=== PATIENT | female | born 1965 | race Caucasian/White ===

== ENCOUNTER 2019-03-17 12:10 | Emergency (ER) | payer SELFPAY ==
--- NOTE | 2019-03-17 13:20 | ER ---
Nurse's Notes [facility] Name: Demetria Salazar Age: 53 yrs Sex: Female : 1965 Arrival Date: 03/17/2019 Time: 12:14 Bed 18 Private MD: Diagnosis: Acute pharyngitis;Acute sinusitis Presentation: 03/17 12:24 Presenting complaint: Nonproductive cough, sinus congestion, sore throat, and left hb periorbital swelling x 3 days. Transition of care: patient was not received from another setting of care. Onset of symptoms was March 14, 2019. Risk Assessment: Do you want to hurt yourself or someone else? Patient reports no desire to harm self or others. Initial Sepsis Screen: Does the patient meet any 2 criteria? No. Patient's initial sepsis screen is negative. Does the patient have a suspected source of infection? No. Patient's initial sepsis screen is negative. Care prior to arrival: None. 12:24 Method Of Arrival: Ambulatory 12:24 Acuity: EBONY 4 hb Triage Assessment: 13:02 Headache History: Denies prior headaches. General: Appears in no apparent distress. Pain: Also complains of. Pain: Denies pain. 13:02 General: Behavior is calm, cooperative. Pain: Denies pain. 13:03 Pain: Denies pain. 19:05 Pain: Denies pain. 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 - Coronavirus screen:: The patient has NOT traveled to [place], [place], or [place] in the past 14 days. The patient has NOT had contact with known/suspected case of Coronavirus? Proceed with normal triage procedures. - Social history:: Smoking status: Patient denies any tobacco usage or history of. - Ebola Screening: : No symptoms or risks identified at this time. Screenin:01 Abuse screen: Denies threats or abuse. Nutritional screening: No deficits noted. Tuberculosis screening: No symptoms or risk factors identified. Fall Risk None identified. Assessment: 12:54 General: Appears in no apparent distress. Behavior is calm, cooperative. Neuro: Level ah of Consciousness is awake, alert, obeys commands, Oriented to person, place, time, situation, Slab Grinder are equal bilaterally Moves all extremities. Cardiovascular: Heart tones S1 S2 present Capillary refill < 3 seconds Pulses are palpable in right radial artery, right dorsalis pedis artery, left radial artery and left dorsalis pedis artery. Respiratory: Airway is patent Breath sounds are clear bilaterally. Respiratory: Reports cough that is productive, Denies fever Parent/caregiver reports the patient having ears are itching. GI: No signs and/or symptoms were reported involving the gastrointestinal system. : No signs and/or symptoms were reported regarding the genitourinary system. EENT: Throat is reddened Reports nasal congestion since one week. EENT: Parent/caregiver reports the patient having swelling under left eye x 3 days. Vital Signs: 12:27 BP 140 / 85; Pulse 80; Resp 16; Temp 97.4; Pulse Ox 100% on R/A; Weight 85.73 kg; hb Height 5 ft. 2 in. (157.48 cm); Pain 3/10; 12:27 Body Mass Index 34.57 (85.73 kg, 157.48 cm) hb ED Course: 12:14 Patient arrived in ED. fj1 12:25 Triage completed. 12:27 Arm band placed on. 12:29 Juan Perez PA is PHCP. [facility] 12:29 Dwain Bird MD is Attending Physician. [facility] 12:39 Dulce Maria Boucher, RN is Primary Nurse. 12:54 Strep Sent. 13:03 Patient has correct armband on for positive identification. Bed in low position. Call light in reach. Adult w/ patient. 13:45 Throat Culture Sent. 13:56 No provider procedures requiring assistance completed. Patient did not have IV access during this emergency room visit. Administered Medications: No medications were administered Outcome: 13:19 Discharge ordered by . [facility] 13:55 Discharged to home ambulatory. 13:55 Condition: good 13:55 Discharge instructions given to patient, Instructed on discharge instructions, follow up and referral plans. medication usage, Demonstrated understanding of instructions, follow-up care, medications, Prescriptions given X 1. 13:57 Patient left the ED. Signatures: Juan Perez PA PA jmm Baxter, Heather, RN RN Nik Mayer fj1 Dulce Maria Boucher, RN RN
--- NOTE | 2019-03-17 13:20 | EDPHYS ---
Physician Documentation [facility] Name: Demetria Salazar Age: 53 yrs Sex: Female : 1965 Arrival Date: 03/17/2019 Time: 12:14 Bed 18 Private MD: ED Physician Dwain Bird HPI: 03/17 12:48 This 53 yrs old Female presents to ER via Ambulatory with complaints of Eye Swelling, jmm Sinus Pain. 12:48 Onset: The symptoms/episode began/occurred gradually, 3 day(s) ago. This is a 53 year jmm old female with a history of hypothyroidism that presents to the ED with complaints of left sided sinus pressure, sore throat, and ear ache. Patient states family has had similar symptoms. Denies fever. . 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 - Coronavirus screen:: The patient has NOT traveled to [place], [place], or [place] in the past 14 days. The patient has NOT had contact with known/suspected case of Coronavirus? Proceed with normal triage procedures. - Social history:: Smoking status: Patient denies any tobacco usage or history of. - Ebola Screening: : No symptoms or risks identified at this time. ROS: 12:48 Constitutional: Negative for fever, chills, and weight loss. jmm 12:48 Cardiovascular: Negative for chest pain, palpitations, and edema, Respiratory: Negative for shortness of breath, cough, wheezing, and pleuritic chest pain. 12:48 Eyes: Positive for discharge, itching. 12:48 ENT: Positive for sore throat. 12:48 ENT: Positive for ear pain. 12:48 All other systems are negative. Exam: 12:48 Constitutional: This is a well developed, well nourished patient who is awake, alert, jmm and in no acute distress. 12:48 Neck: Trachea midline, Supple Chest/axilla: Normal chest wall appearance and motion. Cardiovascular: Regular rate and rhythm. No edema appreciated Respiratory: Normal respirations, no respiratory distress appreciated Abdomen/GI: Non distended, soft Back: Normal ROM Skin: General appearance color normal MS/ Extremity: Moves all extremities, no obvious deformities appreciated, no edema noted to the lower extremities Neuro: Awake and alert, normal gait Psych: Behavior is normal, Mood is normal, Patient is cooperative and pleasant 12:48 Head/face: Sinus tenderness, that is moderate, is located over the left frontal sinus, left ethmoid sinus and left maxillary sinus. 12:48 ENT: Posterior pharynx: Tonsils: enlarged on the right, enlarged on the left, with erythema, erythema, that is moderate. Vital Signs: 12:27 BP 140 / 85; Pulse 80; Resp 16; Temp 97.4; Pulse Ox 100% on R/A; Weight 85.73 kg; hb Height 5 ft. 2 in. (157.48 cm); Pain 3/10; 12:27 Body Mass Index 34.57 (85.73 kg, 157.48 cm) hb MDM: 12:35 Patient medically screened. [facility] 13:18 Data reviewed: vital signs, nurses notes. Counseling: I had a detailed discussion with linnea the patient and/or guardian regarding: the historical points, exam findings, and any diagnostic results supporting the discharge/admit diagnosis, lab results, the need for outpatient follow up, to return to the emergency department if symptoms worsen or persist or if there are any questions or concerns that arise at home. ED course: Patient is alert and non toxic in appearance in the ED. Patient is advised to follow up with her pcp and otherwise given strict return precautions. Patient understood and agrees with the plan of care. . 03/17 12:47 Order name: Strep; Complete Time: 13:18 [facility] 03/17 13:19 Order name: Throat Culture EDMS Administered Medications: No medications were administered Disposition: 03/17/19 13:19 Discharged to Home. Impression: Acute pharyngitis, Acute sinusitis. - Condition is Stable. - Discharge Instructions: Pharyngitis, Sinusitis, Adult. - Prescriptions for Amoxicillin 875 mg Oral Tablet - take 1 tablet by ORAL route every 12 hours for 10 days; 20 tablet. - Medication Reconciliation Form, Thank You Letter, Antibiotic Education, Prescription Opioid Use form. - Follow up: Private Physician; When: 2 - 3 days; Reason: Recheck today's complaints, Continuance of care, Re-evaluation by your physician. Addendum: 03/19/2019 07:07 Co-signature as Attending Physician, Dwain Bird MD I agree with the assessment and c moody plan of care. Signatures: Dispatcher [employer] EDDwain Soto MD MD cha Mickail, Joel, PA PA jmm Baxter, Heather, GOMEZ DYER Dulce Maria Boucher RN RN Corrections: (The following items were deleted from the chart) 03/17 13:57 13:19 03/17/2019 13:19 Discharged to Home. Impression: Acute pharyngitis; Acute ah sinusitis. Condition is Stable. Forms are Medication Reconciliation Form, Thank You Letter, Antibiotic Education, Prescription Opioid Use. Follow up: Private Physician; When: 2 - 3 days; Reason: Recheck today's complaints, Continuance of care, Re-evaluation by your physician. linnea
[2019-03-17 14:02] VITALS: BP 140/85; TEMP 97.4; O2SAT 100
== END 2019-03-17 13:57 | disposition home or self-care (01) ==
LOC: ER 12:10
DX: J01.90 Acute sinusitis, unspecified (principal)
CPT/HCPCS: 87070; 87081; 99283

== ENCOUNTER 2020-08-04 14:28 | Emergency (ER) | payer OTHER ==
--- NOTE | 2020-08-04 17:11 | ER ---
Nurse's Notes [facility] Name: Demetria Salazar Age: 54 yrs Sex: Female : 1965 Arrival Date: 08/04/2020 Time: 14:28 Bed Waiting Private MD: Diagnosis: Presentation: 08/04 14:48 Chief complaint: Patient states: L elbow pain for 5 days. No trauma or falls. PMS ll1 intact. Coronavirus screen: Client denies travel out of the [place] in the last 14 days. At this time, the client does not indicate any symptoms associated with coronavirus-19. Ebola Screen: Patient denies travel to an Ebola-affected area in the 21 days before illness onset. Initial Sepsis Screen: Does the patient meet any 2 criteria? No. Patient's initial sepsis screen is negative. Does the patient have a suspected source of infection? Yes: Bone or joint infection. Risk Assessment: Do you want to hurt yourself or someone else? Patient reports no desire to harm self or others. Onset of symptoms was July 31, 2020. 14:48 Method Of Arrival: Ambulatory ll1 14:48 Acuity: EBONY 4 ll1 Historical: - Allergies: 14:50 Aspirin; ll1 14:50 Codeine; ll1 - PMHx: 14:50 Hypothyroidism; ll1 - PSHx: 14:50 Plastic - newberry; ; ll1 - Immunization history:: Client reports having NOT received the Covid vaccine. Flu vaccine is not up to date. - Social history:: Smoking status: Patient reports the use of cigarette tobacco products, smokes one-half pack cigarettes per day. Vital Signs: 14:48 BP 105 / 70; Pulse 90; Resp 17; Temp 97.2; Pulse Ox 96% ; Weight 71.21 kg; Height 5 ft. ll1 2 in. (157.48 cm); Pain 9/10; 14:48 Body Mass Index 28.72 (71.21 kg, 157.48 cm) ll1 ED Course: 14:28 Patient arrived in ED. as 14:49 Triage completed. ll1 14:50 Arm band placed on. ll1 Administered Medications: No medications were administered Outcome: 17:11 Patient left the ED. iw Signatures: Josiane Alarcon Irene, RN RN iw Hank, Lynsay, RN RN ll1
[2020-08-04 17:51] VITALS: BP 105/70; TEMP 97.2; O2SAT 96
== END 2020-08-04 17:11 | disposition left against medical advice (07) ==
LOC: ER 14:28
DX: M25.522 Pain in left elbow (principal); F17.210 Nicotine dependence, cigarettes, uncomplicated; E03.9 Hypothyroidism, unspecified; Z53.21 Procedure and treatment not carried out due to patient leaving prior to being seen by health care provider
CPT/HCPCS: 99281

== ENCOUNTER 2021-01-14 15:20 | Emergency (ER) | payer OTHER ==
[2021-01-14 17:14] LABS: Urine Blood Negative (Negative); Urine Glucose Negative (Negative); Urine Protein Negative (Negative); Urine Specific Gravity 1.025 (1.005-1.030)
[2021-01-14 17:22] LABS: Absolute Lymphocytes (CBC) 2.4 K/uL (0.7-4.9); Basophils % 0.7 % (0-1.3); Hematocrit 39.7 % (36.0-45.0); Lymphocytes % 39.3 % (15.3-44.8); MPV 7.6 fL (7.6-11.3)
[2021-01-14 17:41] LABS: BUN Blood Urea Nitrogen 21 mg/dL (7-18); Bicarbonate 30 mmol/L (21-32); Glucose Level 120 mg/dL (74-106); Potassium 3.9 mmol/L (3.5-5.1); Sodium Level 143 mmol/L (136-145)
[2021-01-14 17:42] LABS: ALT/SGPT 22 U/L (12-78); AST/SGOT 20 U/L (15-37); Albumin 3.4 g/dL (3.4-5.0); Alkaline Phosphatase 76 U/L (45-117); Bilirubin Direct < 0.1 mg/dL (0-0.2); Bilirubin Total 0.2 mg/dL (0.2-1.0); Lipase 271 U/L (73-393); Protein, Total 7.1 g/dL (6.4-8.2)
[2021-01-14] MEDS ORDERED: ONDANSETRON 4 MG/2 ML VIAL ONE (17:58)
[2021-01-14] MEDS ORDERED: FAMOTIDINE 20 MG/2 ML VIAL IV ONE (18:00)
[2021-01-14 18:40] LABS: Urine Bacteria LOADED /HPF (<20); Urine RBC <5 /HPF (NONE SEEN)
--- NOTE | 2021-01-14 18:47 | RAD REPORT ---
EXAM DESCRIPTION: US - Abdomen Exam Limited - 01/14/2021 6:31 pm CLINICAL HISTORY: Abdominal pain. COMPARISON: None. FINDINGS: The patient had eaten 2 hours prior to the examination. This results in the gallbladder be ing contracted limiting evaluation. There are several small echogenic structures within the gallbladder. Clear posterior shadowing is not seen. The biliary tree is normal caliber. IMPRESSION: Several small echogenic structures within the gallbladder may represent stones or polyps . Examination is limited as the patient was not NPO resulting in the gallbladder being contracted. It is recommended that the patient have a gallbladder ultrasound on another day after fasting
[2021-01-14] MEDS ORDERED: CEFTRIAXONE 1000 MG/VIAL ONE (19:04)
--- NOTE | 2021-01-14 19:28 | ER ---
Nurse's Notes [facility] Name: Demetria Salazar Age: 55 yrs Sex: Female : 1965 Arrival Date: 01/14/2021 Time: 15:22 Bed 15 Private MD: Diagnosis: Diarrhea, unspecified;Other cholelithiasis without obstruction;UTI/ Urinary tract infection, site not specified Presentation: 01/14 16:08 Chief complaint: Patient states: Nausea and Diarrhea x2 days. States pressure in vg1 Epigastric area. Also states left lower back pain. Coronavirus screen: Vaccine status: Patient reports receiving the 2nd dose of the covid vaccine. Client denies travel out of the [place] in the last 14 days. Ebola Screen: Patient negative for fever greater than or equal to 101.5 degrees Fahrenheit, and additional compatible Ebola Virus Disease symptoms. Initial Sepsis Screen: Does the patient meet any 2 criteria? No. Patient's initial sepsis screen is negative. Does the patient have a suspected source of infection? No. Patient's initial sepsis screen is negative. Risk Assessment: Do you want to hurt yourself or someone else? Patient reports no desire to harm self or others. Onset of symptoms was January 12, 2021. 16:08 Method Of Arrival: Ambulatory vg1 16:08 Acuity: EBONY 3 vg1 Triage Assessment: 16:11 General: Appears in no apparent distress. uncomfortable, Behavior is calm, cooperative. vg1 Pain: Complains of pain in epigastric area. GI: Reports diarrhea, nausea. 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 - Social history:: Smoking status: Patient reports the use of cigarette tobacco products, smokes one-half pack cigarettes per day. Screenin:55 Abuse screen: Denies threats or abuse. Denies injuries from another. Nutritional jh5 screening: No deficits noted. Tuberculosis screening: No symptoms or risk factors identified. Fall Risk None identified. Assessment: 19:28 General: Appears in no apparent distress. Behavior is calm, cooperative. Neuro: Level jh5 of Consciousness is awake, alert, Oriented to person, place, time, situation. Cardiovascular: Reports None. Respiratory: No deficits noted. Airway is patent Trachea midline Respiratory effort is even, unlabored. GI: Abdomen is flat, non-distended, Reports diarrhea, nausea. Vital Signs: 16:08 BP 116 / 72; Pulse 76; Resp 16; Temp 98.4; Pulse Ox 98% ; Weight 72.57 kg; Height 5 ft. vg1 2 in. (157.48 cm); Pain 7/10; 19:28 BP 119 / 71; Pulse 72; Resp 19; Pulse Ox 99% on R/A; jh5 16:08 Body Mass Index 29.26 (72.57 kg, 157.48 cm) vg1 ED Course: 15:22 Patient arrived in ED. as 16:11 Triage completed. vg1 16:11 Arm band placed on. vg1 16:41 Frank Rangel PA is PHCP. jr8 16:41 Dwain Bird MD is Attending Physician. jr8 16:45 Marisa Ventura, GOMEZ is Primary Nurse. jh5 18:31 Abdomen Limited In Process Unspecified. EDMS 19:27 Sunny Yu MD is Referral Physician. jr8 19:55 Patient has correct armband on for positive identification. Bed in low position. Call 5 light in reach. Side rails up X2. 19:55 No provider procedures requiring assistance completed. Inserted saline lock: 20 gauge jh5 in right antecubital area, using aseptic technique. 19:56 IV discontinued, intact, bleeding controlled, No redness/swelling at site. Pressure jh5 dressing applied. Administered Medications: 18:07 Drug: Zofran (Ondansetron) 4 mg Route: IVP; Site: right antecubital; jh5 18:07 Drug: Pepcid (famotidine) 20 mg Route: IVP; Site: right antecubital; jh5 19:06 Drug: Rocephin (cefTRIAXone) 1 grams Route: IV; Rate: calculated rate; Site: right jh5 antecubital; 19:17 Follow up: IV Status: Completed infusion; IV Intake: 10ml jh5 Intake: 19:17 IV: 10ml; Total: 10ml. 5 Outcome: 19:28 Discharge ordered by . jr8 19:55 Discharged to home with friend. jh5 19:55 Condition: good 19:55 Discharge instructions given to patient, friend, Instructed on discharge instructions, follow up and referral plans. no drinking with medication, Demonstrated understanding of instructions, follow-up care, medications, Prescriptions given X 4. 19:56 Patient left the ED. jh5 Signatures: Dispatcher [employer] EDJosiane Leger Josh, PA PA jr8 Garcia, Victoria, RN RN 1 Marisa Ventura RN RN jh5 Corrections: (The following items were deleted from the chart) 16:13 16:11 PMHx: Hypothyroidism; vg1 vg1 16:13 16:11 PMHx: None; vg1 vg1
--- NOTE | 2021-01-14 19:28 | EDPHYS ---
Physician Documentation [facility] Name: Demetria Salazar Age: 55 yrs Sex: Female : 1965 Arrival Date: 01/14/2021 Time: 15:22 Bed 15 Private MD: ED Physician Dwain Bird HPI: 01/14 18:19 This 55 yrs old Female presents to ER via Ambulatory with complaints of Nausea, jr8 Diarrhea. 18:19 This is a 55-year-old female that has had several days of nausea and diarrhea. Patient jr8 denies any fevers has mild epigastric discomfort.. 19:26 Severity of symptoms: At their worst the symptoms were mild in the emergency department jr8 the symptoms are unchanged. The patient has not experienced similar symptoms in the past. The patient has not recently seen a physician. 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 - Social history:: Smoking status: Patient reports the use of cigarette tobacco products, smokes one-half pack cigarettes per day. ROS: 19:26 Eyes: Negative for injury, pain, redness, and discharge, ENT: Negative for injury, jr8 pain, and discharge, Neck: Negative for injury, pain, and swelling, Cardiovascular: Negative for chest pain, palpitations, and edema, Respiratory: Negative for shortness of breath, cough, wheezing, and pleuritic chest pain, Back: Negative for injury and pain, MS/Extremity: Negative for injury and deformity, Skin: Negative for injury, rash, and discoloration, Neuro: Negative for headache, weakness, numbness, tingling, and seizure. 19:26 Abdomen/GI: Positive for abdominal pain, nausea, diarrhea. Exam: 19:26 Constitutional: This is a well developed, well nourished patient who is awake, alert, jr8 and in no acute distress. Cardiovascular: Regular rate and rhythm with a normal S1 and S2. No gallops, murmurs, or rubs. Normal PMI, no JVD. No pulse deficits. Respiratory: Lungs have equal breath sounds bilaterally, clear to auscultation and percussion. No rales, rhonchi or wheezes noted. No increased work of breathing, no retractions or nasal flaring. Back: No spinal tenderness. No costovertebral tenderness. Full range of motion. Skin: Warm, dry with normal turgor. Normal color with no rashes, no lesions, and no evidence of cellulitis. MS/ Extremity: Pulses equal, no cyanosis. Neurovascular intact. Full, normal range of motion. Neuro: Awake and alert, GCS 15, oriented to person, place, time, and situation. Cranial nerves II-XII grossly intact. Motor strength 5/5 in all extremities. Sensory grossly intact. 19:26 Abdomen/GI: Inspection: abdomen appears normal, Bowel sounds: active, all quadrants, Palpation: soft, in all quadrants, mild abdominal tenderness, in the epigastric area, mass, is not appreciated, rebound tenderness, is not appreciated, voluntary guarding, is not appreciated, involuntary guarding, is not appreciated, no appreciated organomegaly, Indicators: McBurney's point is not tender, Rogers's sign is negative, Rovsing's sign is negative, Liver: no appreciated palpable abnormalities. Vital Signs: 16:08 BP 116 / 72; Pulse 76; Resp 16; Temp 98.4; Pulse Ox 98% ; Weight 72.57 kg; Height 5 ft. vg1 2 in. (157.48 cm); Pain 7/10; 19:28 BP 119 / 71; Pulse 72; Resp 19; Pulse Ox 99% on R/A; jh5 16:08 Body Mass Index 29.26 (72.57 kg, 157.48 cm) vg1 MDM: 16:41 Patient medically screened. [facility] 19:27 Data reviewed: vital signs, nurses notes, lab test result(s), radiologic studies, jr8 ultrasound, and as a result, I will discharge patient. Data interpreted: Pulse oximetry: on room air is 98 %. Interpretation: normal. 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 01/14 16:41 Order name: Basic Metabolic Panel; Complete Time: 17:50 [facility] 01/14 16:41 Order name: CBC with Diff; Complete Time: 17:37 [facility] 01/14 16:41 Order name: Hepatic Function; Complete Time: 17:50 [facility] 01/14 16:41 Order name: Lipase; Complete Time: 17:50 [facility] 01/14 16:41 Order name: Urine Microscopic Only; Complete Time: 18:41 [facility] 01/14 17:14 Order name: Urine Dipstick-Ancillary; Complete Time: 17:37 [facility] 01/14 16:41 Order name: IV Saline Lock; Complete Time: 17:14 [facility] 01/14 16:41 Order name: Labs collected and sent; Complete Time: 17:14 [facility] 01/14 17:51 Order name: US Abdomen Limited; Complete Time: 18:49 [facility] 01/14 18:41 Order name: Urine Culture [facility] 01/14 16:41 Order name: Urine Dipstick-Ancillary (obtain specimen); Complete Time: 17:14 [facility] 01/14 17:13 Order name: Labs - recollect needed: recollect more urine in a yellow top tube please.; bd Complete Time: 17:15 Administered Medications: 18:07 Drug: Zofran (Ondansetron) 4 mg Route: IVP; Site: right antecubital; [facility] 18:07 Drug: Pepcid (famotidine) 20 mg Route: IVP; Site: right antecubital; [facility] 19:06 Drug: Rocephin (cefTRIAXone) 1 grams Route: IV; Rate: calculated rate; Site: right [facility] antecubital; 19:17 Follow up: IV Status: Completed infusion; IV Intake: 10ml [facility] Disposition: 01/15 09:12 Co-signature as Attending Physician, Dwain Bird MD I agree with the assessment and henri plan of care. Disposition Summary: 01/14/21 19:28 Discharge Ordered Location: Home jr Problem: new jr8 Symptoms: have improved jr8 Condition: Stable jr8 Diagnosis - Diarrhea, unspecified jr8 - Other cholelithiasis without obstruction jr8 - UTI/ Urinary tract infection, site not specified jr8 Followup: jr8 - With: Sunny Yu MD - When: 2 - 3 days - Reason: Recheck today's complaints, Continuance of care, Re-evaluation by your physician Discharge Instructions: - Discharge Summary Sheet jr8 - Diarrhea, Adult jr8 - Urinary Tract Infection, Adult jr8 - Cholelithiasis jr8 Forms: - Medication Reconciliation Form jr8 - Thank You Letter jr8 - Antibiotic Education jr8 - Prescription Opioid Use jr8 - Work release form as6 Prescriptions: - Cipro 500 mg Oral Tablet - take 1 tablet by ORAL route every 12 hours for 10 days; 20 tablet; Refills: 0, jr8 Product Selection Permitted - Flagyl 500 mg Oral Tablet - take 1 tablet by ORAL route every 6 hours for 10 days; 40 tablet; Refills: 0, jr8 Product Selection Permitted - Zofran 4 mg Oral Tablet - take 1 tablet by ORAL route every 12 hours As needed; 20 tablet; Refills: 0, jr8 Product Selection Permitted - dicyclomine 20 mg Oral Tablet - take 1 tablet by ORAL route 3 times per day As needed; 20 tablet; Refills: 0, jr8 Product Selection Permitted Signatures: Dispatcher [employer] Leyda Lepe Corey, MD MD cha Roszak, Josh, PA PA jr8 Olamide Ren, RN RN vg1 Marisa Ventura RN RN jh5 Corrections: (The following items were deleted from the chart) 01/14 16:13 16:11 PMHx: Hypothyroidism; vg1 vg1 16:13 16:11 PMHx: None; vg1 vg1
[2021-01-14 20:10] VITALS: TEMP 98.4
[2021-01-14 20:13] VITALS: BP 119/71; O2SAT 99
== END 2021-01-14 19:56 | disposition home or self-care (01) ==
LOC: ER 15:20
DX: K80.80 Other cholelithiasis without obstruction (principal); N39.0 Urinary tract infection, site not specified; F17.210 Nicotine dependence, cigarettes, uncomplicated; Z88.5 Allergy status to narcotic agent; Z88.6 Allergy status to analgesic agent
CPT/HCPCS: 87088; 85025; 87086; 80048; 36415; 80076; 83690; 76705; 96375; 96374; 99284; J2405; 81003; 81015

== ENCOUNTER 2021-01-28 10:15 | Emergency (ER) | payer OTHER ==
[2021-01-28 11:35] LABS: SARS-COV-2 RT PCR NEGATIVE (NEGATIVE)
--- NOTE | 2021-01-28 11:59 | RAD REPORT ---
EXAM DESCRIPTION: RAD - Chest Single View - 01/28/2021 11:32 am CLINICAL HISTORY: COUGH COMPARISON: No comparisons FINDINGS: Lines: None. Lungs: No evidence of edema or pneumonia. Pleural: No significant pleural effusions or pneumothorax. Cardiac: The heart size is within normal limits. Bones: No acute fractures. Other: IMPRESSION: No acute cardiopulmonary disease.
--- NOTE | 2021-01-28 12:04 | ER ---
Nurse's Notes [facility] Name: Demetria Salazar Age: 55 yrs Sex: Female : 1965 Arrival Date: 01/28/2021 Time: 10:16 Bed 11 Private MD: Diagnosis: Cough Presentation: 01/28 10:27 Chief complaint: Patient states: Cough, sore throat, CP with cough for 3 days. ll1 Coronavirus screen: Vaccine status: Patient reports being unvaccinated. Client denies travel out of the [place] in the last 14 days. congestion, cough unrelated to allergies, difficulty breathing, shortness of breath, sore throat, Client presents with at least one sign or symptom that may indicate coronavirus-19. Standard/surgical mask placed on the client. Ebola Screen: Patient denies travel to an Ebola-affected area in the 21 days before illness onset. Initial Sepsis Screen: Does the patient meet any 2 criteria? No. Patient's initial sepsis screen is negative. Does the patient have a suspected source of infection? Yes: Productive cough/pneumonia. Risk Assessment: Do you want to hurt yourself or someone else? Patient reports no desire to harm self or others. Onset of symptoms was January 26, 2021. 10:27 Method Of Arrival: Ambulatory ll1 10:27 Acuity: EBONY 3 ll1 Historical: - Allergies: 10:26 Aspirin; ll1 10:26 Codeine; ll1 - PMHx: 10:26 Hypothyroidism; ll1 - PSHx: 10:26 section; ll1 - Immunization history:: Client reports having NOT received the Covid vaccine. - Social history:: Smoking status: Patient reports the use of cigarette tobacco products, smokes one-half pack cigarettes per day. - Family history:: not pertinent. - Hospitalizations: : No recent hospitalization is reported. Screenin:34 Abuse screen: Denies threats or abuse. Denies injuries from another. Nutritional jh5 screening: No deficits noted. Tuberculosis screening: No symptoms or risk factors identified. Fall Risk None identified. Assessment: 10:30 General: Appears in no apparent distress. comfortable, well groomed, well developed, jh5 well nourished, Behavior is calm, cooperative, appropriate for age. Pain: Denies pain. Pain does not radiate. Pain began when she coughs. Cardiovascular: Capillary refill < 3 seconds Patient's skin is warm and dry. Respiratory: Airway is patent Trachea midline Respiratory effort is even, unlabored, Respiratory pattern is regular, symmetrical. Vital Signs: 10:27 BP 119 / 86; Pulse 86; Resp 16; Temp 97.8; Pulse Ox 98% ; ll1 ED Course: 10:16 Patient arrived in ED. am2 10:19 Dk Silver MD is Attending Physician. rn 10:26 Arm band placed on Patient placed in an exam room, on a stretcher. ll1 10:28 Triage completed. ll1 10:34 Patient has correct armband on for positive identification. Bed in low position. Call [facility] light in reach. Side rails up X 1. 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 Pulse ox on. NIBP on. 10:43 Strep Sent. 5 10:44 No provider procedures requiring assistance completed. Patient maintains SpO2 [facility] saturation greater than 95% on room air. 11:00 Marisa Ventura, RN is Primary Nurse. [facility] 11:32 XRAY Chest (1 view) In Process Unspecified. EDMS Administered Medications: No medications were administered Outcome: 12:03 Discharge ordered by . rn 12:31 Patient left the ED. 5 Signatures: Dispatcher [employer] EDMS Dk Silver MD MD rn Moreno, Amanda am2 Tano Mckinney, GOMEZ RN [facility] Marisa Ventura, RN RN 5 Corrections: (The following items were deleted from the chart) 10:53 10:43 Influenza Screen (A \T\ B)+BA.LAB.BRZ drawn and sent. [facility] EDKY
--- NOTE | 2021-01-28 12:04 | EDPHYS ---
Physician Documentation [facility] Name: Demetria Salazar Age: 55 yrs Sex: Female : 1965 Arrival Date: 01/28/2021 Time: 10:16 Bed 11 Private MD: ED Physician Dk Silver HPI: 01/28 10:33 This 55 yrs old Female presents to ER via Ambulatory with complaints of Chest rn Tightness, Cough. 10:33 The patient or guardian reports cough. rn 10:33 Onset: The symptoms/episode began/occurred 3 day(s) ago. Severity of symptoms: At their rn worst the symptoms were mild, in the emergency department the symptoms are unchanged. Modifying factors: The symptoms are alleviated by nothing, the symptoms are aggravated by nothing. Associated signs and symptoms: Pertinent positives: sore throat, Pertinent negatives: fever. The patient has experienced similar episodes in the past. The patient has not recently seen a physician. Patient reports cough and chest tightness for 3 days. Reports chest hurts and feels tight when coughing. Denies fever denies runny nose. Positive for sore throat. No trauma. Denies any chest pain at rest or with exertion. No diaphoresis. No abdominal pain. No vomiting. Did have small amount of diarrhea. Positive active smoker. Historical: - Allergies: 10:26 Aspirin; ll1 10:26 Codeine; ll1 - PMHx: 10:26 Hypothyroidism; ll1 - PSHx: 10:26 section; ll1 - Immunization history:: Client reports having NOT received the Covid vaccine. - Social history:: Smoking status: Patient reports the use of cigarette tobacco products, smokes one-half pack cigarettes per day. - Family history:: not pertinent. - Hospitalizations: : No recent hospitalization is reported. ROS: 10:33 Constitutional: Negative for fever, chills, and weight loss, Eyes: Negative for injury, rn pain, redness, and discharge, Neck: Negative for injury, pain, and swelling, Cardiovascular: Negative for palpitations, and edema, Respiratory: Positive for cough Abdomen/GI: Negative for abdominal pain, nausea, vomiting, and constipation, Back: Negative for injury and pain, : Negative for injury, bleeding, discharge, and swelling, MS/Extremity: Negative for injury and deformity, Skin: Negative for injury, rash, and discoloration, Neuro: Negative for headache, weakness, numbness, tingling, and seizure. Exam: 10:33 Constitutional: Ambulatory to room without difficulty or requiring assistance rn Head/Face: Normocephalic, atraumatic. Eyes: Periorbital areas with no swelling, redness, or edema. Cardiovascular: Regular rate and rhythm. No pulse deficits. Respiratory: Speaking full sentences, unlabored. No increased work of breathing, no retractions or nasal flaring. Abdomen/GI: Soft, non-tender Skin: Warm, dry MS/ Extremity: Pulses equal, no cyanosis. Neurovascular intact. Full, normal range of motion. Equal circumference. Neuro: Awake and alert, GCS 15, oriented to person, place, time, and situation. Motor strength 5/5 in all extremities. Sensory grossly intact. Cerebellar exam normal. Normal gait. 10:54 ECG was reviewed by the Attending Physician. rn Vital Signs: 10:27 BP 119 / 86; Pulse 86; Resp 16; Temp 97.8; Pulse Ox 98% ; ll1 MDM: 10:19 Patient medically screened. rn 12:02 Differential Diagnosis: Bronchitis Influenza Upper Respiratory Infection Sinusitis rn Pharyngitis Viral Syndrome Pneumonia. Data reviewed: vital signs, nurses notes, lab test result(s), EKG, radiologic studies, and as a result, I will discharge patient. Counseling: I had a detailed discussion with the patient and/or guardian regarding: the historical points, exam findings, and any diagnostic results supporting the discharge/admit diagnosis, lab results, radiology results, the need for outpatient follow up, to return to the emergency department if symptoms worsen or persist or if there are any questions or concerns that arise at home. Special discussion: I discussed with the patient/guardian in detail that at this point there is no indication for admission to the hospital. It is understood, however, that if the symptoms persist or worsen the patient needs to return immediately for re-evaluation. 01/28 10:31 Order name: SARS-COV-2 RT PCR (Document "Date of Onset" if Symptomatic) rn 01/28 10:31 Order name: Strep; Complete Time: 12:02 rn 01/28 10:52 Order name: COVID-19/FLU A+B; Complete Time: 12:02 EDCO 01/28 11:02 Order name: Throat Culture EDCO 01/28 10:31 Order name: XRAY Chest (1 view); Complete Time: 12:02 rn 01/28 10:31 Order name: EKG; Complete Time: 10: rn 01/28 10:31 Order name: EKG - Nurse/Tech; Complete Time: 10:52 rn EC:54 Rate is 69 beats/min. Rhythm is regular. QRS [place] is Normal. MO interval is normal. QRS rn interval is normal. QT interval is normal. No Q waves. T waves are Normal. No ST changes noted. Clinical impression: Normal ECG. Interpreted by me. Reviewed by me. 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 [facility]CO EDMS 10:53 10:31 Influenza Screen (A \\T\\ B)+BA.LAB.BRZ ordered. [facility]CO EDMS
[2021-01-28 12:37] VITALS: BP 119/86; TEMP 97.8; O2SAT 98
== END 2021-01-28 12:31 | disposition home or self-care (01) ==
LOC: ER 10:15
DX: R05.9 Cough, unspecified (principal); E03.9 Hypothyroidism, unspecified; F17.210 Nicotine dependence, cigarettes, uncomplicated; Z20.822 Contact with and (suspected) exposure to COVID-19
CPT/HCPCS: 93005; 87070; 87081; 0240U; 71045; 99284

== ENCOUNTER 2021-06-21 13:36 | Emergency (ER) | payer OTHER ==
[2021-06-21] MEDS ORDERED: HYDROCODONE/APAP 10/325 TAB ONE (14:32)
[2021-06-21] MEDS ORDERED: dexAMETHasone 10 MG/ML VIAL ONE (14:32)
[2021-06-21] MEDS ORDERED: KETOROLAC 30 MG/ML INJ ONE (14:32)
[2021-06-21] MEDS ORDERED: ONDANSETRON 4 MG (ODT) TAB ONE ×2 (14:33→14:36)
[2021-06-21] MEDS ORDERED: LIDOCAINE 4% PATCH ONE (14:33)
--- NOTE | 2021-06-21 15:33 | EDPHYS ---
Physician Documentation [facility] Name: Demetria Salazar Age: 55 yrs Sex: Female : 1965 Arrival Date: 06/21/2021 Time: 13:38 Bed 10 Private MD: ED Physician Dwain Bird HPI: 06/21 14:15 This 55 yrs old Female presents to ER via Ambulatory with complaints of Low Back Pain. pm1 14:15 The patient presents with pain that is acute. The symptoms are located in the left low pm1 back. The pain radiates to the left leg. The problem was sustained from unknown cause. Onset: The symptoms/episode began/occurred 2 day(s) ago. Modifying factors: The patient symptoms are alleviated by nothing, the patient symptoms are aggravated by movement. Associated signs and symptoms: Pertinent negatives: dysuria, fever, incontinence, numbness, tingling. Severity of symptoms: in the emergency department the symptoms are unchanged, a " 10" out of "10". The patient has not experienced similar symptoms in the past. The patient has been recently seen by a physician: Patient was seen at [place] [facility] with same complaint and a CT to rule out kidney stone, blood work, and urine sample were performed. Patient reports negative exam and was diagnosed with sciatica. Patient was given Toradol and discharged home. Patient reports no improvement in pain and is here for evaluation and treatment of sciatic pain. 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 - Social history:: Smoking status: Patient reports the use of cigarette tobacco products, smokes one-half pack cigarettes per day. ROS: 14:15 Constitutional: Negative for fever, chills, and weight loss, Cardiovascular: Negative pm1 for chest pain, palpitations, and edema, Respiratory: Negative for shortness of breath, cough, wheezing, and pleuritic chest pain, Abdomen/GI: Negative for abdominal pain, nausea, vomiting, diarrhea, and constipation. 14:15 : Negative for injury, bleeding, discharge, and swelling, MS/Extremity: Negative for injury and deformity, Skin: Negative for injury, rash, and discoloration, Neuro: Negative for headache, weakness, numbness, tingling, and seizure. 14:15 Back: Positive for of the left low back. 14:15 All other systems are negative. Exam: 14:15 Constitutional: This is a well developed, well nourished patient who is awake, alert, pm1 and in no acute distress. Head/Face: Normocephalic, atraumatic. 14:15 Skin: Warm, dry with normal turgor. Normal color with no rashes, no lesions, and no evidence of cellulitis. MS/ Extremity: Pulses equal, no cyanosis. Neurovascular intact. Full, normal range of motion. 14:15 Cardiovascular: Exam negative for acute changes, Rate: normal, Rhythm: regular, Pulses: no pulse deficits are appreciated. 14:15 Respiratory: Exam negative for acute changes, respiratory distress, shortness of breath. 14:15 Abdomen/GI: Exam negative for acute changes, Inspection: abdomen appears normal, Palpation: abdomen is soft and non-tender, in all quadrants. 14:15 Back: vertebral tenderness, is not appreciated, muscle spasm, is appreciated in the left low back. 14:15 Neuro: Exam negative for acute changes, Orientation: is normal, Motor: is normal, moves all fours. Vital Signs: 13:59 BP 120 / 69; Pulse 67; Resp 18; Temp 97.0; Pulse Ox 100% on R/A; Weight 72.57 kg; ph Height 5 ft. 2 in. (157.48 cm); 13:59 Body Mass Index 29.26 (72.57 kg, 157.48 cm) ph MDM: 14:01 Patient medically screened. [facility] 15:30 Data reviewed: vital signs. Data interpreted: Pulse oximetry: on room air is 100 %. pm1 Interpretation: normal. Counseling: I had a detailed discussion with the patient and/or guardian regarding: the historical points, exam findings, and any diagnostic results supporting the discharge/admit diagnosis, the need for outpatient follow up, to return to the emergency department if symptoms worsen or persist or if there are any questions or concerns that arise at home. 15:37 ED course: PMPAware reviewed. pm1 Administered Medications: 14:31 Drug: Ondansetron 4 mg Route: PO; ss 15:41 Follow up: Response: No adverse reaction ph 14:32 Drug: Decadron (dexamethasone) 10 mg Route: IM; Site: right deltoid; ss 15:41 Follow up: Response: No adverse reaction ph 14:39 Drug: TORadol (ketorolac) 60 mg Route: IM; Site: right gluteus; ss 15:41 Follow up: Response: No adverse reaction ph 14:39 Drug: Lidoderm Patch 5 % (700 mg/patch) 1 patches {Note: 4% applied as available from pharmacy..} Route: Topical; Site: affected area; 15:41 Follow up: Response: No adverse reaction; Pain is decreased ph 14:40 Drug: [place] (HYDROcodone-acetaminophen) 10 mg-325 mg 1 tabs Route: PO; ss 15:41 Follow up: Response: No adverse reaction; Pain is decreased; RASS: Alert and Calm (0) ph Disposition Summary: 06/21/21 15:32 Discharge Ordered Location: Home pm1 Problem: new pm1 Symptoms: have improved pm1 Condition: Stable pm1 Diagnosis - Lumbago with sciatica, left side pm1 Followup: pm1 - With: Emergency Department - When: As needed - Reason: Worsening of condition Followup: pm1 - With: Private Physician - When: 2 - 3 days - Reason: Recheck today's complaints, Continuance of care, Re-evaluation by your physician Discharge Instructions: - Discharge Summary Sheet pm1 - Sciatica pm1 Forms: - Medication Reconciliation Form pm1 - Thank You Letter pm1 - Antibiotic Education pm1 - Prescription Opioid Use pm1 - Work release form ph Prescriptions: - Medrol (Darin) 4 mg Oral Tablets, Dose Pack - take 1 tablet by ORAL route as directed - follow package instructions; 1 pm1 packet; Refills: 0, Product Selection Permitted - Tylenol-Codeine #3 300 mg-30 mg Oral - take 2 tablet by ORAL route every 6 hours As needed; 20 tablet; Refills: 0, pm1 Product Selection Permitted - Lidoderm 5 % Topical adhesive patch,medicated - apply 1 patch by TRANSDERMAL route once daily As needed 12 hours on and 12 pm1 hours of in a 24 hour period; 10 patch; Refills: 0, Product Selection Permitted - Cyclobenzaprine 10 mg Oral Tablet - take 1 tablet by ORAL route every 8 hours As needed; 30 tablet; Refills: 0, pm1 Product Selection Permitted Signatures: Dwain Bird MD MD cha Smirch, Shelby, RN RN ss Francie Cooper, RN RN ph Philippe Herrera, GLASS ROBOT OPERATOR GLASS ROBOT OPERATOR pm1
--- NOTE | 2021-06-21 15:33 | ER ---
Nurse's Notes [facility] Name: Demetria Salazar Age: 55 yrs Sex: Female : 1965 Arrival Date: 06/21/2021 Time: 13:38 Bed 10 Private MD: Diagnosis: Lumbago with sciatica, left side Presentation: 06/21 13:59 Chief complaint: Patient states: Pain that radiates form L inguinal area to L buttocks, ph also radiates down leg. Was seen yesterday at [place] ED and evaluated for kidney stone, negative CT and labs normal at that time. Coronavirus screen: Vaccine status: Patient reports being unvaccinated. Ebola Screen: No symptoms or risks identified at this time. Initial Sepsis Screen: Does the patient meet any 2 criteria? No. Patient's initial sepsis screen is negative. Does the patient have a suspected source of infection? No. Patient's initial sepsis screen is negative. Risk Assessment: Do you want to hurt yourself or someone else? Patient reports no desire to harm self or others. Onset of symptoms was June 21, 2021. 13:59 Method Of Arrival: Ambulatory ph 13:59 Acuity: EBONY 4 ph Triage Assessment: 14:02 General: Appears in no apparent distress. uncomfortable, Behavior is calm, cooperative, ph appropriate for age. Pain: Complains of pain in left femoral area Pain radiates to left gluteus oxana. Pain: Pain radiates to left leg. Neuro: Level of Consciousness is awake, alert, obeys commands, Oriented to person, place, time, situation. Cardiovascular: Capillary refill < 3 seconds in bilateral fingers Patient's skin is warm and dry. Respiratory: Airway is patent Respiratory effort is even, unlabored, Respiratory pattern is regular, symmetrical. Derm: Skin is intact, is healthy with good turgor, Skin is pink, warm \T\ dry. Musculoskeletal: Circulation, motion, and sensation intact. Range of motion: intact in all extremities. 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 - Social history:: Smoking status: Patient reports the use of cigarette tobacco products, smokes one-half pack cigarettes per day. Screenin:03 Abuse screen: Denies threats or abuse. Denies injuries from another. Nutritional ph screening: No deficits noted. Tuberculosis screening: No symptoms or risk factors identified. Fall Risk None identified. Assessment: 14:41 General: Appears in no apparent distress. comfortable, Pt is laughing with ED staff and ss family member at bedside. . Pain: Complains of pain in left leg and buttocks and left gluteus oxana. Neuro: Level of Consciousness is awake, alert, obeys commands, Oriented to person, place, time, situation. Cardiovascular: Capillary refill < 3 seconds is brisk in bilateral fingers. Respiratory: Airway is patent Respiratory effort is even, unlabored, Respiratory pattern is regular, symmetrical. GI: No signs and/or symptoms were reported involving the gastrointestinal system. EENT: Oral mucosa is moist. Derm: Skin is intact, is healthy with good turgor, Skin is dry, Skin is pink, warm \T\ dry. normal. Musculoskeletal: Circulation, motion, and sensation intact. Range of motion: intact in all extremities, Swelling absent. 15:43 Reassessment: Patient appears in no apparent distress at this time. Patient and/or ss family updated on plan of care and expected duration. Pain level reassessed. Patient is alert, oriented x 3, equal unlabored respirations, skin warm/dry/pink. Patient states feeling better. Patient states symptoms have improved. Vital Signs: 13:59 BP 120 / 69; Pulse 67; Resp 18; Temp 97.0; Pulse Ox 100% on R/A; Weight 72.57 kg; ph Height 5 ft. 2 in. (157.48 cm); 13:59 Body Mass Index 29.26 (72.57 kg, 157.48 cm) ph ED Course: 13:38 Patient arrived in ED. rg4 13:59 Philippe Herrera NP is PHCP. pm1 13:59 Dwain Bird MD is Attending Physician. pm1 14:01 Triage completed. ph 14:02 Arm band placed on Patient placed in an exam room. ph 14:03 Patient has correct armband on for positive identification. Call light in reach. Door ph closed. Noise minimized. 14:24 Pamela Hyman RN is Primary Nurse. ss 15:43 No provider procedures requiring assistance completed. Patient did not have IV access ss during this emergency room visit. Administered Medications: 14:31 Drug: Ondansetron 4 mg Route: PO; 15:41 Follow up: Response: No adverse reaction ph 14:32 Drug: Decadron (dexamethasone) 10 mg Route: IM; Site: right deltoid; ss 15:41 Follow up: Response: No adverse reaction ph 14:39 Drug: TORadol (ketorolac) 60 mg Route: IM; Site: right gluteus; ss 15:41 Follow up: Response: No adverse reaction ph 14:39 Drug: Lidoderm Patch 5 % (700 mg/patch) 1 patches {Note: 4% applied as available from pharmacy..} Route: Topical; Site: affected area; 15:41 Follow up: Response: No adverse reaction; Pain is decreased ph 14:40 Drug: [place] (HYDROcodone-acetaminophen) 10 mg-325 mg 1 tabs Route: PO; ss 15:41 Follow up: Response: No adverse reaction; Pain is decreased; RASS: Alert and Calm (0) ph Outcome: 15:32 Discharge ordered by MD. pm1 15:43 Discharged to home ambulatory. 15:43 Condition: good 15:43 Discharge instructions given to patient, Instructed on discharge instructions, follow up and referral plans. medication usage, Demonstrated understanding of instructions, follow-up care, medications, Prescriptions given X 4. 15:46 Patient left the ED. Signatures: Pamela Hyman RN RN Francie Cooper RN RN Philippe Herrera, DEE INSURANCE PRODUCER 1 Florina Ren rg4 Corrections: (The following items were deleted from the chart) 15:41 15:41 Response: No adverse reaction; Pain is decreased ph ph
[2021-06-21 15:56] VITALS: BP 120/69; TEMP 97; O2SAT 100
== END 2021-06-21 15:46 | disposition home or self-care (01) ==
LOC: ER 13:36
DX: M54.42 Lumbago with sciatica, left side (principal); F17.210 Nicotine dependence, cigarettes, uncomplicated; Z88.5 Allergy status to narcotic agent; Z88.6 Allergy status to analgesic agent
CPT/HCPCS: 96372; 99283; J1100

== ENCOUNTER 2021-12-24 10:40 | Emergency (ER) | payer OTHER ==
--- OUTSIDE RECORDS SUMMARY | 2021-12-24 10:44 | XMS REPORT | Continuity of Care Document ---
:1965 Author Organization [facility] t Address [address] [place] [address] Dr. Ng [address] [place] [address] Care Team Providers Name Role Phone Unavailable Unavailable Unavailable Problems This patient has no known problems. Allergies, Adverse Reactions, Alerts This patient has no known allergies or adverse reactions. Medications This patient has no known medications. Procedures This patient has no known procedures. Results Test Description Test Time Test Comments Results Result Comments Source CULTURE, URINE 2021-09-07 SPECIMEN NUMBER: 11:47:32 [id number] CULTURE, URINE SPECIMEN NUMBER: [id number] SPECIMEN COMMENT: URINE SOURCE: URINE REPORT STATUS: FINAL ISOLATE NUMBER 1: ORGANISM: 09/05/2021 10-50,000 CFU/ML GRAM NEGATIVE BACILLI IDENTIFICATION: 09/06/2021 ESCHERICHIA COLI ADDITIONAL OBSERVATIONS: 09/07/2021 <10,000 CFU/ML UROGENITAL SUNITA PRESENT NO COMMON PATHOGENS E. COLI AMOX ICILLIN/CA SENSITIVE <=8/4AMPICILLIN RESISTANT >16CEFAZOLIN SENSITIVE <=2CEFTRIAXONE SENSITIVE <=1CIPROFLOXACIN SENSITIVE <=1LEVOFLOXACIN SENSITIVE <=2NITROFURANTOIN SENSITIVE <=32PIP/TAZOBAC SENSITIVE <=16TETRACYCLINE RESISTANT >8TOBRAMYCIN SENSITIVE <=4TRIMETH/SULFA SENSITIVE <=2/38 NOTE: NUMBERS DISPLAYED REPRESENT MINIMUM INHIBITORY CONCENTRATION (REYNA) WHICH IS EXPRESSED IN MCG/ML. PAP TEST, THINPREP, IMAGED 2021-09-05 10:20:54 Test Item Value Reference Range Interpretation Comme nts SOURCE: (test code = Cervical/Endocervical 8001) SLIDES: (test code = 1 7144) LMP: (test code = 02/14/2013 8021) SPECIMEN ADEQUACY: (NOTE) Satisfac tory for (test code = 40707) evaluati on. Endocervical cells/transform ation zone component not i dentified. INTERPRETATION: NILM/NO EPITH. ABNORMALITY;SEE (test code = 48819) BELOW -------- NEGATIVE FOR INTRAEPITHE LIAL LESION OR MALIGNANCY ( NILM) -- COOK HELPER JUICE: CONSTANZA Sal (ASCP) (test code = 8101) LOCATION: (test code (NOTE) Specime ns processed and = 31894) [facility], [address] [place] [address], Phone: , CLIA: [id number] CPT: (test code = (NOTE) 60171 UNLE SS OTHERWISE 8140) INDICATED, COMP UTER AIDED AND CYTOTECHNOL OGIST SCREENING PERFO RMED. The Pap test is a scree brad test with an inheren t, but low probability of error. Your patient should be reminded to consult you immediately if she experien sandhya any suspicious sign s or symptoms, regar dless of her Pap test result . An alternate repor t format containing imag es or consolidated pr ior Pap history is rayray scherer as applicable. HPV HIGH RISK WITH GENOTYPE, [id number] 17:39:19 Test Item Value Reference Range Interpretation Comments HPV HIGH RISK INTERP NEGATIVE NEGATIVE (test code = 71615) HPV 16 (test code = NEGATIVE 97545) HPV 18 (test code = NEGATIVE 77853) HPV, HR, OTHER NEGATIVE Testing meth odology is GENOTYPES (test code real-ti me PCR utilizing = 74378) hydrolysis prob es with the [employer] 4800 system. The chata t individually de tects genotypes 16 an d 18, as well as the oth er 12 high risk types (31,33,35,39,45 ,51,52,56 ,58,59,66,68). The expected result is negative. A neg ative result does not rule out the presence of HPV not included in the genotype set, a low leve l of infection or sp ecimen sampling error. UNLESS OTHERWISE INDIC ATED, ALL TESTING PERFORM ED [facility], [facility]. [address] [place] [address] LABORATORY DIRE CTOR: REBECA ALEX M.D. CLIA NUMBER [id number] [facility] [place] [id number] VAGINAL PATHOGENS DNA [id number] 15:53:00 Test Item Value Reference Range Interpretation Comments ALTA SPECIES (test NEGATIVE NEGATIVE code = 29007) G. VAGINALIS (test NEGATIVE NEGATIVE code = 96192) T. VAGINALIS (test NEGATIVE NEGATIVE UNLESS O THERWISE code = 93658) INDICATED, ALL TESTING PERFORMED [facility] PATHOLOGY LABOR COUNTS INCLUDE 234 BEDS AT THE [facility], [facility]. [address] [place], [place] [address] LABORATORY DIRE CTOR: REBECA ALEX M.D. CLIA NUMBER [id number] [place] [id number]
[2021-12-24 11:17] LABS: Absolute Lymphocytes (CBC) 2.2 K/uL (0.7-4.9); Hematocrit 38.9 % (36.0-45.0); Lymphocytes % 38.1 % (15.3-44.8); MCV 91.1 fL (80-100); MPV 7.3 fL (7.6-11.3); RBC Red Blood Cell Count 4.27 M/uL (3.86-4.86)
--- NOTE | 2021-12-24 11:54 | RAD REPORT ---
EXAM DESCRIPTION: CT - Stone Protocol - 12/24/2021 11:40 am CLINICAL HISTORY: Abdominal pain. Right flank pain COMPARISON: None. TECHNIQUE: Computed axial tomography of the abdomen pelvis was obtained without oral or IV contrast. Lack of IV and oral contrast limits evaluation of solid organs, appendix, bowel, and vessels. Slater l reformatted images were obtained and reviewed. All CT scans are performed using dose optimization technique as appropriate and may include automated exposure control or mA/KV adjustment according to patient size. FINDINGS: 3 millimeter calculus right kidney. No hydronephrosis. Left renal calculus is not seen. Ur eteral calculus is not visualized. A bladder calculus. The liver, spleen, pancreas and adrenals appear grossly normal There is no evidence of diverticulitis. The appendix appears normal No adnexal mass IMPRESSION: 3 millimeter nonobstructing right renal calculus
[2021-12-24 12:05] LABS: Urine Blood Negative (Negative); Urine Glucose Negative (Negative); Urine Protein Negative (Negative); Urine Specific Gravity 1.025 (1.005-1.030)
[2021-12-24 12:18] LABS: Urine Bacteria <20 /HPF (<20); Urine Mucus Slight /HPF (None Seen); Urine RBC <5 /HPF (None Seen)
[2021-12-24 12:27] LABS: Albumin 3.7 g/dL (3.4-5.0); Bilirubin Total 0.6 mg/dL (0.2-1.0); Potassium 3.8 mmol/L (3.5-5.1); Protein, Total 7.4 g/dL (6.4-8.2)
--- NOTE | 2021-12-24 13:32 | EDPHYS ---
Physician Documentation [facility] Name: Demetria Salazar Age: 56 yrs Sex: Female : 1965 Arrival Date: 12/24/2021 Time: 10:44 Bed 15 Private MD: ED Physician Dk Silver HPI: 12/24 13:30 This 56 yrs old Female presents to ER via Ambulatory with complaints of Possible Kidney rn Stone. 13:30 The patient complains of pain in the right mid back. The pain radiates to the abdomen. rn Onset: The symptoms/episode began/occurred 3 day(s) ago. Modifying factors: The symptoms are alleviated by nothing. the symptoms are aggravated by nothing. Associated signs and symptoms: Pertinent negatives: fever, urinary frequency, hematuria, vomiting. Severity of pain: At its worst the pain was moderate in the emergency department the pain is unchanged. The patient has not experienced similar symptoms in the past. The patient has not recently seen a physician. 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 - Social history:: Smoking status: Patient reports the use of cigarette tobacco products, denies chronic smoking, but will smoke occasionally. - Family history:: not pertinent. - Hospitalizations: : No recent hospitalization is reported. ROS: 13:30 Constitutional: Negative for fever, chills, and weight loss, Eyes: Negative for injury, rn pain, redness, and discharge, Neck: Negative for injury, pain, and swelling, Cardiovascular: Negative for chest pain, palpitations, and edema, Respiratory: Negative for shortness of breath, cough, wheezing, and pleuritic chest pain, Abdomen/GI: Negative for abdominal pain, nausea, vomiting, diarrhea, and constipation, Back: + flank pain : Negative for injury, bleeding, discharge, and swelling, MS/Extremity: Negative for injury and deformity, Skin: Negative for injury, rash, and discoloration, Neuro: Negative for headache, weakness, numbness, tingling, and seizure. Exam: 13:30 Constitutional: This is a well developed, well nourished patient who is awake, alert, rn and in no acute distress. Head/Face: Normocephalic, atraumatic. Cardiovascular: Regular rate and rhythm. No pulse deficits. Respiratory: No increased work of breathing, no retractions or nasal flaring. Abdomen/GI: Soft, non-tender Back: No spinal tenderness. No costovertebral tenderness. Full range of motion. Skin: Warm, dry with normal turgor. Normal color with no rashes, no lesions, and no evidence of cellulitis. MS/ Extremity: Pulses equal, no cyanosis. Neuro: Awake and alert, GCS 15 Vital Signs: 11:00 BP 111 / 68; Pulse 74; Pulse Ox 99% on R/A; kb3 11:02 BP 116 / 70; Pulse 71; Resp 16; Temp 98.6; Pulse Ox 100% ; Weight 77.11 kg; Height 5 jh5 ft. 2 in. (157.48 cm); Pain 9/10; 13:35 BP 124 / 72; Pulse 68; Pulse Ox 99% on R/A; ko1 11:02 Body Mass Index 31.09 (77.11 kg, 157.48 cm) 5 MDM: 11:15 Patient medically screened. rn 13:30 Differential diagnosis: nephrolithiasis, pyelonephritis, UTI. Data reviewed: vital rn signs, nurses notes, lab test result(s), radiologic studies, CT scan, and as a result, I will discharge patient. Counseling: I had a detailed discussion with the patient and/or guardian regarding: the historical points, exam findings, and any diagnostic results supporting the discharge/admit diagnosis, lab results, radiology results, the need for outpatient follow up, to return to the emergency department if symptoms worsen or persist or if there are any questions or concerns that arise at home. Special discussion: I discussed with the patient/guardian in detail that at this point there is no indication for admission to the hospital. It is understood, however, that if the symptoms persist or worsen the patient needs to return immediately for re-evaluation. Based on the history and exam findings, there is no indication for further emergent testing or inpatient evaluation. I discussed with the patient/guardian the need to see the primary care provider for further evaluation of the symptoms. ED course: No acute findings, most likely recently passed stone, no UTI, will dc home with return precautions. . 11/10 10:53 Order name: CBC with Diff; Complete Time: 12:44 [facility] 12/24 11:05 Order name: CMP; Complete Time: 12:44 [facility] 12/24 11:05 Order name: Lipase; Complete Time: 12:44 [facility] 12/24 11:22 Order name: CT Stone Protocol; Complete Time: 12:44 rn 12/24 11:23 Order name: Urine Microscopic Only; Complete Time: 12:44 rn 12/24 12:05 Order name: Urine Dipstick-Ancillary; Complete Time: 12:44 [facility] 12/24 12:19 Order name: Urine Culture [facility] 12/24 11:05 Order name: IV Saline Lock; Complete Time: 11:10 [facility] 12/24 11:05 Order name: Labs collected and sent; Complete Time: 11:10 [facility] 12/24 11:23 Order name: Urine Dipstick-Ancillary (obtain specimen); Complete Time: 12:26 rn 12/24 11:25 Order name: Labs - recollect needed: green top; Complete Time: 11:57 kj1 Administered Medications: No medications were administered Disposition Summary: 12/24/21 13:32 Discharge Ordered Location: Home rn Problem: new rn Symptoms: have improved rn Condition: Stable rn Diagnosis - Calculus of kidney rn Followup: rn - With: Private Physician - When: As needed - Reason: Recheck today's complaints, Re-evaluation by your physician Discharge Instructions: - Discharge Summary Sheet rn - Kidney Stones rn - Renal Colic rn Forms: - Medication Reconciliation Form rn - Thank You Letter rn - Antibiotic record label internship - Prescription Opioid Use rn - Work release form ko1 Signatures: Dispatcher [employer] Dk Doran MD MD rn Jackson, Kandis kj1 Marisa Ventura RN RN [facility] Corrections: (The following items were deleted from the chart) 10:59 10:53 Cardiac monitoring ordered. [place] [id number] 10:59 10:53 IV Saline Lock ordered. [place] [address] 11:00 10:53 EKG - Nurse/Tech ordered. [place] [address] 11:00 10:53 Labs collected and sent ordered. [place] [address] 11:00 10:53 Oxygen Per Protocol ordered. [place] [address] 11:00 10:53 O2 Sat Monitoring ordered. [place] [address] 11:22 10:53 Chest Single View+RAD.RAD.BRZ ordered. EDMS EDMS 10:53 BASIC METABOLIC PANEL+C.LAB.BRZ ordered. EDMS EDMS 10:53 Troponin High Sensitivity+C.LAB.BRZ ordered. EDMS EDMS 11:15 BASIC METABOLIC PANEL+C.LAB.BRZ reviewed. rn EDMS 11:15 Troponin High Sensitivity+C.LAB.BRZ reviewed. rn EDMS
--- NOTE | 2021-12-24 13:32 | ER ---
Nurse's Notes [facility] Name: Demetria Salazar Age: 56 yrs Sex: Female : 1965 Arrival Date: 12/24/2021 Time: 10:44 Bed 15 Private MD: Diagnosis: Calculus of kidney Presentation: 12/24 11:02 Chief complaint: Patient states: right lower abdominal pain that radiates to the back 5 right flank since Tuesday; denies frequency or burning with urination. Coronavirus screen: Vaccine status: Patient reports being unvaccinated. Client denies travel out of the [place] in the last 14 days. Ebola Screen: Patient negative for fever greater than or equal to 101.5 degrees Fahrenheit, and additional compatible Ebola Virus Disease symptoms Patient denies exposure to infectious person. Patient denies travel to an Ebola-affected area in the 21 days before illness onset. Initial Sepsis Screen: Does the patient meet any 2 criteria? No. Patient's initial sepsis screen is negative. Does the patient have a suspected source of infection? No. Patient's initial sepsis screen is negative. Risk Assessment: Do you want to hurt yourself or someone else? Patient reports no desire to harm self or others. 11:02 Method Of Arrival: Ambulatory [facility] 11:02 Acuity: EBONY 3 5 Triage Assessment: 11:03 General: Appears uncomfortable, slender, well groomed, well developed, emaciated, [facility] Behavior is calm, cooperative, appropriate for age. Pain: Complains of pain in abdomen. Cardiovascular: No deficits noted. GI: Reports lower abdominal pain. 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 - Social history:: Smoking status: Patient reports the use of cigarette tobacco products, denies chronic smoking, but will smoke occasionally. - Family history:: not pertinent. - Hospitalizations: : No recent hospitalization is reported. Screenin:00 Abuse screen: Denies threats or abuse. Denies injuries from another. Nutritional kb3 screening: No deficits noted. Tuberculosis screening: No symptoms or risk factors identified. Fall Risk None identified. Assessment: 11:00 Pain: Pain does not radiate. Pain began 1 day ago. kb3 Vital Signs: 11:00 BP 111 / 68; Pulse 74; Pulse Ox 99% on R/A; kb3 11:02 BP 116 / 70; Pulse 71; Resp 16; Temp 98.6; Pulse Ox 100% ; Weight 77.11 kg; Height 5 [facility] ft. 2 in. (157.48 cm); Pain 9/10; 13:35 BP 124 / 72; Pulse 68; Pulse Ox 99% on R/A; ko1 11:02 Body Mass Index 31.09 (77.11 kg, 157.48 cm) [facility] ED Course: 10:44 Patient arrived in ED. 4 11:00 Patient has correct armband on for positive identification. Placed in gown. Bed in low kb3 position. Call light in reach. Side rails up X 1. Client placed on continuous cardiac and pulse oximetry monitoring. NIBP monitoring applied. environmental monitoring specialist on. Door closed. Noise minimized. Warm blanket given. Pillow given. 11:00 Inserted saline lock: 22 gauge in right antecubital area, using aseptic technique. kb3 Patient maintains SpO2 saturation greater than 95% on room air. 11:03 Triage completed. [facility] 11:03 Marisa Ventura, RN is Primary Nurse. [facility] 11:03 Arm band placed on right wrist. [facility] 11:15 Dk Silver MD is Attending Physician. rn 11:42 CT Stone Protocol In Process Unspecified. EDKS 12:26 Urine Culture Sent. kb3 13:35 No provider procedures requiring assistance completed. IV discontinued, intact, ko1 bleeding controlled, No redness/swelling at site. Pressure dressing applied. Administered Medications: No medications were administered Medication: 11:00 VIS not applicable for this client. kb3 Outcome: 13:32 Discharge ordered by . rn 13:46 Discharged to home ambulatory. ko1 13:46 Condition: good 13:46 Discharge instructions given to patient, Instructed on discharge instructions, follow up and referral plans. Demonstrated understanding of instructions, follow-up care. 13:53 Patient left the ED. ko1 Signatures: Dispatcher [employer] EDMS Dk Silver MD MD rn Garcia, Rubi 4 Marisa Ventura RN RN jh5 Juana Lee, RN RN kb3 Yolette Banks, RN RN ko1
[2021-12-24 14:16] VITALS: TEMP 98.6
[2021-12-24 14:18] VITALS: BP 124/72; O2SAT 99
== END 2021-12-24 13:53 | disposition home or self-care (01) ==
LOC: ER 10:40
DX: N20.0 Calculus of kidney (principal); F17.210 Nicotine dependence, cigarettes, uncomplicated; Z88.5 Allergy status to narcotic agent; Z88.6 Allergy status to analgesic agent
CPT/HCPCS: 36415; 74176; 76377; 80053; 81003; 81015; 83690; 85025; 99284

== ENCOUNTER 2022-03-02 09:17 | Emergency (ER) | payer OTHER ==
--- OUTSIDE RECORDS SUMMARY | 2022-03-02 09:20 | XMS REPORT | Continuity of Care Document ---
:1965 Author Organization [facility] t Address [address] [place] [address] Care Team Providers Name Role Phone Unavailable Unavailable Unavailable Problems This patient has no known problems. Allergies, Adverse Reactions, Alerts This patient has no known allergies or adverse reactions. Medications This patient has no known medications. Procedures This patient has no known procedures. Results Test Description Test Time Test Comments Results Result Comments Source CULTURE, URINE 2021-09-07 SPECIMEN NUMBER: 11:47:32 [id number] CULTURE, URINE SPECIMEN NUMBER: [id number] SPECIMEN COMMENT: URINE SOURCE: URINE REPORT STATUS: [...] Cervical/Endocervical 8001) SLIDES: (test code = 1 8014) LMP: (test code = 02/14/2013 8021) SPECIMEN ADEQUACY: (NOTE) Satisfac tory for (test code = 30820) evaluati on. Endocervical cells/transform ation zone component not i dentified. INTERPRETATION: NILM/NO EPITH. ABNORMALITY;SEE (test code = 79994) BELOW -------- NEGATIVE FOR INTRAEPITHE LIAL LESION OR MALIGNANCY ( NILM) -- YACHT MASTER: CONSTANZA Sal (ASCP) (test code = 8101) LOCATION: (test code (NOTE) Specime ns processed and = 72291) [facility], [address] [place] [address], Phone: , CLIA: [id number] CPT: (test code = (NOTE) 60915 UNLE SS OTHERWISE 8140) INDICATED, COMP UTER [...] or consolidated pr ior Pap history is avai labjose as applicable. HPV HIGH RISK WITH GENOTYPE, [id number] 17:39:19 Test Item Value Reference Range Interpretation Comments HPV HIGH RISK INTERP NEGATIVE NEGATIVE (test code = 91321) HPV 16 (test code = NEGATIVE 29228) HPV 18 (test code = NEGATIVE 82221) HPV, HR, OTHER NEGATIVE Testing met hodology is GENOTYPES (test code real-ti me PCR utilizing = 59915) hydrolysis prob es with the [employer] 4800 system. The chata t individually de tects genotypes 16 an d 18, as well as the ot er 12 high risk type s (31,33,35,39,45 ,51,52,56 ,58,59,66,68). The expected result is negative. A neg ative result does not rule out the presence of HPV not included in the genotype set, a low leve l of infection or sp ecimen sampling error. UNLESS OTHERWISE INDIC ATED, ALL TESTING PERFORM ED [facility], [facility]. [address] [place] [address] LABORATORY DIRE CTOR: REBECA ALEX M.D. CLIA NUMBER [id number] [facility] [id number] VAGINAL PATHOGENS DNA [id number] 15:53:00 Test Item Value Reference Range Interpretation Comments ALTA SPECIES (test NEGATIVE NEGATIVE code = 98630) G. VAGINALIS (test NEGATIVE NEGATIVE code = 90103) T. VAGINALIS (test NEGATIVE NEGATIVE UNLESS OTHERWISE code = 42853) INDICATED, ALL TESTING PERFORMED [facility] PATHOLOGY LABOR [facility], [facility] [address] [place], [place] [address] LABORATORY DIRE CTOR: REBECA ALEX M.D. CLIA NUMBER [id number] [facility] [place] [id number]
--- NOTE | 2022-03-02 10:36 | RAD REPORT ---
EXAM DESCRIPTION: Alexander Single View03/02/2022 10:28 am CLINICAL HISTORY: Cough COMPARISON: none FINDINGS: The lungs appear clear of acute infiltrate. The heart is normal size IMPRESSION: No acute abnormalities displayed
--- NOTE | 2022-03-02 10:48 | EDPHYS ---
Physician Documentation [facility] Name: Demetria Salazar Age: 56 yrs Sex: Female : 1965 Arrival Date: 03/02/2022 Time: 09:20 Bed 8 Private MD: ED Physician Jann Patterson HPI: 03/02 09:36 This 56 yrs old Female presents to ER via Ambulatory with complaints of Headache, Ear jmm Pain, Chest Tightness, Shortness Of Breath. 09:36 Onset: The symptoms/episode began/occurred gradually, 1 day(s) ago. Modifying factors: jmm The symptoms are alleviated by nothing. the symptoms are aggravated by nothing. Associated signs and symptoms: Pertinent positives: chest pain, with cough, sore throat. Is a 56-year-old female with history of hypothyroidism that presents emerged part with complaints of cough, congestion, sinus pressure, chest pressure with cough. Multiple family numbers have similar symptoms. Patient also complains of left ear pain and fullness.. 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 - Social history:: Smoking status: Patient reports the use of cigarette tobacco products, denies chronic smoking, but will smoke occasionally. ROS: 09:36 Constitutional: Positive for body aches, fatigue. jmm 09:36 ENT: Positive for ear pain. 09:36 Respiratory: Positive for cough. 09:36 Abdomen/GI: Negative for abdominal pain. 09:36 Neuro: Positive for headache. 09:36 All other systems are negative. Exam: 09:36 Constitutional: This is a well developed, well nourished patient who is awake, alert, jmm and in no acute distress. Head/Face: atraumatic. Eyes: EOMI, no conjunctival erythema appreciated 09:36 Neck: Trachea midline, Supple Chest/axilla: Normal chest wall appearance and motion. Cardiovascular: Regular rate and rhythm. No edema appreciated 09:36 Abdomen/GI: Non distended Back: Normal ROM Skin: General appearance color normal MS/ Extremity: Moves all extremities, no obvious deformities appreciated, no edema noted to the lower extremities Neuro: Awake and alert Psych: Behavior is normal, Mood is normal, Patient is cooperative and pleasant 09:36 ENT: TM's: erythema, that is mild, on the left, Posterior pharynx: erythema, that is mild. 09:36 Respiratory: the patient does not display signs of respiratory distress, Respirations: normal, Breath sounds: are clear throughout, no bronchial sounds, no decreased breath sounds, no rales, rhonchi, no stridor, no wheezing. 11:09 ECG was reviewed by the Attending Physician. [facility] Vital Signs: 09:23 BP 118 / 72; Pulse 79; Resp 18 S; Temp 97.8(TE); Pulse Ox 99% on R/A; Weight 77.11 kg aa5 (R); Height 5 ft. 2 in. (157.48 cm) (R); 10:04 BP 104 / 70; Pulse 73; Resp 18; Pulse Ox 97% on R/A; ld1 10:55 BP 111 / 76; Pulse 75; Resp 18; Pulse Ox 99% on R/A; ld1 09:23 Body Mass Index 31.09 (77.11 kg, 157.48 cm) aa5 MDM: 09:36 Patient medically screened. [facility] 10:46 Data reviewed: vital signs, nurses notes. I considered the following discharge [facility] prescriptions or medication management in the emergency department I discussed and recommended Over The Counter medications. Counseling: I had a detailed discussion with the patient and/or guardian regarding: the historical points, exam findings, and any diagnostic results supporting the discharge/admit diagnosis, lab results, radiology results, the need for outpatient follow up, to return to the emergency department if symptoms worsen or persist or if there are any questions or concerns that arise at home. 03/02 09:49 Order name: COVID-19/FLU A+B; Complete Time: 10:51 [facility] 03/02 09:49 Order name: Strep; Complete Time: 10:21 [facility] 03/02 09:49 Order name: Chest Single View XRAY; Complete Time: 10:40 [facility] 03/02 10:22 Order name: Throat Culture EDMS EC:09 Rate is 74 beats/min. Rhythm is regular. QRS [place] is Normal. FL interval is normal. QRS jmm interval is normal. QT interval is normal. No Q waves. T waves are Normal. No ST changes noted. Reviewed by me. Administered Medications: No medications were administered Disposition: 12:47 Co-signature as Attending Physician, Jann Patterson MD I reviewed the patient's care rt provided by the Advanced Practice Provider and agree with the diagnosis and treatment plan. Disposition Summary: 03/02/22 10:47 Discharge Ordered Location: Home [facility] Condition: Stable [facility] Diagnosis - Acute serous otitis media, left ear [facility] Followup: [facility] - With: Private Physician - When: 2 - 3 days - Reason: Recheck today's complaints, Continuance of care, Re-evaluation by your physician Discharge Instructions: - Discharge Summary Sheet [facility] - Otitis Media, Adult [facility] Forms: - Medication Reconciliation Form [facility] - Thank You Letter [facility] - Antibiotic Education [facility] - Prescription Opioid Use [facility] Prescriptions: - cefdinir 300 mg Oral capsule - take 1 capsule by ORAL route every 12 hours for 10 days; 20 capsule; Refills: jmm 0, Product Selection Permitted - promethazine-DM - take 10 milliliter by ORAL route every 4-6 hours As needed; 200 milliliter; [facility] Refills: 0, Product Selection Permitted Signatures: Dispatcher [employer] EDMS Juan Perez PA PA jmm Calderon, Audri, RN RN aa5 Jann Patterson MD MD rt
--- NOTE | 2022-03-02 10:48 | ER ---
Nurse's Notes [facility] Name: Demetria Salazar Age: 56 yrs Sex: Female : 1965 Arrival Date: 03/02/2022 Time: 09:20 Bed 8 Private MD: Diagnosis: Acute serous otitis media, left ear Presentation: 03/02 09:23 Chief complaint: Patient states: chest pain, SOB, cough that began 2 days ago. aa5 Coronavirus screen: cough unrelated to allergies. Ebola Screen: Patient denies travel to an Ebola-affected area in the 21 days before illness onset. Initial Sepsis Screen: Does the patient meet any 2 criteria? No. Patient's initial sepsis screen is negative. Does the patient have a suspected source of infection? No. Patient's initial sepsis screen is negative. Risk Assessment: Do you want to hurt yourself or someone else? Patient reports no desire to harm self or others. Onset of symptoms was February 2022. 09:23 Acuity: EBONY 3 aa5 09:23 Method Of Arrival: Ambulatory aa5 Triage Assessment: 10:56 Headache History: Denies prior headaches. General: Appears in no apparent distress. ld1 comfortable. General: Behavior is calm, cooperative, appropriate for age. Pain: Also complains of no other associated symptoms. Pain: Denies pain. 10:56 Pain: Pain currently is 0 out of 10 on a pain scale. ld1 POND SCALER: 10:56 LMP N/A - Hysterectomy ld1 Historical: - Allergies: 09:23 Aspirin; aa5 09:23 Codeine; aa5 - PMHx: 09:23 Hypothyroidism; aa5 - PSHx: 09:23 section; aa5 - Immunization history:: Adult Immunizations unknown. - Social history:: Smoking status: Patient reports the use of cigarette tobacco products, denies chronic smoking, but will smoke occasionally. Screenin:04 [facility] ED Fall Risk Assessment (Adult) History of falling in the last 3 months, ld1 including since admission No falls in past 3 months (0 pts). Abuse screen: Denies threats or abuse. Denies injuries from another. Nutritional screening: No deficits noted. Tuberculosis screening: No symptoms or risk factors identified. Assessment: 10:04 General: Appears in no apparent distress. comfortable, Behavior is calm, cooperative, ld1 appropriate for age. Pain: Denies pain. Neuro: Level of Consciousness is awake, alert, obeys commands, Oriented to person, place, time, situation, Appropriate for age. Cardiovascular: Capillary refill < 3 seconds Patient's skin is warm and dry. Respiratory: Airway is patent Respiratory effort is even, unlabored. GI: Abdomen is flat, non-distended. : No signs and/or symptoms were reported regarding the genitourinary system. EENT: No signs and/or symptoms were reported regarding the EENT system. Derm: No signs and/or symptoms reported regarding the dermatologic system. Musculoskeletal: No signs and/or symptoms reported regarding the musculoskeletal system. 10:55 Reassessment: Patient appears in no apparent distress at this time. Patient and/or ld1 family updated on plan of care and expected duration. Pain level reassessed. Patient is alert, oriented x 3, equal unlabored respirations, skin warm/dry/pink. Vital Signs: 09:23 BP 118 / 72; Pulse 79; Resp 18 S; Temp 97.8(TE); Pulse Ox 99% on R/A; Weight 77.11 kg aa5 (R); Height 5 ft. 2 in. (157.48 cm) (R); 10:04 BP 104 / 70; Pulse 73; Resp 18; Pulse Ox 97% on R/A; ld1 10:55 BP 111 / 76; Pulse 75; Resp 18; Pulse Ox 99% on R/A; ld1 09:23 Body Mass Index 31.09 (77.11 kg, 157.48 cm) aa ED Course: 09:20 Patient arrived in ED. as 09:20 Juan Perez PA is PHCP. [facility] 09:20 Jann Patterson MD is Attending Physician. [facility] 09:23 Arm band placed on. aa5 09:24 Triage completed. aa5 09:35 Elida Palomo, GOMEZ is Primary Nurse. ld1 10:03 Strep Sent. ld1 10:03 COVID-19/FLU A+B Sent. ld1 10:04 Patient has correct armband on for positive identification. Placed in gown. Bed in low ld1 position. Call light in reach. Side rails up X2. Pulse ox on. NIBP on. Door closed. Noise minimized. Warm blanket given. 10:04 No provider procedures requiring assistance completed. ld1 10:29 Chest Single View XRAY In Process Unspecified. EDMS 10:55 Patient did not have IV access during this emergency room visit. ld1 Administered Medications: No medications were administered Medication: 10:04 VIS not applicable for this client. ld1 Outcome: 10:47 Discharge ordered by . linnea 10:55 Discharged to home ambulatory. ld1 10:55 Condition: stable 10:55 Discharge instructions given to patient, Instructed on discharge instructions, follow up and referral plans. medication usage, Demonstrated understanding of instructions, follow-up care, medications, Prescriptions given X 2. 10:56 Patient left the ED. ld1 Signatures: Dispatcher [employer] EDMS Juan Perez PA PA jmm Martinez, Amelia as Calderon, Audri, RN RN aa5 Elida Palomo RN RN ld1
[2022-03-02 10:51] LABS: SARS-COV-2 RT PCR NEGATIVE (NEGATIVE)
[2022-03-02 11:19] VITALS: TEMP 97.8
[2022-03-02 11:21] VITALS: BP 111/76; O2SAT 99
--- NOTE | 2022-03-03 07:32 | EKG ---
Test Date: 2022-03-02 Test Time: 09:32:40 Campus Chaplain: FELICITAS MEASUREMENT RESULTS: Intervals: Rate: 74 AK: 160 QRSD: 72 QT: 364 QTc: 404 [place]: P: 53 AK: 160 QRS: 62 T: 43 INTERPRETIVE STATEMENTS: Normal sinus rhythm Normal ECG Compared to ECG 01/28/2021 10:49:17 No significant changes Electronically Signed On 03-03-22 07:31:31 CONVEYOR TENDER by Sergio Maharaj
== END 2022-03-02 10:56 | disposition home or self-care (01) ==
LOC: ER 09:17
DX: H65.02 Acute serous otitis media, left ear (principal); R05.9 Cough, unspecified; E03.9 Hypothyroidism, unspecified; F17.210 Nicotine dependence, cigarettes, uncomplicated; Z20.822 Contact with and (suspected) exposure to COVID-19; Z88.5 Allergy status to narcotic agent; Z88.6 Allergy status to analgesic agent
CPT/HCPCS: 87070; 87081; 0240U; 71045; 93005

== ENCOUNTER 2022-04-21 12:10 | Emergency (ER) | payer OTHER ==
--- OUTSIDE RECORDS SUMMARY | 2022-04-21 12:13 | XMS REPORT | Continuity of Care Document ---
:1965 Author Organization [facility] t Address [address] [place] [address] Care Team Providers Name Role Phone Unavailable Unavailable Unavailable Problems This patient has no known problems. Allergies, Adverse Reactions, Alerts This patient has no known allergies or adverse reactions. Medications This patient has no known medications. Procedures This patient has no known procedures. Results Test Description Test Time Test Comments Results Result Comments Source CULTURE, URINE 2021-09-07 SPECIMEN NUMBER: 11:47:[id number] CULTURE, URINE SPECIMEN NUMBER: [id number] SPECIMEN COMMENT: URINE SOURCE: URINE REPORT STATUS: [...] Cervical/Endocervical 8001) SLIDES: (test code = 1 8010) LMP: (test code = 02/14/2013 8021) SPECIMEN ADEQUACY: (NOTE) Satisfac tory for (test code = 33402) evaluati on. Endocervical cells/transform ation zone component not i dentified. INTERPRETATION: NILM/NO EPITH. ABNORMALITY;SEE (test code = 24748) BELOW -------- NEGATIVE FOR INTRAEPITHE LIAL LESION OR MALIGNANCY ( NILM) -- VETERINARY MILK SPECIALIST: CONSTANZA Sal (ASCP) (test code = 8101) LOCATION: (test code (NOTE) Specime ns processed and = 16615) [facility], [address] [place] [address], Phone: , CLIA: [id number] CPT: (test code = (NOTE) 28199 UNLE SS OTHERWISE 8140) INDICATED, COMP UTER [...] consolidated pr ior Pap history is avai gilmer as applicable. HPV HIGH RISK WITH GENOTYPE, [id number] 17:39:19 Test Item Value Reference Range Interpretation Comments HPV HIGH RISK INTERP NEGATIVE NEGATIVE (test code = 17290) HPV 16 (test code = NEGATIVE 32813) HPV 18 (test code = NEGATIVE 30007) HPV, HR, OTHER NEGATIVE Testing meth odology is GENOTYPES (test code real-ti me PCR utilizing = 32978) hydrolysis prob es with the [employer] 4800 system. The chata t individually de [...] OTHERWISE INDIC ATED, ALL TESTING PERFORM ED [facility], [facility]. [address] [place] [address] LABORATORY DIRE CTOR: REBECA ALEX M.D. CLIA NUMBER [id number] [facility] [place] [id number] VAGINAL PATHOGENS DNA [id number] 15:53:00 Test Item Value Reference Range Interpretation Comments ALTA SPECIES (test NEGATIVE NEGATIVE code = 79164) G. VAGINALIS (test NEGATIVE NEGATIVE code = 19243) T. VAGINALIS (test NEGATIVE NEGATIVE UNLESS O THERWISE code = 53373) INDICATED, ALL TESTING PERFORMED [facility] PATHOLOGY LABOR [facility], [facility]. [address] [place], [place] [address] LABORATORY DIRE CTOR: REBECA ALEX M.D. CLIA NUMBER [id number] [facility] [place] [id number]
[2022-04-21] MEDS ORDERED: ONDANSETRON 4 MG (ODT) TAB ONE (12:59)
--- NOTE | 2022-04-21 13:25 | RAD REPORT ---
EXAM DESCRIPTION: US - Abdomen Exam Limited - 04/21/2022 1:06 pm CLINICAL HISTORY: ABD PAIN COMPARISON: Stone Protocol dated 12/24/2021 TECHNIQUE: Sonographic grayscale and color flow images of the right upper quadrant were obtained. FINDINGS: The gallbladder is suboptimally distended, limiting evaluation. Two adjacent echogenic foc i are noted near the fundus, not discretely mobile, without posterior acoustic shadowing. These may r elate to inspissated sludge or adherent small stones, versus small gallbladder polyps. No pericholecy stic fluid or gallbladder wall thickening. The common bile duct is normal measuring 2 mm. The liver demonstrates no findings of intrahepatic biliary dilatation. IMPRESSION: Nonshadowing small probably non mobile echogenic foci in the gallbladder, may relate to inspissated sludge, pattern small stones, or small polyps. No sonographic findings to suggest acute cholecystitis.
[2022-04-21 13:38] LABS: Absolute Lymphocytes (CBC) 2.4 K/uL (0.7-4.9); Hematocrit 38.1 % (36.0-45.0); Lymphocytes % 40.6 % (15.3-44.8); MCV 90.3 fL (80-100); MPV 7.5 fL (7.6-11.3); RBC Red Blood Cell Count 4.22 M/uL (3.86-4.86)
[2022-04-21 14:02] LABS: Albumin 3.6 g/dL (3.4-5.0); Bilirubin Total 0.2 mg/dL (0.2-1.0); Protein, Total 7.1 g/dL (6.4-8.2)
[2022-04-21 14:03] LABS: Thyroid Stimulating Hormone 9.42 uIU/mL (0.358-3.740)
[2022-04-21 14:15] LABS: Urine Blood Negative (Negative); Urine Glucose Negative (Negative); Urine Protein Negative (Negative); Urine Specific Gravity 1.025 (1.005-1.030); Urine pH 6.5 (5.0-7.0)
[2022-04-21 14:32] LABS: Urine Bacteria <20 /HPF (<20); Urine Crystals Unidentified Few /HPF (None Seen); Urine Mucus 1+ /HPF (None Seen); Urine RBC <5 /HPF (None Seen)
[2022-04-21 14:39] VITALS: TEMP 97.6; O2SAT 99
[2022-04-21 14:40] VITALS: BP 124/78
--- NOTE | 2022-05-07 15:15 | ER ---
Nurse's Notes [facility] Name: Demetria Salazar Age: 56 yrs Sex: Female : 1965 Arrival Date: 04/21/2022 Time: 12:11 Bed 9 Private MD: Diagnosis: Disease of gallbladder, unspecified;Hypothyroidism, unspecified Presentation: 04/21 12:25 Chief complaint: Patient states: she started having epigastric pain and nausea starting ap3 Tuesday, but it started worsening today. patient states that she's had this issue off and on for a few years. Coronavirus screen: At this time, the client does not indicate any symptoms associated with coronavirus-19. Ebola Screen: No symptoms or risks identified at this time. Initial Sepsis Screen: Does the patient meet any 2 criteria? No. Patient's initial sepsis screen is negative. Does the patient have a suspected source of infection? No. Patient's initial sepsis screen is negative. Risk Assessment: Do you want to hurt yourself or someone else? Patient reports no desire to harm self or others. Onset of symptoms was April 19, 2022. 12:25 Method Of Arrival: Ambulatory ap3 12:25 Acuity: EBONY 3 ap3 Triage Assessment: 12:28 General: Appears in no apparent distress. Behavior is calm, cooperative, appropriate ap3 for age. Pain: Complains of pain in xiphoid area Quality of pain is described as burning. 12:29 Neuro: Level of Consciousness is awake, alert, obeys commands, Oriented to person, ap3 place, time, situation. Cardiovascular: Patient's skin is warm and dry. Respiratory: Airway is patent Respiratory effort is even, unlabored, Respiratory pattern is regular, symmetrical. GI: Reports nausea. Historical: - Allergies: 12:28 Aspirin; ap3 12:28 Codeine; ap3 - Home Meds: 12:28 None [Active]; ap3 - PMHx: 12:28 Hypothyroidism; ap3 - PSHx: 12:28 section; ap3 - Immunization history:: Client reports having NOT received the Covid vaccine. Flu vaccine is not up to date. - Social history:: Smoking status: Patient reports the use of cigarette tobacco products, denies chronic smoking, but will smoke occasionally. Screenin:29 [facility] ED Fall Risk Assessment (Adult) History of falling in the last 3 months, ap3 including since admission No falls in past 3 months (0 pts). Abuse screen: Denies threats or abuse. Nutritional screening: No deficits noted. Tuberculosis screening: No symptoms or risk factors identified. Assessment: 12:50 General: Appears in no apparent distress. Behavior is calm, cooperative. Pain: Pain hb currently is 3 out of 10 on a pain scale. Neuro: Level of Consciousness is awake, alert, obeys commands, Oriented to person, place, time, situation. Cardiovascular: Patient's skin is warm and dry. Respiratory: Respiratory effort is even, unlabored, Respiratory pattern is regular, symmetrical. GI: Reports epigastric pain, nausea. : No signs and/or symptoms were reported regarding the genitourinary system. EENT: No signs and/or symptoms were reported regarding the EENT system. Derm: Skin is pink, warm \T\ dry. Musculoskeletal: No signs and/or symptoms reported regarding the musculoskeletal system. 12:50 Reassessment: Pt to US. hb 14:20 Reassessment: Patient appears in no apparent distress at this time. Patient and/or hb family updated on plan of care and expected duration. Pain level reassessed. Patient is alert, oriented x 3, equal unlabored respirations, skin warm/dry/pink. Vital Signs: 12:25 BP 112 / 82; Pulse 69; Resp 18; Temp 97.6; Pulse Ox 99% ; Weight 72.57 kg; Height 5 ft. ap3 2 in. ; 14:00 BP 124 / 78; Pulse 66; Resp 15; Pulse Ox 99% ; hb 12:25 Body Mass Index 29.26 (72.57 kg, 157.48 cm) ap3 ED Course: 12:11 Patient arrived in ED. am2 12:14 Martha Haskins FNP-C is PHCP. snw 12:14 Jesus Olivia DO is Attending Physician. snw 12:28 Triage completed. ap3 12:29 Arm band placed on right wrist. ap3 12:50 Patient has correct armband on for positive identification. hb 13:08 Abdomen Limited US In Process Unspecified. EDMS 13:21 Missed attempt(s): 22 gauge in right forearm. Bleeding controlled, band aid applied, hb catheter tip intact. 13:25 Missed attempt(s): 22 gauge in right antecubital area. Bleeding controlled, band aid hb applied, catheter tip intact. 14:05 Genoveva Dejesus, RN is Primary Nurse. hb 14:33 No provider procedures requiring assistance completed. Patient did not have IV access hb during this emergency room visit. Administered Medications: 12:57 Drug: Ondansetron PO 4 mg Route: PO; hb 13:50 Follow up: Response: No adverse reaction hb Medication: 12:50 VIS not applicable for this client. hb Outcome: 14:20 Discharge ordered by . radha 14:33 Discharged to home ambulatory. hb 14:33 Condition: stable 14:33 Discharge instructions given to patient, Instructed on discharge instructions, follow up and referral plans. medication usage, Demonstrated understanding of instructions, follow-up care, medications, Prescriptions given X 1. 14:34 Patient left the ED. hb Signatures: Dispatcher [employer] EDMS Martha Haskins, SENIOR SEARCH MARKETING ANALYST-C SENIOR SEARCH MARKETING ANALYST-Csnw Genoveva Dejesus, RN RN Bibiana Can am2 Bibiana Boggs RN RN ap3
--- NOTE | 2022-05-07 15:15 | EDPHYS ---
Physician Documentation [facility] Name: Demetria Salazar Age: 56 yrs Sex: Female : 1965 Arrival Date: 04/21/2022 Time: 12:11 Bed 9 Private MD: ED Physician Jesus Olivia HPI: 04/21 12:27 This 56 yrs old Female presents to ER via Unassigned with complaints of Epigastric snw Pain, Nausea. 12:27 The patient presents with abdominal pain in the epigastric area. Onset: The snw symptoms/episode began/occurred intermittently x 2 years, + nausea x 3 days. The symptoms do not radiate. Associated signs and symptoms: Pertinent positives: nausea, frequent stools but denies looseness. The symptoms are described as vague. Severity of pain: At its worst the pain was mild moderate. The patient has experienced similar episodes in the past, multiple times, today's symptoms are similar. sees the [facility], has never seen GI, has had C/S \T\ BTL. Historical: - Allergies: 12:28 Aspirin; ap3 12:28 Codeine; ap3 - Home Meds: 12:28 None [Active]; ap3 - PMHx: 12:28 Hypothyroidism; ap3 - PSHx: 12:28 section; ap3 - Immunization history:: Client reports having NOT received the Covid vaccine. Flu vaccine is not up to date. - Social history:: Smoking status: Patient reports the use of cigarette tobacco products, denies chronic smoking, but will smoke occasionally. ROS: 12:26 Constitutional: Negative for fever, chills, and weight loss, Eyes: Negative for injury, snw pain, redness, and discharge, ENT: Negative for injury, pain, and discharge, Neck: Negative for injury, pain, and swelling, Cardiovascular: Negative for chest pain, palpitations, and edema, Respiratory: Negative for shortness of breath, cough, wheezing, and pleuritic chest pain, Back: Negative for injury and pain, : Negative for injury, bleeding, discharge, and swelling, MS/Extremity: Negative for injury and deformity, Skin: Negative for injury, rash, and discoloration, Neuro: Negative for headache, weakness, numbness, tingling, and seizure, Psych: Negative for depression, anxiety, suicide ideation, homicidal ideation, and hallucinations. 12:26 Abdomen/GI: Positive for nausea, epigastric distress. Exam: 12:26 Constitutional: This is a well developed, well nourished patient who is awake, alert, snw and in no acute distress. Head/Face: Normocephalic, atraumatic. Eyes: Pupils equal round and reactive to light, extra-ocular motions intact. Lids and lashes normal. Conjunctiva and sclera are non-icteric and not injected. Cornea within normal limits. Periorbital areas with no swelling, redness, or edema. ENT: Nares patent. No nasal discharge, no septal abnormalities noted. Tympanic membranes are normal and external auditory canals are clear. Oropharynx with no redness, swelling, or masses, exudates, or evidence of obstruction, uvula midline. Mucous membranes moist. Neck: Trachea midline, no thyromegaly or masses palpated, and no cervical lymphadenopathy. Supple, full range of motion without nuchal rigidity, or vertebral point tenderness. No Meningismus. Chest/axilla: Normal chest wall appearance and motion. Nontender with no deformity. No lesions are appreciated. Cardiovascular: Regular rate and rhythm with a normal S1 and S2. No gallops, murmurs, or rubs. Normal PMI, no JVD. No pulse deficits. Respiratory: Lungs have equal breath sounds bilaterally, clear to auscultation and percussion. No rales, rhonchi or wheezes noted. No increased work of breathing, no retractions or nasal flaring. Back: No spinal tenderness. No costovertebral tenderness. Full range of motion. Skin: Warm, dry with normal turgor. Normal color with no rashes, no lesions, and no evidence of cellulitis. MS/ Extremity: Pulses equal, no cyanosis. Neurovascular intact. Full, normal range of motion. Neuro: Awake and alert, GCS 15, oriented to person, place, time, and situation. Cranial nerves II-XII grossly intact. Motor strength 5/5 in all extremities. Sensory grossly intact. Cerebellar exam normal. Normal gait. Psych: Awake, alert, with orientation to person, place and time. Behavior, mood, and affect are within normal limits. 12:26 Abdomen/GI: Inspection: abdomen appears normal, Bowel sounds: normal. Vital Signs: 12:25 BP 112 / 82; Pulse 69; Resp 18; Temp 97.6; Pulse Ox 99% ; Weight 72.57 kg; Height 5 ft. ap3 2 in. ; 14:00 BP 124 / 78; Pulse 66; Resp 15; Pulse Ox 99% ; hb 12:25 Body Mass Index 29.26 (72.57 kg, 157.48 cm) ap3 MDM: 12:16 Patient medically screened. snw 14:21 Differential diagnosis: cholecystitis, Cholelithiasis, gastritis, gastroesophageal snw reflux disease. Data reviewed: vital signs, nurses notes. Counseling: I had a detailed discussion with the patient and/or guardian regarding: the historical points, exam findings, and any diagnostic results supporting the discharge/admit diagnosis, lab results, radiology results, the need for outpatient follow up, to return to the emergency department if symptoms worsen or persist or if there are any questions or concerns that arise at home. Special discussion: Based on the patient's Hx, exam, and Dx evaluation, there is no indication for emergent surgery or inpatient Tx. It is understood by the patient/guardian that if the Sx's persist or worsen they need to return immediately for re-evaluation. Based on the history and exam findings, there is no indication for further emergent testing or inpatient evaluation. I discussed with the patient/guardian the need to see the railway head tender for further evaluation of the symptoms. I discussed with the patient/guardian the need to see the primary care provider for further evaluation of the symptoms. 04/21 12:26 Order name: CBC with Diff; Complete Time: 13:41 snw 04/21 12:26 Order name: CMP; Complete Time: 14:16 snw 04/21 12:26 Order name: Lipase; Complete Time: 14:16 snw 04/21 12:26 Order name: Urine Microscopic Only; Complete Time: 15:00 snw 04/21 12:27 Order name: TSH; Complete Time: 14:16 snw 04/21 14:05 Order name: T4 Free; Complete Time: 14:16 EDMS 04/21 14:15 Order name: Urine Dipstick-Ancillary; Complete Time: 14:16 EDMS 04/21 12:26 Order name: Abdomen Limited US; Complete Time: 13:31 snw 04/21 12:26 Order name: Labs collected and sent; Complete Time: 13:29 snw 04/21 12:26 Order name: Urine Dipstick-Ancillary (obtain specimen); Complete Time: 14:14 snw Administered Medications: 12:57 Drug: Ondansetron PO 4 mg Route: PO; hb 13:50 Follow up: Response: No adverse reaction hb Disposition: 12:29 Co-signature as Attending Physician, Jesus Olivia DO I was immediately available on-site ms3 in the Emergency Department for consultation in the care of the patient. Disposition Summary: 04/21/22 14:20 Discharge Ordered Location: Home snw Condition: Stable snw Diagnosis - Disease of gallbladder, unspecified snw - Hypothyroidism, unspecified snw Followup: snw - With: Emergency Department - When: As needed - Reason: Worsening of condition Followup: snw - With: Private Physician - When: 2 - 3 days - Reason: Recheck today's complaints, Continuance of care, Re-evaluation by your physician Discharge Instructions: - Discharge Summary Sheet snw - Biliary Colic, Adult snw - Hypothyroidism snw - Nausea, Adult snw - Cholelithiasis snw Forms: - Medication Reconciliation Form snw - Thank You Letter snw - Antibiotic Education snw - Prescription Opioid Use snw Prescriptions: - Zofran 4 mg Oral Tablet - take 1 tablet by ORAL route every 12 hours As needed; 20 tablet; Refills: 0, snw Product Selection Permitted Signatures: Dispatcher [employer] Martha Hess, OLIVER-C CERTIFIED HEARING INSTRUMENT DISPENSER-Csnw Genoveva Dejesus, RN GOMEZ Bibiana Boggs RN RN ap3 Jesus Olivia DO DO ms3
== END 2022-04-21 14:34 | disposition home or self-care (01) ==
LOC: ER 12:10
DX: K82.9 Disease of gallbladder, unspecified (principal); E03.9 Hypothyroidism, unspecified; F17.210 Nicotine dependence, cigarettes, uncomplicated
CPT/HCPCS: 87088; 85025; 87086; 36415; 84443; 84439; 83690; 80053; 76705; 99283; Q0162; 81003; 81015

== ENCOUNTER 2022-04-25 18:58 | Emergency (ER) | payer OTHER ==
--- OUTSIDE RECORDS SUMMARY | 2022-04-25 19:00 | XMS REPORT | Continuity of Care Document ---
:1965 Author Organization [facility] t Address [address] [place] [address] Care Team Providers Name Role Phone Unavailable Unavailable Unavailable Problems This patient has no known problems. Allergies, Adverse Reactions, Alerts This patient has no known allergies or adverse reactions. Medications This patient has no known medications. Procedures This patient has no known procedures. Results Test Description Test Time Test Comments Results Result Comments Source CULTURE, URINE 2021-09-07 SPECIMEN NUMBER: 11:47:32 [id number] CULTURE, URINE SPECIMEN NUMBER: [id number] SPECIMEN COMMENT: URINE SOURCE: URINE REPORT STATUS: [...] Cervical/Endocervical 8001) SLIDES: (test code = 1 8018) LMP: (test code = 02/14/2013 8021) SPECIMEN ADEQUACY: (NOTE) Satisfac tory for (test code = 65538) evaluati on. Endocervical cells/transform ation zone component not i dentified. INTERPRETATION: NILM/NO EPITH. ABNORMALITY;SEE (test code = 15512) BELOW -------- NEGATIVE FOR INTRAEPITHE LIAL LESION OR MALIGNANCY ( NILM) -- INTELLIGENCE SENIOR SERGEANT: CONSTANZA Sal (ASCP) (test code = 8101) LOCATION: (test code (NOTE) Specime ns processed and = 43227) [facility], [address] [place] [address], Phone: , CLIA: [id number] CPT: (test code = (NOTE) 56765 UNLE SS OTHERWISE 8140) INDICATED, COMP UTER [...] as applicable. HPV HIGH RISK WITH GENOTYPE, [id number] 17:39:19 Test Item Value Reference Range Interpretation Comments HPV HIGH RISK INTERP NEGATIVE NEGATIVE (test code = 18900) HPV 16 (test code = NEGATIVE 75258) HPV 18 (test code = NEGATIVE 51984) HPV, HR, OTHER NEGATIVE Testing meth odology is GENOTYPES (test code real-ti me PCR utilizing = 98631) hydrolysis prob es with the [employer] 4800 system. The chata t individually de [...] OTHERWISE INDIC ATED, ALL TESTING PERFORM ED [facility], [facility]. [address] [place] [address] LABORATORY DIRE CTOR: REBECA ALEX M.D. CLIA NUMBER [id number] [facility] [place]. [id number] VAGINAL PATHOGENS DNA [id number] 15:53:00 Test Item Value Reference Range Interpretation Comments ALTA SPECIES (test NEGATIVE NEGATIVE code = 23188) G. VAGINALIS (test NEGATIVE NEGATIVE code = 52282) T. VAGINALIS (test NEGATIVE NEGATIVE UNLESS O THERWISE code = 86764) INDICATED, ALL TESTING PERFORMED [facility] PATHOLOGY LABOR [facility], [facility]. [address] [place], [place] [address] LABORATORY DIRE CTOR: REBECA ALEX M.D. CLIA NUMBER [id number] [facility] [place] [id number]
[2022-04-25 21:41] LABS: Absolute Lymphocytes (CBC) 2.7 K/uL (0.7-4.9); Hematocrit 39.3 % (36.0-45.0); Lymphocytes % 42.9 % (15.3-44.8); MCV 89.6 fL (80-100); MPV 7.7 fL (7.6-11.3); RBC Red Blood Cell Count 4.39 M/uL (3.86-4.86)
--- NOTE | 2022-04-25 21:53 | RAD REPORT ---
EXAM DESCRIPTION: RAD - Chest Single View - 04/25/2022 9:39 pm CLINICAL HISTORY: CHEST PAIN Chest pain. COMPARISON: Chest Single View dated 03/02/2022; Chest Single View dated 01/28/2021 FINDINGS: Portable technique limits examination quality. The lungs are grossly clear. The heart is mildly prominent in size. No displaced fractures.
[2022-04-25 21:57] LABS: ALT/SGPT 25 U/L (13-56); AST/SGOT 19 U/L (15-37); Alkaline Phosphatase 72 U/L (45-117); BUN Blood Urea Nitrogen 16 mg/dL (7-18); Bicarbonate 29 mmol/L (21-32); Bilirubin Total 0.3 mg/dL (0.2-1.0); Glomerular Filtration Rate 70 ml/min (=/>90); Glucose Level 91 mg/dL (74-106); Lipase 65 U/L (13-75); Potassium 3.9 mmol/L (3.5-5.1); Protein, Total 7.3 g/dL (6.4-8.2); Sodium Level 140 mmol/L (136-145); Troponin High Sensitivity 4.6 pg/mL (<58.9)
[2022-04-25 21:59] LABS: Bilirubin Direct < 0.1 mg/dL (0-0.2)
[2022-04-25] MEDS ORDERED: SIMETHICONE 80 MG TAB ONE (22:20)
[2022-04-26 04:33] VITALS: BP 125/74; TEMP 98.6; O2SAT 98
--- NOTE | 2022-04-26 13:02 | EKG ---
Test Date: 2022-04-25 Test Time: 18:28:28 Woolen Suiting Shrinker: MB MEASUREMENT RESULTS: Intervals: Rate: 69 PA: 160 QRSD: 82 QT: 370 QTc: 396 [place]: P: 57 PA: 160 QRS: 71 T: 68 INTERPRETIVE STATEMENTS: Normal sinus rhythm Normal ECG Compared to ECG 03/02/2022 09:32:40 No significant changes Electronically Signed On 04-26-22 13:01:58 CDT by Enoc Lala
--- NOTE | 2022-05-07 17:21 | EDPHYS ---
Physician Documentation [facility] Name: Demetria Salazar Age: 56 yrs Sex: Female : 1965 Arrival Date: 04/25/2022 Time: 19:00 Bed 20 Private MD: ED Physician Dwain Bird HPI: 04/25 21:47 This 56 yrs old Female presents to ER via Ambulatory with complaints of Chest Pain. snw 21:47 This 56 yrs old Female presents to ER via Ambulatory with complaints of Chest Pain. snw 21:47 Onset: The symptoms/episode began/occurred acutely, 10am. Associated signs and snw symptoms: Pertinent positives: shortness of breath. Modifying factors: The patient symptoms are alleviated by nothing. The patient has not experienced similar symptoms in the past, pt was recently in ED with biliary colic. The patient has been recently seen at the [facility] Emergency Department, this week. 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 - Social history:: Smoking status: Patient reports the use of cigarette tobacco products, denies chronic smoking, but will smoke occasionally, Reported history of juuling and/or vaping. ROS: 21:46 Constitutional: Negative for fever, chills, and weight loss, Eyes: Negative for injury, snw pain, redness, and discharge, ENT: Negative for injury, pain, and discharge, Neck: Negative for injury, pain, and swelling, Abdomen/GI: Negative for abdominal pain, nausea, vomiting, diarrhea, and constipation, Back: Negative for injury and pain, : Negative for injury, bleeding, discharge, and swelling, MS/Extremity: Negative for injury and deformity, Skin: Negative for injury, rash, and discoloration, Neuro: Negative for headache, weakness, numbness, tingling, and seizure, Psych: Negative for depression, anxiety, suicide ideation, homicidal ideation, and hallucinations. 21:46 Cardiovascular: Positive for chest pain. Exam: 18:30 Constitutional: This is a well developed, well nourished patient who is awake, alert, snw and in no acute distress. Head/Face: Normocephalic, atraumatic. Eyes: Pupils equal round and reactive to light, extra-ocular motions intact. Lids and lashes normal. Conjunctiva and sclera are non-icteric and not injected. Cornea within normal limits. Periorbital areas with no swelling, redness, or edema. ENT: Nares patent. No nasal discharge, no septal abnormalities noted. Tympanic membranes are normal and external auditory canals are clear. Oropharynx with no redness, swelling, or masses, exudates, or evidence of obstruction, uvula midline. Mucous membranes moist. Neck: Trachea midline, no thyromegaly or masses palpated, and no cervical lymphadenopathy. Supple, full range of motion without nuchal rigidity, or vertebral point tenderness. No Meningismus. Chest/axilla: Normal chest wall appearance and motion. Nontender with no deformity. No lesions are appreciated. Cardiovascular: Regular rate and rhythm with a normal S1 and S2. No gallops, murmurs, or rubs. Normal PMI, no JVD. No pulse deficits. Respiratory: Lungs have equal breath sounds bilaterally, clear to auscultation and percussion. No rales, rhonchi or wheezes noted. No increased work of breathing, no retractions or nasal flaring. Abdomen/GI: Soft, non-tender, with normal bowel sounds. No distension or tympany. No guarding or rebound. No evidence of tenderness throughout. Back: No spinal tenderness. No costovertebral tenderness. Full range of motion. Skin: Warm, dry with normal turgor. Normal color with no rashes, no lesions, and no evidence of cellulitis. MS/ Extremity: Pulses equal, no cyanosis. Neurovascular intact. Full, normal range of motion. Neuro: Awake and alert, GCS 15, oriented to person, place, time, and situation. Cranial nerves II-XII grossly intact. Motor strength 5/5 in all extremities. Sensory grossly intact. Cerebellar exam normal. Normal gait. Psych: Awake, alert, with orientation to person, place and time. Behavior, mood, and affect are within normal limits. Vital Signs: 19:21 BP 125 / 74; Pulse 76; Resp 18; Temp 98.6; Pulse Ox 98% ; Weight 72.57 kg; Height 5 ft. mb9 2 in. ; Pain 8/10; 21:35 BP 129 / 87; Pulse 63; Resp 14; Pulse Ox 100% on R/A; Pain 0/10; ll3 19:21 Body Mass Index 29.26 (72.57 kg, 157.48 cm) mb9 19:21 Pain Scale: Adult mb9 21:35 Pain Scale: Adult ll3 MDM: 19:27 Patient medically screened. snw 22:05 Differential diagnosis: viral Infection, bacterial infection, acs, biliary colic. Data snw reviewed: vital signs, nurses notes, lab test result(s), EKG, radiologic studies. Counseling: I had a detailed discussion with the patient and/or guardian regarding: the historical points, exam findings, and any diagnostic results supporting the discharge/admit diagnosis, the presence of at least one elevated blood pressure reading (>120/80) during this emergency department visit, lab results, radiology results, the need for outpatient follow up, to return to the emergency department if symptoms worsen or persist or if there are any questions or concerns that arise at home, smoking cessation. Special discussion: Based on the patient's history, exam, and Dx evaluation, there is no indication for emergent intervention or inpatient Tx. It is understood by the patient/guardian that if the Sx's persist or worsen they need to return immediately for re-evaluation. Based on the patient's Hx, exam, and Dx evaluation, there is no indication for emergent surgery or inpatient Tx. It is understood by the patient/guardian that if the Sx's persist or worsen they need to return immediately for re-evaluation. Based on the history and exam findings, there is no indication for further emergent testing or inpatient evaluation. I discussed with the patient/guardian the need to see the supervisor loading for further evaluation of the symptoms. I discussed with the patient/guardian the need to see the staff development educator for further evaluation of the symptoms. I discussed with the patient/guardian the need to see the primary care provider for further evaluation of the symptoms. 04/25 19:26 Order name: Basic Metabolic Panel; Complete Time: 22:05 snw 04/25 19:26 Order name: CBC with Diff; Complete Time: 21:57 snw 04/25 19:26 Order name: LFT's; Complete Time: 22:05 snw 04/25 19:26 Order name: Troponin HS; Complete Time: 22:05 snw 04/25 19:26 Order name: Lipase; Complete Time: 22:05 snw 04/25 19:26 Order name: XRAY Chest (1 view); Complete Time: 21:54 snw 04/25 19:26 Order name: EKG; Complete Time: 19:27 snw 04/25 19:23 Order name: EKG - Nurse/Tech; Complete Time: 19:28 mb9 04/25 19:26 Order name: Cardiac monitoring; Complete Time: 21:20 snw 04/25 19:26 Order name: EKG - Nurse/Tech; Complete Time: 21:20 snw 04/25 19:26 Order name: IV Saline Lock; Complete Time: 21:33 snw 04/25 19:26 Order name: Labs collected and sent; Complete Time: 21:33 snw 04/25 19:26 Order name: O2 Per Protocol; Complete Time: 21:20 snw 04/25 19:26 Order name: O2 Sat Monitoring; Complete Time: 21:20 snw EC:30 Rate is 69 beats/min. Rhythm is regular. QRS [place] is Normal. [place] interval is normal. QRS snw interval is normal. QT interval is normal. Clinical impression: Normal ECG. Administered Medications: 22:17 Drug: Simethicone PO 240 mg Route: PO; ll3 Disposition Summary: 04/25/22 22:07 Discharge Ordered Location: Home snw Condition: Stable snw Diagnosis - Chest pain, unspecified snw Followup: snw - With: Emergency Department - When: As needed - Reason: Worsening of condition Followup: snw - With: Private Physician - When: 2 - 3 days - Reason: Recheck today's complaints, Continuance of care, Re-evaluation by your physician Discharge Instructions: - Discharge Summary Sheet snw - Nonspecific Chest Pain, Adult snw - Gastroesophageal Reflux Disease, Adult snw - How to Take Your Blood Pressure, Twkm-dt-Inio snw - Aspirin and Your Heart snw - Form - Blood Pressure Record Sheet snw Forms: - Medication Reconciliation Form snw - Thank You Letter snw - Antibiotic Education snw - Prescription Opioid Use snw Signatures: Dispatcher [employer] EDOK Martha Haskins FNP-C INSTRUCTOR WASTEWATER [employer]MENT [employer]ANT-Csnw Romy Guevara, RN RN ll3 Ej, Gita Haley, RN RN mb9
--- NOTE | 2022-05-07 17:21 | ER ---
Nurse's Notes [facility] Name: Demetria Salazar Age: 56 yrs Sex: Female : 1965 Arrival Date: 04/25/2022 Time: 19:00 Bed 20 Private MD: Diagnosis: Chest pain, unspecified Presentation: 04/25 19:21 Chief complaint: Patient states: "I started having chest pain around 10am this morning mb9 on my left side that is stabbing. I feel short of breath as well". Coronavirus screen: Vaccine status: Patient reports being unvaccinated. Ebola Screen: No symptoms or risks identified at this time. Initial Sepsis Screen: Does the patient meet any 2 criteria? No. Patient's initial sepsis screen is negative. Does the patient have a suspected source of infection? No. Patient's initial sepsis screen is negative. Risk Assessment: Do you want to hurt yourself or someone else? Patient reports no desire to harm self or others. Onset of symptoms was April 25, 2022. 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 - Social history:: Smoking status: Patient reports the use of cigarette tobacco products, denies chronic smoking, but will smoke occasionally, Reported history of juuling and/or vaping. Screenin:57 [facility] ED Fall Risk Assessment (Adult) History of falling in the last 3 months, ll3 including since admission No falls in past 3 months (0 pts) Confusion or Disorientation No (0 pts) Intoxicated or Sedated No (0 pts) Impaired Gait No (0 pts) Mobility Assist Device Used No (0 pt) Altered Elimination No (0 pt) Score/Fall Risk Level 0 - 2 = Low Risk Oriented to surroundings, Maintained a safe environment, Educated pt \\T\\ family on fall prevention, incl call for assistance when getting out of bed. Abuse screen: Denies threats or abuse. Denies injuries from another. Nutritional screening: No deficits noted. Tuberculosis screening: No symptoms or risk factors identified. Assessment: 21:19 Reassessment: pt brought back to ER room. mb9 21:33 General: Appears comfortable, Behavior is calm, cooperative. Pain: Denies pain. Pain: ll3 Pain began. Neuro: Level of Consciousness is awake, alert, obeys commands, Oriented to person, place, time, situation. Cardiovascular: Chest pain States had chest pain this morning. Respiratory: Respiratory effort is even, unlabored, Respiratory pattern is regular, symmetrical. Derm: Skin is pink, warm \\T\\ dry. Vital Signs: 19:21 BP 125 / 74; Pulse 76; Resp 18; Temp 98.6; Pulse Ox 98% ; Weight 72.57 kg; Height 5 ft. mb9 2 in. ; Pain 8/10; 21:35 BP 129 / 87; Pulse 63; Resp 14; Pulse Ox 100% on R/A; Pain 0/10; ll3 19:21 Body Mass Index 29.26 (72.57 kg, 157.48 cm) mb9 19:21 Pain Scale: Adult mb9 21:35 Pain Scale: Adult ll3 ED Course: 19:00 Patient arrived in ED. am2 19:12 Martha Haskins FNP-C is [facility]. snw 19:12 Dwain Bird MD is Attending Physician. snw 19:22 Triage completed. mb9 19:23 Arm band placed on. mb9 19:28 EKG done, reviewed by Dwain Bird MD. mb9 21:19 Bed in low position. Call light in reach. Side rails up X 1. Client placed on mb9 continuous cardiac and pulse oximetry monitoring. NIBP monitoring applied. ekg monitor on. 21:33 Initial lab(s) drawn, by me, sent to lab. Inserted saline lock: 20 gauge in right ll3 antecubital area, using aseptic technique. Blood collected. 21:41 XRAY Chest (1 view) In Process Unspecified. EDMS 22:58 No provider procedures requiring assistance completed. IV discontinued, intact, ll3 bleeding controlled, No redness/swelling at site. Pressure dressing applied. Patient maintains SpO2 saturation greater than 95% on room air. Administered Medications: 22:17 Drug: Simethicone PO 240 mg Route: PO; ll3 Medication: 21:19 VIS not applicable for this client. mb9 Outcome: 22:07 Discharge ordered by . snw 22:58 Discharged to home ambulatory, with family. ll3 22:58 Condition: stable 22:58 Discharge instructions given to patient, Instructed on discharge instructions, follow up and referral plans. Demonstrated understanding of instructions, follow-up care. 22:58 Patient left the ED. 3 Signatures: Dispatcher [employer] EDMS Martha Haskins, ECONOMICS ANALYST-C ECONOMICS ANALYST-Csnw Bibiana Can [place], RN RN ll3 Gita Pagan RN RN mb9
== END 2022-04-25 22:58 | disposition home or self-care (01) ==
LOC: ER 18:58
DX: R07.9 Chest pain, unspecified (principal); R06.02 Shortness of breath; F17.210 Nicotine dependence, cigarettes, uncomplicated; Z88.5 Allergy status to narcotic agent; Z88.6 Allergy status to analgesic agent
CPT/HCPCS: 36415; 71045; 80048; 80076; 83690; 84484; 85025; 93005; 99285

== ENCOUNTER 2022-09-27 20:13 | Emergency (ER) | payer OTHER ==
--- OUTSIDE RECORDS SUMMARY | 2022-09-27 20:23 | XMS REPORT | Continuity of Care Document ---
:1965 Author Organization [facility] t Address [address] [place] [id number] Care Team Providers Name Role Phone Unavailable Unavailable Unavailable Problems This patient has no known problems. Allergies, Adverse Reactions, Alerts This patient has no known allergies or adverse reactions. Medications This patient has no known medications. Procedures This patient has no known procedures. Results Test Description Test Time Test Comments Results Result Comments Source CULTURE, URINE 2021-09-07 SPECIMEN NUMBER: 11:[id number] CULTURE, URINE SPECIMEN NUMBER: [id number] SPECIMEN COMMENT: URINE SOURCE: URINE REPORT STATUS: [...] Cervical/Endocervical 8001) SLIDES: (test code = 1 8016) LMP: (test code = 02/14/2013 8021) SPECIMEN ADEQUACY: (NOTE) Satisfac tory for (test code = 22815) evaluati on. Endocervical cells/transform ation zone component not i dentified. INTERPRETATION: NILM/NO EPITH. ABNORMALITY;SEE (test code = 72117) BELOW -------- NEGATIVE FOR INTRAEPITHE LIAL LESION OR MALIGNANCY ( NILM) -- RADIATION CONTROL WORKER: CONSTANZA Sal (ASCP) (test code = 8101) LOCATION: (test code (NOTE) Specime ns processed and = 24979) [facility], [address] [place] [address], Phone: , CLIA: [id number] CPT: (test code = (NOTE) 95553 UNLE SS OTHERWISE 8140) INDICATED, COMP UTER [...] as applicable. HPV HIGH RISK WITH GENOTYPE, [id number] 17:39:19 Test Item Value Reference Range Interpretation Comments HPV HIGH RISK INTERP NEGATIVE NEGATIVE (test code = 55532) HPV 16 (test code = NEGATIVE 39005) HPV 18 (test code = NEGATIVE 42870) HPV, HR, OTHER NEGATIVE Testing meth odology is GENOTYPES (test code real-ti me PCR utilizing = 70663) hydrolysis prob es with the [employer] 4800 system. The chata t individually de [...] OTHERWISE INDIC ATED, ALL TESTING PERFORM [facility], [facility]. [address] [place] [address] LABORATORY DIRE CTOR: REBECA ALEX M.D. CLIA NUMBER [id number] [facility] [place] [place]. [id number] VAGINAL PATHOGENS DNA [id number] 15:53:00 Test Item Value Reference Range Interpretation Comments ALTA SPECIES (test NEGATIVE NEGATIVE code = 76058) G. VAGINALIS (test NEGATIVE NEGATIVE code = 67465) T. VAGINALIS (test NEGATIVE NEGATIVE UNLESS O THERWISE code = 85174) INDICATED, ALL TESTING PERFORMED [facility] PATHOLOGY LABOR [facility], [facility]. [address], [place] [address] LABORATORY DIRE CTOR: REBECA ALEX M.D. CLIA NUMBER [id number] [facility] [place] [place] [id number]
[2022-09-27] MEDS ORDERED: PROMETHAZINE 25 MG TABLET ONE (20:56)
[2022-09-27] MEDS ORDERED: HYDROCODONE/APAP 10/325 TAB ONE (20:56)
[2022-09-27] MEDS ORDERED: CYCLOBENZAPRINE 10 MG TAB ONE (20:56)
[2022-09-27] MEDS ORDERED: KETOROLAC 30 MG/ML INJ ONE (20:57)
--- NOTE | 2022-09-27 21:59 | ER ---
Nurse's Notes [facility] Name: Demetria Salazar Age: 56 yrs Sex: Female : 1965 Arrival Date: 09/27/2022 Time: 20:13 Bed IW1 Private MD: Diagnosis: Low back pain;Lumbar muscular sprain acute initial encounter Presentation: 09/27 20:34 Chief complaint: Patient states: I've been having back spasms for the last day and a mb9 half. Coronavirus screen: Vaccine status: Patient reports being unvaccinated. Client denies travel out of the [place] in the last 14 days. At this time, the client does not indicate any symptoms associated with coronavirus-19. Ebola Screen: Patient negative for fever greater than or equal to 101.5 degrees Fahrenheit, and additional compatible Ebola Virus Disease symptoms Patient denies exposure to infectious person. Patient denies travel to an Ebola-affected area in the 21 days before illness onset. No symptoms or risks identified at this time. Initial Sepsis Screen: Does the patient meet any 2 criteria? No. Patient's initial sepsis screen is negative. Does the patient have a suspected source of infection? No. Patient's initial sepsis screen is negative. Risk Assessment: Do you want to hurt yourself or someone else? Patient reports no desire to harm self or others. Onset of symptoms was September 26, 2022. Care prior to arrival: None. Activity prior to arrival: None. 20:34 Method Of Arrival: Ambulatory mb9 20:34 Acuity: EBONY 3 mb9 Triage Assessment: 20:37 General: Appears in no apparent distress. uncomfortable, Behavior is calm, cooperative, mb9 appropriate for age. Pain: Complains of pain in left low back Pain does not radiate. Pain currently is 8 out of 10 on a pain scale. Quality of pain is described as spasms. EENT: No deficits noted. No signs and/or symptoms were reported regarding the EENT system. Neuro: Level of Consciousness is awake, alert, obeys commands, Oriented to person, place, time, situation, Appropriate for age. Cardiovascular: No deficits noted. Respiratory: Airway is patent Respiratory effort is even, unlabored, Respiratory pattern is regular, symmetrical. GI: No deficits noted. No signs and/or symptoms were reported involving the gastrointestinal system. : No deficits noted. No signs and/or symptoms were reported regarding the genitourinary system. Derm: No deficits noted. No signs and/or symptoms reported regarding the dermatologic system. Musculoskeletal: Circulation, motion, and sensation intact. Reports pain in back. 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 - Social history:: Smoking status: Patient reports the use of cigarette tobacco products, 2 a day. - Family history:: not pertinent. Screenin:06 [facility] ED Fall Risk Assessment (Adult) History of falling in the last 3 months, mb9 including since admission No falls in past 3 months (0 pts) Confusion or Disorientation No (0 pts) Intoxicated or Sedated No (0 pts) Impaired Gait No (0 pts) Mobility Assist Device Used No (0 pt) Altered Elimination No (0 pt) Score/Fall Risk Level 0 - 2 = Low Risk Oriented to surroundings, Maintained a safe environment, Educated pt \T\ family on fall prevention, incl call for assistance when getting out of bed. Abuse screen: Denies threats or abuse. Nutritional screening: No deficits noted. Tuberculosis screening: No symptoms or risk factors identified. Assessment: 22:06 Reassessment: Patient and/or family updated on plan of care and expected duration. Pain mb9 level reassessed. Patient is alert, oriented x 3, equal unlabored respirations, skin warm/dry/pink. Patient states feeling better. Patient states symptoms have improved. Vital Signs: 20:34 BP 122 / 68; Pulse 78; Resp 18; Temp 98.1; Pulse Ox 99% ; Weight 72.57 kg; Height 5 ft. mb9 2 in. ; Pain 8/10; 20:34 Body Mass Index 29.26 (72.57 kg, 157.48 cm) mb9 20:34 Pain Scale: Adult mb9 ED Course: 20:17 Patient arrived in ED. ag3 20:20 Shivam Ronquillo MD is Attending Physician. sp4 20:37 Triage completed. mb9 20:39 Arm band placed on left wrist. mb9 22:06 No provider procedures requiring assistance completed. Patient did not have IV access mb9 during this emergency room visit. Administered Medications: 20:50 Drug: [place] PO 10 mg-325 mg 1 tabs Route: PO; mb9 21:55 Follow up: Response: No adverse reaction; Marked relief of symptoms; Pain is decreased vc1 20:50 Drug: Ketorolac IM 60 mg Route: IM; Site: right gluteus; mb9 21:55 Follow up: Response: No adverse reaction; Pain is decreased vc1 20:50 Drug: Cyclobenzaprine PO 10 mg Route: PO; mb9 21:55 Follow up: Response: No adverse reaction; Pain is decreased vc1 20:50 Drug: Promethazine PO 25 mg Route: PO; mb9 21:55 Follow up: Response: Marked relief of symptoms; Pain is decreased vc1 Medication: 20:40 VIS not applicable for this client. mb9 Outcome: 21:58 Discharge ordered by . sp4 22:06 Discharged to home ambulatory. mb9 22:06 Condition: stable 22:06 Discharge instructions given to patient, Instructed on discharge instructions, follow up and referral plans. Demonstrated understanding of instructions, follow-up care, medications, Prescriptions given X 2. 22:07 Patient left the ED. mb9 Signatures: China Feliciano ag3 Charlotte Choi RN RN vc1 Gita Pagan RN RN mb9 Shivam Ronquillo MD MD sp4
--- NOTE | 2022-09-27 21:59 | EDPHYS ---
Physician Documentation [facility] Name: Demetria Salazar Age: 56 yrs Sex: Female : 1965 Arrival Date: 09/27/2022 Time: 20:13 Bed IW1 Private MD: ED Physician Shivam Ronquillo HPI: 09/27 20:39 This 56 yrs old Female presents to ER via Ambulatory with complaints of Back sp4 Pain. 20:39 This is a pleasant 56-year-old female with history of prior extensive newberry at the age sp4 of 8, presents with a cute onset of left lower back pain just to the side of the spine, which described as spasmodic back pain starting yesterday evening. Patient did not take any medicines. Patient denied any other symptoms except for pain. 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 - Social history:: Smoking status: Patient reports the use of cigarette tobacco products, 2 a day. - Family history:: not pertinent. ROS: 21:06 Constitutional: Negative for fever, chills, and weight loss, Back: Negative for injury sp4 positive for spasmodic left lower back pain 21:06 All other systems are negative. Exam: 21:06 Constitutional: This is a well developed, well nourished patient who is awake, alert, sp4 and in no acute distress. Head/Face: Normocephalic, atraumatic. Eyes: Pupils equal round and reactive to light, extra-ocular motions intact. Lids and lashes normal. Conjunctiva and sclera are not injected. Cornea within normal limits. Periorbital areas with no swelling, redness, or edema. ENT: Nares patent. No nasal discharge, no septal abnormalities noted. Tympanic membranes are normal and external auditory canals are clear. Oropharynx with no redness, swelling, or masses, exudates, or evidence of obstruction, uvula midline. Mucous membranes moist. Neck: Trachea midline, no thyromegaly or masses palpated, and no cervical lymphadenopathy. Supple, full range of motion without nuchal rigidity, or vertebral point tenderness. Chest/axilla: Normal chest wall appearance and motion. Nontender with no deformity. No lesions are appreciated. Cardiovascular: Regular rate and rhythm with a normal S1 and S2. No gallops, murmurs, or rubs. Normal PMI, no JVD. No pulse deficits. Respiratory: Lungs have equal breath sounds bilaterally, clear to auscultation and percussion. No rales, rhonchi or wheezes noted. No increased work of breathing, no retractions or nasal flaring. Abdomen/GI: Soft, non-tender, with normal bowel sounds. No distension or tympany. No guarding or rebound. No evidence of tenderness throughout. Back: No spinal tenderness. No costovertebral tenderness. There is a left lower erector spinae tenderness. Skin: Warm, dry with normal turgor. Normal color with no rashes, no lesions, and no evidence of cellulitis. MS/ Extremity: Pulses equal, no cyanosis. Neurovascular intact. Full, normal range of motion. Neuro: Awake and alert, GCS 15, oriented to person, place, time, and situation. Cranial nerves II-XII grossly intact. Motor strength 5/5 in all extremities. Sensory grossly intact. Psych: Awake, alert, with orientation to person, place and time. Behavior, mood, and affect are within normal limits Vital Signs: 20:34 BP 122 / 68; Pulse 78; Resp 18; Temp 98.1; Pulse Ox 99% ; Weight 72.57 kg; Height 5 ft. mb9 2 in. ; Pain 8/10; 20:34 Body Mass Index 29.26 (72.57 kg, 157.48 cm) mb9 20:34 Pain Scale: Adult mb9 MDM: 20:44 Patient medically screened. sp4 21:06 Data reviewed: vital signs, nurses notes, old medical records. sp4 21:54 Differential diagnosis: Fatigue Fracture Myeloma Obesity Scoliosis. ED course: Patient sp4 has no lower extremity weakness or numbness, normal neurologic exam, normal strength normal gait. Pain has completely resolved after medications in the ER. Patient is stable for discharge home with Naprosyn and Flexeril.. Administered Medications: 20:50 Drug: [place] PO 10 mg-325 mg 1 tabs Route: PO; mb9 21:55 Follow up: Response: No adverse reaction; Marked relief of symptoms; Pain is decreased vc1 20:50 Drug: Ketorolac IM 60 mg Route: IM; Site: right gluteus; mb9 21:55 Follow up: Response: No adverse reaction; Pain is decreased vc1 20:50 Drug: Cyclobenzaprine PO 10 mg Route: PO; mb9 21:55 Follow up: Response: No adverse reaction; Pain is decreased vc1 20:50 Drug: Promethazine PO 25 mg Route: PO; mb9 21:55 Follow up: Response: Marked relief of symptoms; Pain is decreased vc1 Disposition Summary: 09/27/22 21:58 Discharge Ordered Location: Home sp4 Problem: new sp4 Symptoms: have improved sp4 Condition: Stable sp4 Diagnosis - Low back pain sp4 - Lumbar muscular sprain acute initial encounter sp4 Followup: sp4 - With: Private Physician - When: 5 - 6 days - Reason: Recheck today's complaints Discharge Instructions: - Discharge Summary Sheet sp4 - Acute Back Pain, Adult sp4 Forms: - Patient Portal Instructions sp4 Prescriptions: - naproxen 500 mg Oral tablet - take 1 tablet by ORAL route every 12 hours 1 p.o. as needed pain every 12 sp4 hours.; 30 tablet; Refills: 0, Product Selection Permitted - Cyclobenzaprine 10 mg Oral Tablet - take 1 tablet by ORAL route every 8 hours As needed; 30 tablet; Refills: 0, sp4 Product Selection Permitted Signatures: Gita Pagan RN RN mb9 Shivam Ronquillo MD MD sp4 Charlotte Choi RN vc1
[2022-09-27 22:11] VITALS: BP 122/68; TEMP 98.1; O2SAT 99
== END 2022-09-27 22:07 | disposition home or self-care (01) ==
LOC: ER 20:13
DX: S39.012A Strain of muscle, fascia and tendon of lower back, initial encounter (principal); Z88.5 Allergy status to narcotic agent; Z88.8 Allergy status to other drugs, medicaments and biological substances; Z72.0 Tobacco use
CPT/HCPCS: 96372; 99284; Q0169

== ENCOUNTER 2022-12-02 19:21 | Emergency (ER) | payer OTHER, SELFPAY ==
--- OUTSIDE RECORDS SUMMARY | 2022-12-02 21:01 | XMS REPORT | Continuity of Care Document ---
:1965 Author Organization [facility] t Address [address] [place] [address] [address] [place] [address] Care Team Providers Name Role Phone Unavailable Unavailable Unavailable Problems This patient has no known problems. Allergies, Adverse Reactions, Alerts This patient has no known allergies or adverse reactions. Medications This patient has no known medications. Procedures This patient has no known procedures. Encounters Start End Encounter Admission Attending Care Care Encounter Source Date/Time Date/Time Type Type Clinicians Facility Department ID 2022-12-02 2022-12-02 Outpatient [facility] [id number] Ricardo 09:43:11 09:43:11 [id number] [facility] 2022-11-30 2022-11-30 Outpatient [facility] [id number] Ricardo 17:35:51 17:35:51 [id number] [facility] 2022-10-29 2022-10-29 Outpatient [facility] [id number] Ricardo 14:09:39 14:09:39 [id number] [facility] 2022-10-01 2022-10-01 Outpatient [facility] [id number] Ricardo 14:22:35 14:22:35 [id number] [facility] Results Test Description Test Time Test Comments Results Result Comments Source CULTURE, URINE 2021-09-07 SPECIMEN NUMBER: [id number] CULTURE, URINE SPECIMEN NUMBER: [id number] SPECIMEN COMMENT: URINE SOURCE: URINE REPORT STATUS: [...] Cervical/Endocervical 8001) SLIDES: (test code = 1 8011) LMP: (test code = 02/14/2013 8021) SPECIMEN ADEQUACY: (NOTE) Hattie cuellar for (test code = 96845) evaluati on. Endocervical cells/transform ation zone component not i dentified. INTERPRETATION: NILM/NO EPITH. ABNORMALITY;SEE (test code = 74170) BELOW -------- NEGATIVE FOR INTRAEPITHE LIAL LESION OR MALIGNANCY ( NILM) -- DIESEL DINKEY OPERATOR: CONSTANZA Sal (ASCP) (test code = 8101) LOCATION: (test code (NOTE) Specime ns processed and = 53554) [facility] [address] [place] [address], Phone: , CLIA: [id number] CPT: (test code = (NOTE) 35052 UNLE SS OTHERWISE 8140) INDICATED, COMP UTER [...] as applicable. HPV HIGH RISK WITH GENOTYPE, [id number] 17:39:19 Test Item Value Reference Range Interpretation Comments HPV HIGH RISK INTERP NEGATIVE NEGATIVE (test code = 63329) HPV 16 (test code = NEGATIVE 85387) HPV 18 (test code = NEGATIVE 04076) HPV, HR, OTHER NEGATIVE Testing meth odology is GENOTYPES (test code real-ti me PCR utilizing = 68578) hydrolysis prob es with the Undertone[employer] 4800 system. The chata t individually de [...] OTHERWISE INDIC ATED, ALL TESTING PERFORM [facility] [place]. [address] [place] [address] LABORATORY DIRE CTOR: REBECA ALEX M.D. CLIA NUMBER [id number] [facility] [address] VAGINAL PATHOGENS DNA [id number] 15:53:00 Test Item Value Reference Range Interpretation Comments ALTA SPECIES (test NEGATIVE NEGATIVE code = ) G. VAGINALIS (test NEGATIVE NEGATIVE code = ) T. VAGINALIS (test NEGATIVE NEGATIVE UNLESS O THERWISE code = ) INDICATED, ALL TESTING PERFORMED ATCLI NICAL PATHOLOGY LABOR [facility] [address] [place], [place] [address] LABORATORY DIRE CTOR: REBECA ALEX M.D. CLIA NUMBER [id number] [facility] ON [address].
--- NOTE | 2022-12-02 21:48 | EDPHYS ---
Physician Documentation [facility] Name: Demetria Salazar Age: 57 yrs Sex: Female : 1965 Arrival Date: 12/02/2022 Time: 19:21 Bed DIS3 Private MD: ED Physician Suresh Mae HPI: 12/02 21:49 This 57 yrs old Female presents to ER via Ambulatory with complaints of does ec2 not feel herself. 20:13 Patient arrives today due to concern for URI signs and symptoms. Patient has been ec2 having 1 days of symptoms. Patient's been having congestion as well as sore throat and body aches as well as decreased p.o. intake and poor appetite. Patient reports no fevers or chills, no nausea or vomiting, no diarrhea, no urinary symptoms. Patient reports that her was recently sick with similar Symptoms and was diagnosed with COVID.. Historical: - Allergies: 19:44 Aspirin; lg3 19:44 Codeine; lg3 - Home Meds: 19:44 levothyroxine oral [Active]; phentermine oral [Active]; lg3 - PMHx: 19:44 Hypothyroidism; lg3 - PSHx: 19:44 section; lg3 - Immunization history:: Adult Immunizations up to date, Client reports having NOT received the Covid vaccine. Flu vaccine is not up to date. - Social history:: Smoking status: Patient reports the use of cigarette tobacco products, smokes one-half pack cigarettes per day, Patient/guardian denies using alcohol, street drugs. ROS: 20:13 Constitutional: URI s/s ec2 Exam: 20:13 Constitutional: GEN: NAD Head: atraumatic oropharynx: Mouth is clear, no exudates, ec2 minimal pharyngeal erythema, no tonsillar swelling, no uvula swelling. Eyes: EOMI Ears: External ears are normal. CV: regular rate LUNGS: no respiratory distress ABD: non-distended, soft, nontender, no guarding, nonrigid SKIN: no evidence of rashes MSK: no evidence of trauma NEURO: moves all extremities equally Vital Signs: 19:42 BP 123 / 69; Pulse 81; Resp 16 S; Temp 98.3(O); Pulse Ox 99% on R/A; Weight 74.84 kg lg3 (R); Height 5 ft. 2 in. (R); 21:58 BP 129 / 77; Pulse 73; Resp 16 S; Pulse Ox 100% on R/A; Pain 7/10; km8 19:42 Body Mass Index 30.18 (74.84 kg, 157.48 cm) lg3 21:58 Pain Scale: Adult km8 MDM: 20:05 Patient medically screened. ec2 20:13 ED course: Patient arrives today due to concern for URI signs and symptoms. Examination ec2 remarkable for well-appearing nontoxic dividual was in no acute distress. Will obtain strep, flu, COVID swabs. Currently considering viral process, strep pharyngitis, low suspicion for process such as meningitis, patient otherwise systemically well-appearing without any vital sign abnormalities, accordingly will defer any lab work at this time.. 21:47 ED course: Strep testing negative. On reassessment patient well-appearing in no acute ec2 distress, will discharge patient home, return precautions given.. 21:49 Data reviewed: vital signs. ec2 12/02 19:48 Order name: COVID-19 SARS RT PCR; Complete Time: 20:40 lg3 12/02 19:48 Order name: Flu; Complete Time: 20:40 3 12/02 20:13 Order name: Strep ec2 12/02 21:53 Order name: Throat Culture EDMS Administered Medications: No medications were administered Disposition Summary: 12/02/22 21:47 Discharge Ordered Notes: Location: Home ec2 Condition: Stable ec2 Diagnosis - Viral Illness ec2 Discharge Instructions: - Discharge Summary Sheet ec2 - Viral Illness, Adult ec2 Forms: - Work release form ec2 - Medication Reconciliation Form ec2 - Thank You Letter ec2 - Antibiotic Education ec2 - Prescription Opioid Use ec2 - Patient Portal Instructions ec2 - Leadership Thank You Letter ec2 Signatures: Dispatcher [employer] Arleen Arcos RN RN 3 Suresh Mae MD MD ec2
--- NOTE | 2022-12-02 21:48 | ER ---
Nurse's Notes [facility] Name: Demetria Salazar Age: 57 yrs Sex: Female : 1965 Arrival Date: 12/02/2022 Time: 19:21 Bed DIS3 Private MD: Diagnosis: Viral Illness Presentation: 12/02 19:42 Chief complaint: Patient states: flu like symptoms beginning this morning. lg3 covid + last week. denies fever. Coronavirus screen: Client denies travel out of the [place] in the last 14 days. Client presents with at least one sign or symptom that may indicate coronavirus-19. Standard/surgical mask placed on the client. Ebola Screen: No symptoms or risks identified at this time. Initial Sepsis Screen: Does the patient meet any 2 criteria? No. Patient's initial sepsis screen is negative. Does the patient have a suspected source of infection? No. Patient's initial sepsis screen is negative. Risk Assessment: Do you want to hurt yourself or someone else? Patient reports no desire to harm self or others. Onset of symptoms was December 02, 2022. 19:42 Method Of Arrival: Ambulatory lg3 19:42 Acuity: EBONY 4 lg3 Triage Assessment: 19:44 General: Appears in no apparent distress. comfortable, Behavior is calm, cooperative. lg3 Pain: Complains of pain in generealized body aches. EENT: No deficits noted. No signs and/or symptoms were reported regarding the EENT system. Reports nasal congestion nasal discharge. Neuro: No deficits noted. Iraheta Agitation-Sedation Scale (RASS): 0 - Alert and Calm Level of Consciousness is awake, alert, obeys commands, Oriented to person, place, time, situation. Cardiovascular: No deficits noted. Denies chest pain, shortness of breath. Respiratory: No deficits noted. Reports cough that is Airway is patent Respiratory effort is even, unlabored, Respiratory pattern is regular, symmetrical. GI: No deficits noted. No signs and/or symptoms were reported involving the gastrointestinal system. : No deficits noted. No signs and/or symptoms were reported regarding the genitourinary system. Derm: No deficits noted. No signs and/or symptoms reported regarding the dermatologic system. Skin is intact, is healthy with good turgor, Skin is dry, Skin is normal, Skin temperature is warm. Musculoskeletal: No deficits noted. No signs and/or symptoms reported regarding the musculoskeletal system. Circulation, motion, and sensation intact. Range of motion: intact in all extremities. Historical: - Allergies: 19:44 Aspirin; lg3 19:44 Codeine; lg3 - Home Meds: 19:44 levothyroxine oral [Active]; phentermine oral [Active]; lg3 - PMHx: 19:44 Hypothyroidism; lg3 - PSHx: 19:44 section; lg3 - Immunization history:: Adult Immunizations up to date, Client reports having NOT received the Covid vaccine. Flu vaccine is not up to date. - Social history:: Smoking status: Patient reports the use of cigarette tobacco products, smokes one-half pack cigarettes per day, Patient/guardian denies using alcohol, street drugs. Screenin:49 [facility] ED Fall Risk Assessment (Adult) History of falling in the last 3 months, km8 including since admission No falls in past 3 months (0 pts) Confusion or Disorientation No (0 pts) Intoxicated or Sedated No (0 pts) Impaired Gait No (0 pts) Mobility Assist Device Used No (0 pt) Altered Elimination No (0 pt) Score/Fall Risk Level 0 - 2 = Low Risk Oriented to surroundings, Maintained a safe environment, Educated pt \T\ family on fall prevention, incl call for assistance when getting out of bed, Assessed \T\ reinforced patient's understanding of fall precautions. 21:49 Abuse screen: Denies threats or abuse. Denies injuries from another. Nutritional km8 screening: No deficits noted. Tuberculosis screening: No symptoms or risk factors identified. Assessment: 21:49 General: Appears in no apparent distress. comfortable, Behavior is calm, cooperative, km8 appropriate for age. Pain: Complains of pain in generalized body aches Pain currently is 7 out of 10 on a pain scale. Pain began suddenly. Neuro: No deficits noted. Iraheta Agitation-Sedation Scale (RASS): 0 - Alert and Calm Level of Consciousness is awake, alert, obeys commands, Oriented to person, place, time, situation. Cardiovascular: No deficits noted. Denies chest pain, shortness of breath, Capillary refill < 3 seconds Patient's skin is warm and dry. Respiratory: No deficits noted. Airway is patent Respiratory effort is even, unlabored, Respiratory pattern is regular, symmetrical, Denies shortness of breath. GI: No deficits noted. No signs and/or symptoms were reported involving the gastrointestinal system. : No deficits noted. No signs and/or symptoms were reported regarding the genitourinary system. EENT: No deficits noted. Reports nasal congestion nasal discharge. Derm: No deficits noted. No signs and/or symptoms reported regarding the dermatologic system. Skin is intact, is healthy with good turgor, Skin is dry, Skin is Skin temperature is warm. Musculoskeletal: No deficits noted. No signs and/or symptoms reported regarding the musculoskeletal system. Circulation, motion, and sensation intact. Range of motion: intact in all extremities. Vital Signs: 19:42 BP 123 / 69; Pulse 81; Resp 16 S; Temp 98.3(O); Pulse Ox 99% on R/A; Weight 74.84 kg lg3 (R); Height 5 ft. 2 in. (R); 21:58 BP 129 / 77; Pulse 73; Resp 16 S; Pulse Ox 100% on R/A; Pain 7/10; km8 19:42 Body Mass Index 30.18 (74.84 kg, 157.48 cm) lg3 21:58 Pain Scale: Adult km8 ED Course: 19:24 Patient arrived in ED. ag3 19:44 Triage completed. lg3 19:44 Arm band placed on right wrist. lg3 19:48 Flu Sent. lg3 19:48 COVID-19 SARS RT PCR Sent. lg3 20:05 Suresh Mae MD is Attending Physician. ec2 20:16 Strep Sent. lg3 21:49 Alysha Gilbert, RN is Primary Nurse. km8 21:49 Patient has correct armband on for positive identification. Call light in reach. km8 21:58 No provider procedures requiring assistance completed. Patient did not have IV access km8 during this emergency room visit. Administered Medications: No medications were administered Medication: 21:58 VIS not applicable for this client. km8 Outcome: 21:47 Discharge ordered by . ec2 21:59 Discharged to home ambulatory, with significant other, km8 21:59 Condition: good 21:59 Discharge instructions given to patient, Instructed on discharge instructions, follow up and referral plans. Demonstrated understanding of instructions, follow-up care, 21:59 Patient left the ED. km8 Signatures: China Feliciano Arleen, RN RN lg3 Suresh Mae MD MD ec2 Alysha Gilbert, GOMEZ RN km8
[2022-12-02 22:07] VITALS: TEMP 98.3
[2022-12-02 22:09] VITALS: BP 129/77; O2SAT 100
== END 2022-12-02 21:59 | disposition home or self-care (01) ==
LOC: ER 19:21
DX: B34.9 Viral infection, unspecified (principal)
CPT/HCPCS: 87070; 87081; 87635; 87804; 99283

== ENCOUNTER 2022-12-22 09:04 | Observation (INO) | payer SELFPAY ==
--- OUTSIDE RECORDS SUMMARY | 2022-12-22 09:28 | XMS REPORT | Continuity of Care Document ---
:1965 Author Organization [facility] t Address [address] [place] [address] [address] [place] [address] Care Team Providers Name Role Phone Unavailable [...] Clinicians Facility Department ID 2022-12-02 2022-12-02 Outpatient [facility] [id number] Ricardo 09:43:11 09:43:11 [id number] [facility] 2022-11-30 2022-11-30 Outpatient [facility] [id number] Ricardo 17:35:51 17:35:51 [id number] [facility] 2022-10-29 2022-10-29 Outpatient [facility] [id number] Ricardo 14:09:39 14:09:39 [id number] [facility] 2022-10-01 2022-10-01 Outpatient [facility] [id number]- Ricardo 14:22:35 14:22:35 [id number] [facility] Results Test Description Test Time Test Comments Results Result Comments Source CULTURE, URINE 2021-09-07 SPECIMEN NUMBER: [id number] CULTURE, URINE SPECIMEN NUMBER: [id number] SPECIMEN COMMENT: URINE SOURCE: URINE REPORT STATUS: [...] (NOTE) Hattie cuellar for (test code = 04658) evaluati on. Endocervical cells/transform ation zone component not i dentified. INTERPRETATION: NILM/NO EPITH. ABNORMALITY;SEE (test code = 72576) BELOW -------- NEGATIVE FOR INTRAEPITHE LIAL LESION OR MALIGNANCY ( NILM) -- CLAY MODELER: CONSTANZA aSl (ASCP) (test code = 8101) LOCATION: (test code (NOTE) Specime ns processed and = 14408) [facility] at [facility] [address] [place] [address], Phone: , CLIA: [id number] CPT: (test code = (NOTE) 62743 UNLE SS OTHERWISE 8140) INDICATED, COMP UTER [...] as applicable. HPV HIGH RISK WITH GENOTYPE, [id number] 17:39:19 Test Item Value Reference Range Interpretation Comments HPV HIGH RISK INTERP NEGATIVE NEGATIVE (test code = 80960) HPV 16 (test code = NEGATIVE 23805) HPV 18 (test code = NEGATIVE 80586) HPV, HR, OTHER NEGATIVE Testing meth odology is GENOTYPES (test code real-ti me PCR utilizing = 63595) hydrolysis prob es with the Cyphomaas 4800 system. The chata t individually de [...] [facility] [place] [address] [place] [id number] LABORATORY DIRE CTOR: REBECA ALEX M.D. CLIA NUMBER [id number] [facility] ON [address]. VAGINAL PATHOGENS DNA [id number] 15:53:00 Test Item Value Reference Range Interpretation Comments ALTA SPECIES (test NEGATIVE NEGATIVE code = ) G. VAGINALIS (test NEGATIVE NEGATIVE code = ) T. VAGINALIS (test NEGATIVE NEGATIVE UNLESS O THERWISE code = ) INDICATED, ALL TESTING PERFORMED ATCLI NICAL PATHOLOGY LABOR [facility] [address] [place], [place] [address] LABORATORY DIRE CTOR: REBECA ALEX M.D. CLIA NUMBER [id number] [facility] ON [address].
[2022-12-22] MEDS ORDERED: KETOROLAC 30 MG/ML INJ ONE (09:41)
[2022-12-22] MEDS ORDERED: ONDANSETRON 4 MG/2 ML VIAL ONE ×2 (09:41→14:53)
[2022-12-22] MEDS ORDERED: NA CHLORIDE 0.9% 1,000 ML ONE ×2 (09:42→13:29)
[2022-12-22 10:18] LABS: Specific Gravity 1.008 (1.005-1.030); Urine Bacteria None Seen /HPF (<20); Urine Bilirubin NEGATIVE (Negative); Urine Blood Negative (Negative); Urine Clarity Turbid (Clear); Urine Color Light-Yellow (Yellow); Urine Glucose NEGATIVE (Negative); Urine Protein NEGATIVE (Negative); Urine RBC <5 /HPF (None Seen); Urine Urobilinogen Normal (Normal)
[2022-12-22 10:20] LABS: Absolute Lymphocytes (CBC) 1.8 K/uL (0.7-4.9); Hematocrit 38.7 % (36.0-45.0); Lymphocytes % 24.7 % (15.3-44.8); MCV 90.7 fL (80-100); MPV 7.5 fL (7.6-11.3); Platelets 215 thou/uL (152-406); RBC Red Blood Cell Count 4.26 M/uL (3.86-4.86)
[2022-12-22 10:39] LABS: Albumin 3.4 g/dL (3.4-5.0); Bilirubin Total 0.4 mg/dL (0.2-1.0); Potassium 3.8 mEq/L (3.5-5.1); Protein, Total 6.9 g/dL (6.4-8.2)
--- NOTE | 2022-12-22 11:19 | RAD REPORT ---
EXAM DESCRIPTION: CT - Abdomen Pelvis W Contrast - 12/22/2022 10:42 am CLINICAL HISTORY: ABD PAIN COMPARISON: No comparisons TECHNIQUE: Thin cut axial CT imaging of the abdomen and pelvis was performed following intravenous a dministration of 100 mL Isovue 300. Multiplanar reformats were generated and reviewed. All CT scans are performed using dose optimization technique as appropriate and may include automated exposure control or mA/KV adjustment according to patient size. FINDINGS: No suspicious findings in the lung bases. The liver, spleen, adrenal glands, and pancreas show no suspicious findings. Gallbladder and biliary tree are also without suspicious finding. Symmetric renal function is seen with no hydronephrosis or suspicious renal mass. Distended appendix, with fluid filling and mucosal hyperenhancement. Wall thickening and adjacent fat stranding at the base of the appendix, with limited extension along the adjacent cecal wall. An appe ndicolith is seen along the proximal appendiceal lumen, measuring 7 millimeter. No adjacent fluid col lections or extraluminal gas. Trace free pelvic fluid. No dilated bowel loops or bowel wall thickenin g. No free air, free fluid or inflammatory stranding. No hernia, mass or bulky lymphadenopathy. The u rinary bladder is without significant finding. No suspicious bony findings. IMPRESSION: Findings of acute uncomplicated appendicitis. 7 millimeter appendicolith along the proxi mal appendiceal lumen. The findings were communicated to Jesus Olivia on 12/22/2022 at 11:14 hours.
--- NOTE | 2022-12-22 11:28 | ER ---
Nurse's Notes [facility] Name: Demetria Salazar Age: 57 yrs Sex: Female : 1965 Arrival Date: 12/22/2022 Time: 09:04 Bed 6 Private MD: Diagnosis: Unspecified acute appendicitis;Lower abdominal pain, unspecified Presentation: 12/22 09:15 Chief complaint: Patient states: RLQ pain since last night, +nausea, no vomiting or iw diarrhea. Coronavirus screen: At this time, the client does not indicate any symptoms associated with coronavirus-19. Ebola Screen: Patient negative for fever greater than or equal to 101.5 degrees Fahrenheit, and additional compatible Ebola Virus Disease symptoms Patient denies exposure to infectious person. Patient denies travel to an Ebola-affected area in the 21 days before illness onset. No symptoms or risks identified at this time. Initial Sepsis Screen: Does the patient meet any 2 criteria? No. Patient's initial sepsis screen is negative. Does the patient have a suspected source of infection? No. Patient's initial sepsis screen is negative. Risk Assessment: Do you want to hurt yourself or someone else? Patient reports no desire to harm self or others. Onset of symptoms was December 21, 2022. 09:15 Method Of Arrival: Ambulatory iw 09:15 Acuity: EBONY 3 iw Historical: - Allergies: 09:31 Aspirin; iw 09:31 Codeine; iw - PMHx: 09:31 Hypothyroidism; iw - PSHx: 09:31 section; iw - Immunization history:: Adult Immunizations up to date. - Social history:: Smoking status: . Screenin:46 [facility] ED Fall Risk Assessment (Adult) Score/Fall Risk Level 0 - 2 = Low Risk hb Oriented to surroundings. Abuse screen: Denies threats or abuse. Denies injuries from another. Nutritional screening: No deficits noted. Tuberculosis screening: No symptoms or risk factors identified. Assessment: 09:45 General: Appears in no apparent distress. Behavior is calm, cooperative. Pain: Pain hb currently is 8 out of 10 on a pain scale. Neuro: Level of Consciousness is awake, alert, obeys commands, Oriented to person, place, time, situation. Cardiovascular: Patient's skin is warm and dry. Respiratory: Respiratory effort is even, unlabored, Respiratory pattern is regular, symmetrical. GI: Reports lower abdominal pain, nausea. : No signs and/or symptoms were reported regarding the genitourinary system. EENT: No signs and/or symptoms were reported regarding the EENT system. Derm: Skin is pink, warm \T\ dry. Musculoskeletal: No signs and/or symptoms reported regarding the musculoskeletal system. 10:53 Reassessment: Patient appears in no apparent distress at this time. Patient and/or hb family updated on plan of care and expected duration. Pain level reassessed. Patient is alert, oriented x 3, equal unlabored respirations, skin warm/dry/pink. Vital Signs: 09:16 BP 114 / 81; Pulse 73; Resp 16; Temp 98.4; Pulse Ox 100% on R/A; Pain 8/10; iw 11:52 BP 118 / 71; Pulse 66; Resp 18; Pulse Ox 100% on R/A; ph 13:40 BP 121 / 78; Pulse 68; Resp 18; Temp 98.2; Pulse Ox 99% on R/A; ph 09:16 Pain Scale: Adult iw ED Course: 09:08 Patient arrived in ED. gm2 09:11 Jesus Olivia DO is Attending Physician. ms3 09:16 Triage completed. iw 09:31 Arm band placed on. iw 09:42 CBC with Diff Sent. ds4 09:42 CMP Sent. ds4 09:42 Lipase Sent. ds4 09:42 Inserted saline lock: 22 gauge in right forearm, using aseptic technique. Blood ds4 collected. 09:45 Genoveva Dejesus, RN is Primary Nurse. hb 09:46 Patient has correct armband on for positive identification. Provided Education on: . hb 10:44 CT Abd/Pelvis - IV Contrast Only In Process Unspecified. EDMS 11:27 Moreno Trevino MD is Hospitalizing Provider. ms3 11:52 No provider procedures requiring assistance completed. Patient admitted, IV remains in ph place. Administered Medications: 09:41 Drug: NS 0.9% IV 1000 ml IV at 1 bolus Per protocol; 1000 mL bolus Route: IV; Rate: 1 hb bolus; Site: right forearm; 11:51 Follow up: Response: No adverse reaction; IV Status: Completed infusion; IV Intake: ph 1000ml 09:41 Drug: TORadol - Ketorolac IVP 15 mg IVP once Route: IVP; Site: right forearm; hb 11:51 Follow up: Response: No adverse reaction; Pain is decreased ph 09:41 Drug: Ondansetron IVP 4 mg IVP once; over 2 minutes Route: IVP; Site: right forearm; hb 11:51 Follow up: Response: No adverse reaction; Nausea is decreased ph 11:51 Drug: Piperacillin-Tazobactam IVPB 3.375 grams IVPB once over 60 mins; (mix in NS 100 ph mL) Route: IVPB; Infused Over: 60 mins; Site: right forearm; 12:29 Follow up: Response: No adverse reaction; IV Status: Completed infusion; IV Intake: cm10 100ml 13:26 Drug: morphine IVP or IV 4 mg IVP once over 4 mins Route: IVP; Infused Over: 4 mins; ph Site: right forearm; 13:40 Follow up: Response: No adverse reaction ph Medication: 11:52 VIS not applicable for this client. ph Intake: 11:51 IV: 1000ml; Total: 1000ml. ph 12:29 IV: 100ml; Total: 1100ml. cm10 Outcome: 11:27 Decision to Hospitalize by Provider. ms3 13:41 Admitted to OR accompanied by nurse, via wheelchair, ph 13:41 Condition: stable 13:41 Instructed on the need for admit, 13:41 Patient left the ED. ph Signatures: Dispatcher [employer] Faye Gilliam RN RN iw Swanson, Donovan ds4 Francie Cooper RN RN Genoveva Dejesus RN RN hb Sims, Marcus, DO DO ms3 Kaylan Alarcon RN RN 10 Audelia Schmidt 2
--- NOTE | 2022-12-22 11:28 | EDPHYS ---
Physician Documentation [facility] Name: Demetria Salazar Age: 57 yrs Sex: Female : 1965 Arrival Date: 12/22/2022 Time: 09:04 Bed 6 Private MD: ED Physician Jesus Olivia HPI: 12/22 09:22 This 57 yrs old Female presents to ER via Ambulatory with complaints of Abdominal Pain. sc3 09:22 57-year-old female with past medical history of hypothyroidism presents to [facility] emergency department for right lower quadrant abdominal pain that is rated an 8/10. Patient states the pain radiates to the left side of her abdomen. Patient denies any alleviating or inciting factors. Patient endorses nausea. Patient denies diarrhea, vomiting, fevers, chills, shortness of breath, chest pain. Historical: - Allergies: 09:31 Aspirin; iw 09:31 Codeine; iw - PMHx: 09:31 Hypothyroidism; iw - PSHx: 09:31 section; iw - Immunization history:: Adult Immunizations up to date. - Social history:: Smoking status: . ROS: 09:22 Constitutional: Negative for fever, and chills. Neck: Negative for injury, pain, and ms3 swelling, Cardiovascular: Negative for chest pain, and palpitations. Respiratory: Negative for shortness of breath, cough, wheezing, and pleuritic chest pain, 09:22 Abdomen/GI: Positive for abdominal pain, nausea, 09:22 All other systems are negative, Exam: 09:22 Constitutional: This is a well developed, well nourished patient who is awake, alert, ms3 and in no acute distress. Head/Face: Normocephalic, atraumatic. Neck: Trachea midline, no cervical lymphadenopathy. Supple, full range of motion without nuchal rigidity, or vertebral point tenderness. No Meningismus. Chest/axilla: Normal chest wall appearance and motion. Nontender with no deformity. Cardiovascular: Regular rate and rhythm with a normal S1 and S2. No gallops, murmurs, or rubs. Normal PMI, no JVD. No pulse deficits. Respiratory: Lungs have equal breath sounds bilaterally, clear to auscultation and percussion. No rales, rhonchi or wheezes noted. No increased work of breathing, no retractions or nasal flaring. 09:22 Abdomen/GI: Inspection: abdomen appears normal, Bowel sounds: normal, Palpation: moderate abdominal tenderness, in the right lower quadrant, Vital Signs: 09:16 BP 114 / 81; Pulse 73; Resp 16; Temp 98.4; Pulse Ox 100% on R/A; Pain 8/10; iw 11:52 BP 118 / 71; Pulse 66; Resp 18; Pulse Ox 100% on R/A; ph 13:40 BP 121 / 78; Pulse 68; Resp 18; Temp 98.2; Pulse Ox 99% on R/A; ph 09:16 Pain Scale: Adult iw MDM: 09:21 Patient medically screened. ms3 09:22 Differential diagnosis: appendicitis, bowel obstruction, non-specific abd pain, urinary ms3 tract infection. 11:27 Data reviewed: vital signs, nurses notes, lab test result(s), radiologic studies, and ms3 as a result, I will admit patient. Consideration of Admission/Observation Patient was admitted/placed on observation. Management of patient was discussed with the following: General surgery, Dr. Trevino. I considered the following discharge prescriptions or medication management in the emergency department Medications were administered in the Emergency Department. See MAR. Counseling: I had a detailed discussion with the patient and/or guardian regarding the historical points, exam findings, and any diagnostic results supporting the discharge/admit diagnosis, lab results, radiology results, the need for further work-up and treatment in the hospital. ED course: Discussed with patient positive appendicitis on CT. Case was discussed with Dr. Trevino and he accepts patient to his service as observation. 12/22 09:21 Order name: CBC with Diff; Complete Time: 10:45 ms3 12/22 09:21 Order name: CMP; Complete Time: 10:45 ms3 12/22 09:21 Order name: Lipase; Complete Time: 10:45 ms3 12/22 09:21 Order name: Urinalysis w/ reflexes; Complete Time: 10:45 ms3 12/22 09:21 Order name: CT Abd/Pelvis - IV Contrast Only; Complete Time: 11:23 ms3 12/22 09:21 Order name: IV Saline Lock; Complete Time: 09:42 ms3 12/22 09:21 Order name: Labs collected and sent; Complete Time: 09:42 ms3 Administered Medications: 09:41 Drug: NS 0.9% IV 1000 ml IV at 1 bolus Per protocol; 1000 mL bolus Route: IV; Rate: 1 hb bolus; Site: right forearm; 11:51 Follow up: Response: No adverse reaction; IV Status: Completed infusion; IV Intake: ph 1000ml 09:41 Drug: TORadol - Ketorolac IVP 15 mg IVP once Route: IVP; Site: right forearm; hb 11:51 Follow up: Response: No adverse reaction; Pain is decreased ph 09:41 Drug: Ondansetron IVP 4 mg IVP once; over 2 minutes Route: IVP; Site: right forearm; hb 11:51 Follow up: Response: No adverse reaction; Nausea is decreased ph 11:51 Drug: Piperacillin-Tazobactam IVPB 3.375 grams IVPB once over 60 mins; (mix in NS 100 ph mL) Route: IVPB; Infused Over: 60 mins; Site: right forearm; 12:29 Follow up: Response: No adverse reaction; IV Status: Completed infusion; IV Intake: cm10 100ml 13:26 Drug: morphine IVP or IV 4 mg IVP once over 4 mins Route: IVP; Infused Over: 4 mins; ph Site: right forearm; 13:40 Follow up: Response: No adverse reaction ph Disposition Summary: 12/22/22 11:27 Hospitalization Ordered Notes: Hospitalization Status: Observation ms3 Provider: Moreno Trevino ms3 Location: Telemetry/MedSur (observation) ms3 Condition: Stable ms3 Problem: new ms3 Symptoms: are unchanged ms3 Bed/Room Type: Standard ms3 Room Assignment: ms3 Diagnosis - Unspecified acute appendicitis ms3 - Lower abdominal pain, unspecified ms3 Forms: - Medication Reconciliation Form ms3 - SBAR form ms3 - Leadership Thank You Letter ms3 Signatures: Dispatcher [employer] Faye Gilliam RN RN iw Hall, Patricia, RN RN Genoveva Farooq RN RN hb Sims, Marcus, DO DO ms3 Kaylan Alarcon RN cm10
[2022-12-22] MEDS ORDERED: ONDANSETRON 4 MG/2 ML VIAL IV PRN ×2 (11:43→15:56)
[2022-12-22] MEDS ORDERED: PIPERACIL/TAZO 3.375 GM VIAL IV ONE (11:48)
[2022-12-22] MEDS ORDERED: NA CHLORIDE 0.9% 100 ML ONE (11:48)
[2022-12-22] MEDS: NA CHLORIDE 0.9% 1,000 ML IV SCH ×2 (12:00→20:07)
[2022-12-22] MEDS ORDERED: MORPHINE 4 MG/ML SYR ONE (13:29)
[2022-12-22] MEDS ORDERED: propofoL 200 MG/20 ML VIAL IV ONE (14:05)
[2022-12-22] MEDS ORDERED: ROCURONIUM 50 MG/5 ML VIAL IV ONE (14:05)
[2022-12-22] MEDS ORDERED: FENTANYL CITR 100 MCG/2 ML ONE (14:05)
[2022-12-22] MEDS ORDERED: LIDOCAINE 2% MPF 5 ML VIAL ONE (14:08)
[2022-12-22] MEDS ORDERED: MIDAZOLAM HCL 2 MG/2 ML INJ ONE (14:09)
--- NOTE | 2022-12-22 14:13 | P.HP ---
Date of Service: 12/22/22 PC: This 57-year-old female presented to emergency room with abdominal pain for diagnosis and treatment. HPC: Patient has not felt well since yesterday. Has been having right lower quadrant abdominal pain. Radiated across her abdomen. It started last night, but earlier this morning pain intensified and she could no longer stand it. No nausea or vomiting, no diarrhea. PSHx: Previous PMHx: Hypothyroid Social Hx: Says she is allergic to codeine Sys R: No cough, wheeze, shortness of breath. No chest pain or palpitations. Denies any urinary complaints O/E: Awake alert vital signs are stable HEENT: Within normal limits Chest: Chest movement equal bilaterally Abd: Mild right lower quadrant tenderness, some guarding but no true rebound [place]: Intact Data: CT scan demonstrates appendix with fecaliths Impression: Acute abdomen with early appendicitis Plan: I will taken to the operating room for laparoscopic possible open appendectomy. The risks of this procedure have been discussed. The possibility of bleeding, infection, injury to bowel and surrounding structures were outlined. The possible need for an open and/or further surgeries and procedures was discussed. Abscess formation and other untoward events were explained. She understands and wants us to proceed.
[2022-12-22] MEDS ORDERED: HYDROMORPHONE HCL 1 MG/ML INJ ONE (14:19)
[2022-12-22] MEDS: BUPIVACAINE 0.5% PF 10 ML VIAL ONE ×2 (14:28→15:05)
[2022-12-22] MEDS ORDERED: EPHEDRINE SULF 50 MG/ML VIAL ONE (14:47)
[2022-12-22] MEDS ORDERED: dexAMETHasone 10 MG/ML VIAL ONE (14:53)
--- NOTE | 2022-12-22 15:28 | P.OP ---
Preoperative diagnosis: Acute abdomen Postoperative diagnosis: The same with acute appendicitis Primary procedure: Laparoscopic appendectomy Anesthesia: General Estimated blood loss: Less than 10 cc Specimen: 1 appendix Operative Technique: The patient brought the operating room placed supine on the table. After the induction of adequate general endotracheal anesthesia, there the abdomen was prepped with a DuraPrep solution, she was draped in the usual aseptic manner. A subumbilical incision was made. This brought down to the skin and subcutaneous tissue. The Visiport was used to enter the peritoneal cavity and created pneumoperitoneum to approximately 12 mmHg. Under direct vision a 5 mm trocar was placed on the right lateral side of the abdomen, and another in the suprapubic area. With the patient placed in Trendelenburg and rolled to the left we were now able to visualize the right lower quadrant. We could see an inflammatory process just adjacent to the cecum. Gentle dissection of this exposed a distended appendix with a lot of acute and chronic adhesions to the area. We could see that the appendix was markedly distended. An opening was made through the mesentery of the appendix. We were able to fire a linear stapler across the base of the appendix just at its junction with the cecum. The mesentery of the appendix was taken down using a linear stapler. The inspection of the specimen showed that there was rupture with a actual fecalith lying free in the peritoneal cavity. The peritoneal the specimen was placed into an Endo Catch and brought out through the umbilical trocar site. The fecalith was sucked up with the suction and evacuated from the peritoneal cavity. Attention was now turned towards the true pelvis. This area had been irrigated with a saline solution and all blood and clots removed prior to our fishing out of the fecalith. This area remained clean as we inspected with our camera. She was returned to the neutral position on the OR table. An Endo Close was used to place a umbilical suture. The pneumoperitoneum was now collapsed, the sutures tied, and neelima applied to the skin. She was stable and sent to the recovery room. Needle sponge instrument count were correct. No drains were placed. Complications: None Transferred to: Recovery Room Condition: Good
[2022-12-22] MEDS ORDERED: GLYCOPYRROLATE 0.2 MG/ML SYR ONE (15:35)
[2022-12-22] MEDS ORDERED: NEOSTIGMINE 1 MG/ML -10 ML VIAL ONE (15:35)
[2022-12-22] MEDS ORDERED: HYDROCODONE/APAP 7.5/325 MG TAB PO PRN (15:56)
[2022-12-22] MEDS ORDERED: MORPHINE 2 MG/ML SYR IV PRN (15:56)
[2022-12-22 17:00] VITALS: BMI 28.3
[2022-12-23] MEDS: NA CHLORIDE 0.9% 1,000 ML IV SCH ×2 (06:42→08:00)
[2022-12-23 08:39] VITALS: TEMP 97.1
[2022-12-23 10:16] VITALS: O2SAT 96
[2022-12-23 12:15] VITALS: BP 110/64
--- NOTE | 2022-12-23 14:14 | P.DS ---
Admission Date: 12/22/22 Discharge Date: 12/23/22 Disposition: ROUTINE DISCHARGE Discharge Condition: GOOD Reason for Admission: Acute postoperative abdominal pain Procedures: Laparoscopic appendectomy Brief History of Present Illness: Patient presented to the emergency room with a 24-hour history of right lower quadrant abdominal pain Hospital Course: The patient was evaluated in the ER. After work-up she was found to have acute appendicitis with fecaliths. She was brought to the operating where she underwent a laparoscopic appendectomy. She was admitted postoperatively for observation and pain control. Today she is up ambulating, tolerating a regular diet, and her pain is controlled on nonsteroidal anti-inflammatories. She is voiding on her own, has good effort on incentive spirometry, and is anxious to be discharged. Vital Signs/Physical Exam: Temp Pulse Resp BP Pulse Ox 97.1 F 77 16 110/64 96 12/23/22 12:00 12/23/22 12:00 12/23/22 12:00 12/23/22 12:00 12/23/22 12:00 Laboratory Data at Discharge: WBC 7.30 thou/uL (4.3-10.9) 12/22/22 10:00 Hgb 13.0 g/dL (12.0-15.0) 12/22/22 10:00 Hct 38.7 % (36.0-45.0) 12/22/22 10:00 Plt Count 215 thou/uL (152-406) 12/22/22 10:00 Sodium 137 mEq/L (136-145) 12/22/22 10:00 Potassium 3.8 mEq/L (3.5-5.1) 12/22/22 10:00 BUN 12 mg/dL (7-18) 12/22/22 10:00 Creatinine 0.94 mg/dL (0.55-1.02) 12/22/22 10:00 Glucose 83 mg/dL (74-106) 12/22/22 10:00 Total Bilirubin 0.4 mg/dL (0.2-1.0) 12/22/22 10:00 AST 19 U/L (15-37) 12/22/22 10:00 ALT 27 U/L (13-56) 12/22/22 10:00 Alkaline Phosphatase 66 U/L (45-117) 12/22/22 10:00 Lipase 41 U/L (13-75) 12/22/22 10:00 Physician Discharge Instructions: DC IV, DC home. [id number] pain medicine as needed. Diet as tolerated. Laxatives as needed. Any questions or problems, go to the emergency room, or contact my office. Call to make an appointment for next week. Any questions or problems, return to the ER. Diet: Regular Activity: Ad anushka Followup: Leslie Angeles NP [Primary Care Provider] - 1-2 Weeks (call to shedule an appointment) Moreno Trevino MD [ACTIVE - CAN ADMIT] - 1 Week (call to schedule an appointment.)
== END 2022-12-23 14:30 | disposition home or self-care (01) ==
LOC: ER 09:04 → ERHOLD 11:43 → 2ND 16:28
PROVIDERS: ADMIT Surgery; ATTEND Surgery
PROC: 0DTJ4ZZ Resection of Appendix, Percutaneous Endoscopic Approach (ICD-10-PCS; principal; 2022-12-22 14:00)
DX: K35.80 Unspecified acute appendicitis (principal); E03.9 Hypothyroidism, unspecified; Z88.5 Allergy status to narcotic agent; Z88.6 Allergy status to analgesic agent
CPT/HCPCS: 36415; 74177; 80053; 81001; 83690; 85025; 88304; 94010; 96361; 96365; 96375; 99285; G0378; J1100; J1170; J2001; J2250; J2405; J2543; J2704; J2710; J3010; J7030; Q9967

== ENCOUNTER 2023-01-23 13:45 | Emergency (ER) | payer SELFPAY ==
--- OUTSIDE RECORDS SUMMARY | 2023-01-23 13:47 | XMS REPORT | Continuity of Care Document ---
Author Name Unknown Address [address] [place] [address] [facility] thconnect Address [address] [place] [address] Care Team Providers Care Bobbin Collector Name Role Phone Unavailable Unavailable Unavailable Encounters Start Date/Time End Date/Time Encounter Type Admission Type Attending Clinicians [facility] Facility Care Department Encounter ID Source 2022-12-31 14:13:08 2022-12-31 14:13:08 Outpatient [facility] [id number] Ricardo Pena 2022-12-02 09:43:11 2022-12-02 09:43:11 Outpatient [facility] [id number] Ricardo Pena 2022-11-30 17:35:51 2022-11-30 17:35:51 Outpatient [facility] [id number] Ricardo Pena 2022-10-29 14:09:39 2022-10-29 14:09:39 Outpatient [facility] [id number] Ricardo Pena 2022-10-01 14:22:35 2022-10-01 14:22:35 Outpatient [facility] [id number] Ricardo Pena Results Test Description Test Time Test Comments Results Result Co mments Source CULTURE, URINE 2021-09-07 11:47:32 SPECIMEN NUMBER: [id number] CULTURE, URINE SPECIMEN NUMBER: [id number] SPECIMEN COMMENT: URINE SOURCE: URINE REPORT STATUS: [...] CONCENTRATION (REYNA) WHICH IS EXPRESSED IN MCG/ML. HPV HIGH RISK WITH GENOTYPE, [id number] 17:39:19* Test Item Value Reference Range Interpretation Comme nts HPV HIGH RISK INTERP (test code = 04803) NEGATIVE NEGATIVE HPV 16 (test code = 59233) NEGATIVE HPV 18 (test code = 24804) NEGATIVE HPV, HR, OTHER GENOTYPES (test code = 14752) NEGATIVE Testing methodol ogy is real-time PCR utilizing hydrolysis probes with the Alejandra Jed 4800 system. The test individually detects genotypes 16 and 18, as well as the other 12 high risk types (31,33,35,39,45,51,52,56 ,58,59,66,68). The expected result is negative. A negative result does not rule out the presence of HPV not included in the genotype set, a low level of infection or specimen sampling error. UNLESS OTHERWISE INDICATED, ALL TESTING PERFORMED [facility] [address] [place], [place] [id number] COMBINING MACHINE OPERATOR: REBECA MARC M.D. CLIA NUMBER [id number] [place]. [id number] VAGINAL PATHOGENS DNA [id number] 15:53:00* Test Item Value Reference Range Interpretation Comme nts ALTA SPECIES (test code = 06247) NEGATIVE NEGATIVE G. VAGINALIS (test code = 88899) NEGATIVE NEGATIVE T. VAGINALIS (test code = 81215) NEGATIVE NEGATIVE UNLESS OTHERWISE INDICATED, ALL TESTING PERFORMED [facility] [address] [place] [id number] COMBINING MACHINE OPERATOR: REBECA MARC M.D. CLIA NUMBER [id number] [place]. [id number]
--- NOTE | 2023-01-23 16:35 | EDPHYS ---
Physician Documentation [facility] Name: Demetria Salazar Age: 57 yrs Sex: Female : 1965 Arrival Date: 01/23/2023 Time: 13:45 Bed 12 Private MD: ED Physician Jesus Olivia HPI: 01/24 08:22 This 57 yrs old Female presents to ER via Ambulatory with complaints of Elbow pain. sb4 08:22 The patient or guardian complains of pain, that is acute. The complaints affect the sb4 right elbow. Onset: The symptoms/episode began/occurred 1 week(s) ago. Treatment prior to arrival includes: over the counter medications, NSAIDS. Patient reports right elbow pain for 1 week that is not getting better despite ibuprofen. 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 She denies any numbness or tingling in her hand but does state that the pain radiates down her arm into her hand.. Historical: - Allergies: 01/23 14:08 Aspirin; nj1 14:08 Codeine; nj1 - PMHx: 14:08 Hypothyroidism; nj1 - PSHx: 14:08 section; Appendectomy; nj1 - Immunization history:: Client reports having NOT received the Covid vaccine. - Social history:: Smoking status: Patient reports the use of cigarette tobacco products, smokes one-half pack cigarettes per day, Reported history of juuling and/or vaping. ROS: 01/24 08:22 Constitutional: Negative for fever, chills, and weight loss, sb4 MS/extremity: Positive for pain, of the right elbow, Exam: 08:22 Constitutional: This is a well developed, well nourished patient who is awake, alert, sb4 and in no acute distress. Head/Face: Normocephalic, atraumatic. Eyes: Extra-ocular motions intact. Periorbital areas with no swelling, redness, or edema. ENT: Mucous membranes moist. Cardiovascular: Regular rate and rhythm with a normal S1 and S2. Respiratory: Lungs have equal breath sounds bilaterally, clear to auscultation and percussion. No rales, rhonchi or wheezes noted. No increased work of breathing, no retractions or nasal flaring. Abdomen/GI: Soft, non-tender, no distension. Skin: Warm, dry with normal turgor. Normal color with no rashes, no lesions, and no evidence of cellulitis. Neuro: Awake and alert, GCS 15, oriented to person, place, time, and situation. Motor strength 5/5 in all extremities. Sensory grossly intact. 08:22 Musculoskeletal/extremity: Tenderness on lateral epicondyle of right elbow. Normal range of motion. Pulses intact. Full strength in right hand.. Vital Signs: 01/23 14:06 BP 130 / 74; Pulse 66; Resp 18; Temp 98; Pulse Ox 100% ; Weight 69.4 kg; Height 5 ft. 2 nj1 in. ; Pain 0/10; 16:44 BP 129 / 73; Pulse 57; Resp 16; Pulse Ox 97% on R/A; me1 14:06 Body Mass Index 27.98 (69.40 kg, 157.48 cm) nj1 14:06 Pain Scale: Adult nj1 MDM: 14:42 Patient medically screened. sb4 01/24 08:22 Differential diagnosis: tendonitis. Differential diagnosis: Epicondylitis, neuropathy. sb4 Data reviewed: vital signs, nurses notes, and as a result, I will discharge patient. Test considered but Not performed: X-ray: Not indicated, no injury. Clinical diagnosis. Historians other than the Patient: Spouse/Significant Other: . Care significantly affected by the following Social Determinants of Health: Poor access to healthcare and/or lack of insurance. Counseling: I had a detailed discussion with the patient and/or guardian regarding the historical points, exam findings, and any diagnostic results supporting the discharge/admit diagnosis, the need for outpatient follow up, a orthopedic surgeon, to return to the emergency department if symptoms worsen or persist or if there are any questions or concerns that arise at home. Administered Medications: 01/23 16:38 Drug: Dexamethasone IM 10 mg IM once Route: IM; Site: right deltoid; me1 16:38 Follow up: Response: No adverse reaction me1 Disposition: 19:56 I was immediately available on-site in the Emergency Department for consultation in the ms3 care of the patient. Disposition Summary: 01/23/23 16:34 Discharge Ordered Notes: Location: Home sb4 Problem: an ongoing problem sb4 Symptoms: are unchanged sb4 Condition: Stable sb4 Diagnosis - Lateral epicondylitis, right elbow sb4 Followup: sb4 - With: Cal Orellana MD - When: As needed - Reason: If symptoms return, Further diagnostic work-up Discharge Instructions: - Discharge Summary Sheet sb4 - Tennis Elbow, [id number] sb4 Forms: - Medication Reconciliation Form sb4 - Thank You Letter sb4 - Antibiotic Education sb4 - Prescription Opioid Use sb4 - Patient Portal Instructions sb4 - Leadership Thank You Letter sb4 Prescriptions: - Medrol (Darin) 4 mg Oral Tablets, Dose Pack - take 1 tablet ORAL route as directed - follow package instructions; 1 packet; sb4 Refills: 0, Product Selection Permitted Signatures: Jesus Olivia, DO MASON ms3 Lina Chowdhury PA-C PA-C sb4 Yesenia Metcalf, RN RN nj1 Rivka Smith RN RN me1
--- NOTE | 2023-01-23 16:35 | ER ---
Nurse's Notes [facility] Name: Demetria Salazar Age: 57 yrs Sex: Female : 1965 Arrival Date: 01/23/2023 Time: 13:45 Bed 12 Private MD: Diagnosis: Lateral epicondylitis, right elbow Presentation: 01/23 14:06 Chief complaint: Patient states: Right elbow pain for about a week and a half, getting nj1 worse. Unknown injury. Has tried ibuprofen with no relief. Coronavirus screen: Vaccine status: Patient reports being unvaccinated. Ebola Screen: Patient denies travel to an Ebola-affected area in the 21 days before illness onset. Initial Sepsis Screen: Does the patient meet any 2 criteria? No. Patient's initial sepsis screen is negative. Does the patient have a suspected source of infection? No. Patient's initial sepsis screen is negative. Risk Assessment: Do you want to hurt yourself or someone else? Patient reports no desire to harm self or others. Onset of symptoms was December 2022. 14:06 Method Of Arrival: Ambulatory [facility] 14:06 Acuity: EBONY 3 nj1 Historical: - Allergies: 14:08 Aspirin; nj1 14:08 Codeine; nj1 - PMHx: 14:08 Hypothyroidism; nj1 - PSHx: 14:08 section; Appendectomy; nj1 - Immunization history:: Client reports having NOT received the Covid vaccine. - Social history:: Smoking status: Patient reports the use of cigarette tobacco products, smokes one-half pack cigarettes per day, Reported history of juuling and/or vaping. Screenin:42 [facility] ED Fall Risk Assessment (Adult) History of falling in the last 3 months, me1 including since admission No falls in past 3 months (0 pts) Confusion or Disorientation No (0 pts) Intoxicated or Sedated No (0 pts) Impaired Gait No (0 pts) Mobility Assist Device Used No (0 pt) Altered Elimination No (0 pt) Score/Fall Risk Level 0 - 2 = Low Risk Maintained a safe environment, Provided non-skid footwear, Hourly rounding (assess needs \T\ fall precautionary measures) done. Abuse screen: Denies threats or abuse. Nutritional screening: No deficits noted. Tuberculosis screening: No symptoms or risk factors identified. Assessment: 16:42 General: Appears uncomfortable, well groomed, well developed, well nourished, Behavior me1 is calm, cooperative, appropriate for age, Reports Right elbow pain for about a week and a half, getting worse. Unknown injury. Has tried ibuprofen with no relief. Pain: Denies pain. Pain: Complains of pain in right elbow Pain does not radiate. Pain at worst was 10 out of 10 on a pain scale. Quality of pain is described as sharp, Pain began suddenly, Is intermittent, episodic, Aggravated by increased activity, repositioning. Neuro: Level of Consciousness is awake, alert, obeys commands, Oriented to person, place, time, situation, Appropriate for age. Cardiovascular: Capillary refill < 3 seconds Patient's skin is warm and dry. Respiratory: Airway is patent Respiratory effort is even, unlabored, Respiratory pattern is regular, symmetrical. Musculoskeletal: Reports pain in right elbow. Vital Signs: 14:06 BP 130 / 74; Pulse 66; Resp 18; Temp 98; Pulse Ox 100% ; Weight 69.4 kg; Height 5 ft. 2 nj1 in. ; Pain 0/10; 16:44 BP 129 / 73; Pulse 57; Resp 16; Pulse Ox 97% on R/A; me1 14:06 Body Mass Index 27.98 (69.40 kg, 157.48 cm) nj1 14:06 Pain Scale: Adult [facility] ED Course: 13:49 Patient arrived in ED. im 14:08 Lina Chowdhury PA-C is PHCP. sb4 14:08 Jesus Olivia DO is Attending Physician. sb4 14:08 Triage completed. nj1 14:09 Arm band placed on right wrist. nj1 16:34 Rivka Smith, RN is Primary Nurse. me1 16:34 Cal Orellana MD is Referral Physician. sb4 16:42 Patient has correct armband on for positive identification. Bed in low position. Call [facility] light in reach. Side rails up X 1. Provided Education on: POC. Verbalized understanding. . 16:42 No provider procedures requiring assistance completed. me1 16:53 Patient did not have IV access during this emergency room visit. or1 Administered Medications: 16:38 Drug: Dexamethasone IM 10 mg IM once Route: IM; Site: right deltoid; [facility] 16:38 Follow up: Response: No adverse reaction me1 Medication: 16:42 VIS not applicable for this client. me1 Outcome: 16:34 Discharge ordered by . sb4 16:53 Discharged to home ambulatory, with significant other, me1 16:53 Condition: stable 16:53 Discharge instructions given to patient, significant other, Instructed on discharge instructions, follow up and referral plans. medication usage, Demonstrated understanding of instructions, follow-up care, medications, Prescriptions given X 2, 16:53 Patient left the ED. me1 Signatures: Lina Chowdhury PA-C PA-C sb4 Yesenia Metcalf, RN RN nj1 Yelena Simmons Michelle RN RN me1 Corrections: (The following items were deleted from the chart) 16:42 14:06 Chief complaint: Patient states: Right elbow pain for about a week and a half, me1 getting worse. Unknown injury. Has tried ibuprofen with no relief. nj1
[2023-01-23] MEDS ORDERED: dexAMETHasone 10 MG/ML VIAL ONE (16:49)
[2023-01-23 17:20] VITALS: TEMP 98
[2023-01-23 17:22] VITALS: BP 129/73; O2SAT 97
== END 2023-01-23 16:53 | disposition home or self-care (01) ==
LOC: ER 13:45
DX: M77.11 Lateral epicondylitis, right elbow (principal); M25.521 Pain in right elbow; Z88.5 Allergy status to narcotic agent; Z88.8 Allergy status to other drugs, medicaments and biological substances; Z72.0 Tobacco use
CPT/HCPCS: 96372; 99284; J1100

== ENCOUNTER 2024-10-31 13:41 | Emergency (ER) | payer OTHER ==
--- OUTSIDE RECORDS SUMMARY | 2024-10-31 13:50 | XMS REPORT | Continuity of Care Document ---
Author Name Unknown Address [address] [facility] [address] [place] [address] Organization [facility] [place] Address [address] [facility]. [address] [place] [address] Care Team Providers Care Faculty Research Assistant Name Role Phone PCP, PATIENT DOES NOT HAVE A Primary Care Physic natali Unavailable NICOLASA MAST Attending Clinician Unavailable Allergies, Adverse Reactions, Alerts Allergy Name Allergy Type Status Severity Reaction(s) Onset Date Inactive Date Treating Clinician Comments Source codine (Not Checked) Propensi ty to adverse reaction to drug Active 2-24 00:00: 00 Ricardo Pena Codeine Propensi ty to adverse reaction s Active Other - See comments - 00:00: 00 Irritates stomach [facility] ASPIRIN DRUG INGREDI Active Other-Cmnt - 00:00: 00 [facility] CODEINE DRUG INGREDI Active Other-Cmnt - 00:00: 00 [facility] Aspirin Propensi ty to adverse reaction s Active Other - See comments - 00:00: 00 Irritates stomach [facility] n Propensi ty to adverse reaction to drug Active 5- 00:00: 00 Ricardo Pena Aspirin - Oral Propensi ty to adverse reaction to drug Active 5- 00:00: 00 Ricardo Pena Social History Social Habit Start Date Stop Date Quantity Comments Source Sexual orientation [facility] Sex assigned at 1965 00:00:00 1965 00:00:00 [facility] Smoking Status Start Date Stop Date Source Tobacco smoking consumption unknown [facility] Medications Ordered Medication Name Filled Medication Name Start Date Stop Date Current Medication? Ordering Clinician Indication Dosage Frequency Signature (SIG) Comments Components Source topiramate 25 mg tablet 2024-0 8-11 00:00: 00 Yes 1mg Ricardo Pena phentermine 37.5 mg capsule 2024-0 8-11 00:00: 00 Yes 1mg Ricardo Pena levothyroxi ne 50 mcg tablet 2024-0 7-11 00:00: 00 Yes 1mcg Ricardo Pena phentermine 37.5 mg capsule 2024-0 7-11 00:00: 00 Yes 1mg Ricardo Pena phentermine 37.5 mg capsule 2024-0 6-12 00:00: 00 Yes 1mg Ricardo Pena phentermine 37.5 mg capsule 2024-0 5-12 00:00: 00 Yes 1mg Ricardo Pena levothyroxi ne 50 mcg tablet 2024-0 4-11 00:00: 00 Yes 1mcg Ricardo Pena phentermine 37.5 mg capsule 2024-0 4-10 00:00: 00 Yes 1mg Ricardo Pean amoxicillin 875 mg-potassiu beryl clavulanate 125 mg tablet 2024-0 3-10 00:00: 00 Yes 1mg Ricardo Pena phentermine 37.5 mg capsule 0 3-10 00:00: 00 Yes 1mg Ricardo Pena cyclobenzap rine 10 mg tablet 2024-0 2-24 00:00: 00 Yes 1mg Ricardo Pena levothyroxi ne 50 mcg tablet 0 2-24 00:00: 00 Yes 1mcg Ricardo Pena Bromfed DM 2 mg-30 mg-10 mg/5 mL oral syrup 2024-0 2-24 00:00: 00 Yes 10mg/5 mL Ricardo Pena Wellbutrin XL 300 mg 24 hr tablet, extended release 2023-02- 00:00: 00 Yes 1mg Ricardo Pena levothyroxi ne 50 mcg tablet 2023-02- 00:00: 00 Yes 1mcg Ricardo Pena Wellbutrin XL 300 mg 24 hr tablet, extended release 2023-02- 00:00: 00 Yes 1mg Ricardo Pena levothyroxi ne 50 mcg tablet 2023-02 00:00: 00 Yes 1mcg Ricardo Pena meloxicam 7.5 mg tablet 10-13 00:00: 00 Yes 1mg Ricardo Pena Wellbutrin XL 300 mg 24 hr tablet, extended release 10-13 00:00: 00 Yes 1mg Ricardo Pena cyclobenzap rine 10 mg tablet 10-13 00:00: 00 Yes 1mg Ricardo Pena levothyroxi ne 50 mcg tablet 10-13 00:00: 00 Yes 1mcg Ricardo Pena Wellbutrin XL 300 mg 24 hr tablet, extended release 07-21 00:00: 00 Yes 1mg Ricardo Pena levothyroxi ne 50 mcg tablet 07-21 00:00: 00 Yes 1mcg Ricardo Pena Anusol-HC 25 mg rectal suppository 07-21 00:00: 00 Yes 1mg Ricardo Pena Linzess 145 mcg capsule 07-21 00:00: 00 Yes 1mcg Ricardo Pena ciprofloxac in HCl (CIPRO) tablet 500 mg 07-04 22:45: 00 07-04 21:51 :00 No 500mg 500 mg, Oral, ONCE, 1 dose, On Tue07/05/23 at 1745, JAKOB, Reason for Anti-Infec tive: Documented Infection, Documented Infection Site: Urine, Duration of Therapy: Once (ED) [facility] sodium chloride (NS) injection 5 mL 07-04 19:50: 28 Yes 5mL 5 mL, Intravenou s, PRN, Starting on Tue07/05/23 at 1450, Until Discontinu ed, Routine, IV line flushing [facility] ciprofloxac in HCl 500 mg tablet 07-04 00:00: 00 07-15 04:59 :00 No [id number] 500mg Take 1 tablet by mouth in the morning and 1 tablet in the evening. Do all this for 10 days. [facility] permethrin 5 % topical cream 2024-0 5-11 00:00: 00 Yes % Ricardo Pena Wellbutrin XL 150 mg 24 hr tablet, extended release - 00:00: 00 Yes 1mg Ricardo Pena TAKE 1 CAPSULE EVERY MORNING BEFORE BREAKFAST. 3-16 00:00: 00 Yes 30 Ricardo Pena USE 2 SPRAYS IN EACH NOSTRIL TWICE DAILY. 3-16 00:00: 00 Yes 65 Ricardo Pena TAKE 1 TABLET DAILY. 3-16 00:00: 00 06-24 00:00 :00 No 10 Ricardo Pena TAKE 5 ML EVERY 4 TO 6 HOURS NEEDED. 3-16 00:00: 00 06-24 00:00 :00 No [id number] Ricardo Pena TAKE 1 CAPSULE EVERY MORNING BEFORE BREAKFAST. 1-20 00:00: 00 06-24 00:00 :00 No 30 Ricardo Pena TAKE 1 CAPSULE EVERY MORNING BEFORE BREAKFAST. 2022-02 2-16 00:00: 00 06-24 00:00 :00 No 30 Ricardo Pena TAKE 1 CAPSULE EVERY MORNING BEFORE BREAKFAST. 2022-02 1-17 00:00: 00 06-24 00:00 :00 No 15 Ricardo Pena TAKE 1 CAPSULE EVERY MORNING BEFORE BREAKFAST. 2022-02 0-19 00:00: 00 06-24 00:00 :00 No 15 Ricardo Pena TAKE 5 ML EVERY 4 TO 6 HOURS NEEDED. 2022-02 0-19 00:00: 00 06-24 00:00 :00 No [id number] Ricardo Pena TAKE 1 CAPSULE EVERY MORNING BEFORE BREAKFAST. 9-15 00:00: 00 06-24 00:00 :00 No 15 Ricardo Pena NAPROXEN 8-16 00:00: 00 Yes Ricardo Pena CYCLOBENZAP R 8-16 00:00: 00 Yes Ricardo Pena TAKE 1 TABLET BY MOUTH EVERY 12 HOURS NEEDED FOR PAIN 8-14 00:00: 00 Yes Ricardo Pena TAKE 1 CAPSULE EVERY MORNING BEFORE BREAKFAST. 7-24 00:00: 00 06-24 00:00 :00 No 15 Ricardo Pena LEVOTHYROXI N 0 7- 00:00: 00 Yes Ricardo Pena TAKE 1 TABLET EVERY MORNING. 0 6-05 00:00: 00 06-24 00:00 :00 No 50 Ricardo Pena TAKE 1 TABLET EVERY 8 HOURS NEEDED FOR NAUSEA AND VOMITING. 0 6- 00:00: 00 06-24 00:00 :00 No 8 Ricardo Pena PREDNISONE 0 4-07 00:00: 00 Yes Ricardo Pena TAKE 1 TABLET BY MOUTH EVERY 12 HOURS NEEDED 0 3-08 00:00: 00 Yes Ricardo Pena CEFDINIR 0 1-19 00:00: 00 Yes 300 Ricardo Pena PROMETHAZIN E SYP DM 0 1-18 00:00: 00 Yes Ricardo Pena TAKE 1 CAPSULE BY MOUTH EVERY 12 HOURS FOR 10 DAYS 0 1-18 00:00: 00 Yes Ricardo Pena TAKE 1 TABLET BY MOUTH THREE TIMES DAILY 2021-0 8-15 00:00: 00 Yes Ricardo Pena &lt 2021-0 8-15 00:00: 00 Yes 500 Ricardo Pena TAKE 1 TABLET BY MOUTH THREE TIMES A DAY NEEDED 2021-0 8-11 00:00: 00 Yes 20 Ricardo Pena &lt 2021-0 7-28 00:00: 00 Yes Ricardo Pena TAKE 1 TABLET BY MOUTH THREE TIMES A DAY NEEDED 2021-0 7-24 00:00: 00 Yes 20 Ricardo Pena Macrobid 100 mg capsule 2021-0 7-21 00:00: 00 Yes 1mg Ricardo Pena &lt 2021-0 7-21 00:00: 00 Yes 500 Ricardo Pena TAKE 1 TABLET BY MOUTH EVERY 12 HOURS FOR 10 DAYS 2021-0 7-21 00:00: 00 Yes 500 Ricardo Pena &lt 2021-0 7-21 00:00: 00 Yes Ricardo Pena TAKE 1 TABLET BY MOUTH THREE TIMES A DAY NEEDED 2021-0 7-21 00:00: 00 Yes 20 Ricardo Pena NITROFURANT N 2021-0 7-21 00:00: 00 Yes 100 Ricardo Pena TAKE 1 TABLET BY MOUTH ONCE DAILY 0 -19 00:00: 00 Yes 40 Ricardo Pena &lt 2021-0 7-19 00:00: 00 Yes 10 Ricardo Pena TAKE 1 CAPSULE BY MOUTH EVERY 8 HOURS FOR 10 DAYS 0 -19 00:00: 00 Yes 500 Ricardo Pena &lt 2021-0 7-13 00:00: 00 Yes 40 Ricardo Pena Dose Unknown 6-06 00:00: 00 Yes Ricardo Pena cyclobenzap rine 10 mg tablet 0 -20 00:00: 00 Yes 1mg Ricardo Pena naproxen 500 mg tablet 0 -20 00:00: 00 Yes 1mg Ricardo Pena Carafate 1 gram tablet -20 00:00: 00 Yes 1gram Ricardo Pena Dose Unknown - 00:00: 00 Yes Ricardo Pena Dose Unknown 5-11 00:00: 00 Yes Ricardo Pena Dose Unknown - 00:00: 00 Yes Ricardo Pena cyclobenzap rine 10 mg tablet 5-10 00:00: 00 Yes 1mg Ricardo Pena acetaminoph en 300 mg-codeine 30 mg tablet 5-10 00:00: 00 Yes 1mg Ricardo Pena methylpredn isolone 4 mg tablet 5-10 00:00: 00 Yes 1mg Ricardo Pena Vital Signs Vital Name Observation Time Observation Value Comments S ource Systolic blood pressure 2023-07-05 21:52:00 131 mm[Hg] [facility] Diastolic blood pressure 2023-07-05 21:52:00 90 mm[Hg] [facility] Heart rate 2023-07-05 21:52:00 96 /min [facility] Respiratory rate 2023-07-05 21:52:00 16 /min [facility] Oxygen saturation in Arterial blood by Pulse oximetry 2023-07-05 21:52:00 99 /min [facility] Body temperature 2023-07-05 19:36:00 37.5 Terri [facility] Body height 2023-07-05 19:36:00 157.5 cm [facility] Body weight 2023-07-05 19:36:00 69.219 kg [facility] BMI 2023-07-05 19:36:00 27.91 kg/m2 [facility] BP Systolic 2024-09-24 17:20:00 131 mm[Hg] Step hen F Jean BP Diastolic 2024-09-24 17:20:00 77 mm[Hg] Nav phen F Jean Weight Measured 2024-09-24 17:20:00 149.80 pounds Ricardo F Jean Height Measured 2024-09-24 17:20:00 62.00 inches Ricardo F Jean Body Temperature 2024-09-24 17:20:00 98.40 degrees Ricardo F Jean Heart Rate 2024-09-24 17:20:00 74.00 /min Charisse en F Jean Respiratory Rate 2024-09-24 17:20:00 Ricardo F Jean BP Systolic 2024-08-24 16:57:00 Step hen F Jean BP Diastolic 2024-08-24 16:57:00 Nav phen F Jean Weight Measured 2024-08-24 16:57:00 150.20 pounds Ricardo F Jean Height Measured 2024-08-24 16:57:00 62.00 inches Ricardo F Jean Body Temperature 2024-08-24 16:57:00 97.20 degrees Ricardo F Jean Heart Rate 2024-08-24 16:57:00 76.00 /min [facility] en F Jean Respiratory Rate 2024-08-24 16:57:00 18.00 /min Ricardo F Jean BP Systolic 2024-07-26 17:10:00 130 mm[Hg] Step hen F Jean BP Diastolic 2024-07-26 17:10:00 82 mm[Hg] Nav phen F Jean Weight Measured 2024-07-26 17:10:00 156.20 pounds Ricardo F Jean Height Measured 2024-07-26 17:10:00 62.00 inches Ricardo F Jean Body Temperature 2024-07-26 17:10:00 98.00 degrees Ricardo F Jean Heart Rate 2024-07-26 17:10:00 68.00 /min Charisse en F Jean Respiratory Rate 2024-07-26 17:10:00 Ricardo F Jean BP Systolic 2024-06-25 17:21:00 113 mm[Hg] Step hen F Jean BP Diastolic 2024-06-25 17:21:00 82 mm[Hg] Nav phen F Jean Weight Measured 2024-06-25 17:21:00 153.00 pounds Ricardo F Jean Height Measured 2024-06-25 17:21:00 62.00 inches Ricardo F Jean Body Temperature 2024-06-25 17:21:00 98.10 degrees Ricardo F Jean Heart Rate 2024-06-25 17:21:00 97.00 /min Charisse en F Jean Respiratory Rate 2024-06-25 17:21:00 18.00 /min Ricardo F Jean BP Systolic 2024-05-24 14:28:00 120 mm[Hg] Step hen F Jean BP Diastolic 2024-05-24 14:28:00 80 mm[Hg] Nav phen F Jean Weight Measured 2024-05-24 14:28:00 159.00 pounds Ricardo F Jean Height Measured 2024-05-24 14:28:00 62.00 inches Ricardo F Jean Body Temperature 2024-05-24 14:28:00 98.40 degrees Ricardo F Jean Heart Rate 2024-05-24 14:28:00 98.00 /min Charisse en F Jean Respiratory Rate 2024-05-24 14:28:00 18.00 /min Ricardo F Jean BP Systolic 2024-04-23 13:39:00 116 mm[Hg] Step hen F Jean BP Diastolic 2024-04-23 13:39:00 69 mm[Hg] Nav phen F Jean Weight Measured 2024-04-23 13:39:00 162.60 pounds Ricardo F Jean Height Measured 2024-04-23 13:39:00 62.00 inches Ricardo F Jean Body Temperature 2024-04-23 13:39:00 98.30 degrees Ricardo F Jean Heart Rate 2024-04-23 13:39:00 88.00 /min Charisse en F Jean Respiratory Rate 2024-04-23 13:39:00 18.00 /min Ricardo F Jean BP Systolic 2024-04-09 13:12:00 121 mm[Hg] Step hen F Jean BP Diastolic 2024-04-09 13:12:00 80 mm[Hg] Nav phen F Jean Weight Measured 2024-04-09 13:12:00 162.60 pounds Ricardo F Jean Height Measured 2024-04-09 13:12:00 62.00 inches Ricardo F Jean Body Temperature 2024-04-09 13:12:00 100.20 degrees Ricardo F Jean Heart Rate 2024-04-09 13:12:00 91.00 /min Charisse en F Jean Respiratory Rate 2024-04-09 13:12:00 16.00 /min Ricardo F Jean BP Systolic 2023-10-14 16:27:00 127 mm[Hg] Step hen F Jean BP Diastolic 2023-10-14 16:27:00 80 mm[Hg] Nav phen F Jean Weight Measured 2023-10-14 16:27:00 154.00 pounds Ricardo F Jean Height Measured 2023-10-14 16:27:00 62.00 inches Ricardo F Jean Body Temperature 2023-10-14 16:27:00 98.50 degrees Ricardo F Jean Heart Rate 2023-10-14 16:27:00 Charisse en F Jean Respiratory Rate 2023-10-14 16:27:00 Ricardo F Jean BP Systolic 2023-07-22 17:34:00 124 mm[Hg] Step hen F Jean BP Diastolic 2023-07-22 17:34:00 83 mm[Hg] Nav phen F Jean Weight Measured 2023-07-22 17:34:00 155.80 pounds Ricarod F Jean Height Measured 2023-07-22 17:34:00 62.00 inches Ricardo F Jean Body Temperature 2023-07-22 17:34:00 98.20 degrees Ricardo F Jean Heart Rate 2023-07-22 17:34:00 77.00 /min Charisse en F Jean Respiratory Rate 2023-07-22 17:34:00 18.00 /min Ricardo F Jean BP Systolic 2023-06-25 13:27:00 133 mm[Hg] Step hen F Jean BP Diastolic 2023-06-25 13:27:00 85 mm[Hg] Nav phen F Jean Weight Measured 2023-06-25 13:27:00 154.40 pounds Ricardo F Jean Height Measured 2023-06-25 13:27:00 62.00 inches Ricardo F Jean Body Temperature 2023-06-25 13:27:00 98.10 degrees Ricardo F Jean Heart Rate 2023-06-25 13:27:00 85.00 /min Charisse en F Jean Respiratory Rate 2023-06-25 13:27:00 17.00 /min Ricardo F Jean BP Systolic 2023-04-30 09:13:00 134 mm[Hg] Step hen F Jean BP Diastolic 2023-04-30 09:13:00 83 mm[Hg] Nav phen F Jean Weight Measured 2023-04-30 09:13:00 154.00 pounds Ricardo F Jean Height Measured 2023-04-30 09:13:00 62.00 inches Ricardo F Jean Body Temperature 2023-04-30 09:13:00 98.10 degrees Ricardo F Jean Heart Rate 2023-04-30 09:13:00 81.00 /min Charisse en F Jean Respiratory Rate 2023-04-30 09:13:00 17.00 /min Ricardo F Jean BP Systolic 2023-04-01 16:57:00 125 mm[Hg] Step hen F Jean BP Diastolic 2023-04-01 16:57:00 76 mm[Hg] Nav phen F Jean Weight Measured 2023-04-01 16:57:00 156.20 pounds Ricardo F Jean Height Measured 2023-04-01 16:57:00 62.00 inches Ricardo F Jean Body Temperature 2023-04-01 16:57:00 98.20 degrees Ricardo F Jean Heart Rate 2023-04-01 16:57:00 93.00 /min Charisse en F Jean Respiratory Rate 2023-04-01 16:57:00 18.00 /min Ricardo F Jean BP Systolic 2023-03-05 10:15:00 124 mm[Hg] Step hen F Jean BP Diastolic 2023-03-05 10:15:00 79 mm[Hg] Nav phen F Jean Weight Measured 2023-03-05 10:15:00 157.00 pounds Ricardo F Jean Height Measured 2023-03-05 10:15:00 62.00 inches Ricardo F Jean Body Temperature 2023-03-05 10:15:00 98.10 degrees Ricardo F Jean Heart Rate 2023-03-05 10:15:00 77.00 /min Charisse en F Jean Respiratory Rate 2023-03-05 10:15:00 18.00 /min Ricardo F Jean BP Systolic 2023-01-29 10:03:00 134 mm[Hg] Step hen F Jean BP Diastolic 2023-01-29 10:03:00 84 mm[Hg] Nav phen F Jean Weight Measured 2023-01-29 10:03:00 162.40 pounds Ricardo F Jean Height Measured 2023-01-29 10:03:00 62.00 inches Ricardo F Jean Body Temperature 2023-01-29 10:03:00 97.50 degrees Ricardo F Jean Heart Rate 2023-01-29 10:03:00 66.00 /min Charisse en F Jean Respiratory Rate 2023-01-29 10:03:00 18.00 /min Ricardo F Jean BP Systolic 2022-12-31 14:17:00 112 mm[Hg] Step hen F Jean BP Diastolic 2022-12-31 14:17:00 77 mm[Hg] Nav phen F Jean Weight Measured 2022-12-31 14:17:00 164.60 pounds Ricardo F Jean Height Measured 2022-12-31 14:17:00 62.00 inches Ricardo F Jean Body Temperature 2022-12-31 14:17:00 98.20 degrees Ricardo F Jean Heart Rate 2022-12-31 14:17:00 77.00 /min Charisse en F Jean Respiratory Rate 2022-12-31 14:17:00 19.00 /min Ricardo F Jean BP Systolic 2022-12-02 09:53:00 126 mm[Hg] Step hen F Jean BP Diastolic 2022-12-02 09:53:00 81 mm[Hg] Nav phen F Jean Weight Measured 2022-12-02 09:53:00 166.60 pounds Ricardo F Jean Height Measured 2022-12-02 09:53:00 62.00 inches Ricardo F Jean Body Temperature 2022-12-02 09:53:00 98.20 degrees Ricardo F Jean Heart Rate 2022-12-02 09:53:00 77.00 /min Charisse en F Jean Respiratory Rate 2022-12-02 09:53:00 19.00 /min Ricardo F Jean BP Systolic 2022-10-29 14:21:00 123 mm[Hg] Step hen F Jean BP Diastolic 2022-10-29 14:21:00 73 mm[Hg] Nav phen F Jean Weight Measured 2022-10-29 14:21:00 169.60 pounds Ricardo F Jean Height Measured 2022-10-29 14:21:00 62.00 inches Ricardo F Jean Body Temperature 2022-10-29 14:21:00 98.40 degrees Ricardo F Jean Heart Rate 2022-10-29 14:21:00 85.00 /min Charisse en F Jean Respiratory Rate 2022-10-29 14:21:00 19.00 /min Ricardo F Jean BP Systolic 2022-10-01 14:30:00 120 mm[Hg] Step hen F Jean BP Diastolic 2022-10-01 14:30:00 77 mm[Hg] Nav phen F Jean Weight Measured 2022-10-01 14:30:00 177.40 pounds Ricardo F Jean Height Measured 2022-10-01 14:30:00 62.00 inches Ricardo F Jean Body Temperature 2022-10-01 14:30:00 98.10 degrees Ricardo F Jean Heart Rate 2022-10-01 14:30:00 71.00 /min Charisse en F Jean Respiratory Rate 2022-10-01 14:30:00 Ricardo F Jean BP Systolic 2022-09-03 13:11:00 119 mm[Hg] Step hen F Jean BP Diastolic 2022-09-03 13:11:00 74 mm[Hg] Nav phen F Jean Weight Measured 2022-09-03 13:11:00 174.60 pounds Ricardo F Jean Height Measured 2022-09-03 13:11:00 62.00 inches Ricardo F Jean Body Temperature 2022-09-03 13:11:00 98.10 degrees Ricardo F Jean Heart Rate 2022-09-03 13:11:00 76.00 /min Charisse en F Jean Respiratory Rate 2022-09-03 13:11:00 Ricardo F Jean Procedures Procedure Date / Time Performed Performing Clinicia n Source LIPASE 2023-07-05 20:44:00 Nicolasa Mast [facility] COMP. METABOLIC PANEL (17804) 2023-07-05 20:44:00 Nicolasa Mast [facility] CBC WITH DIFF 2023-07-05 20:44:00 Nicolasa Mast [facility] URINALYSIS 2023-07-05 20:44:00 Nicolasa Mast [facility] Encounters Start Date/Time End Date/Time Encounter Type Admission Type Attending [facility] Care Department Encounter ID Source 2024-09-24 17:18:40 2024-09-24 17:18:40 Outpatient SFA SFA [id number] Ricardo Pena 2024-09-24 00:00:00 2024-09-24 00:00:00 Outpatient Visit SFA [id number] Ricardo Pena 2024-08-24 00:00:00 2024-08-24 00:00:00 Outpatient Visit SFA [id number] Ricardo Pena 2024-07-26 17:06:04 2024-07-26 17:06:04 Outpatient SFA SFA [id number] Ricardo Pena 2024-07-26 00:00:00 2024-07-26 00:00:00 Outpatient Visit SFA [id number] Ricardo Pena 2024-06-25 17:14:55 2024-06-25 17:14:55 Outpatient SFA SFA [id number] Ricardo Pena 2024-06-25 00:00:00 2024-06-25 00:00:00 Outpatient Visit SFA [id number] Ricardo Pena 2024-05-24 14:18:13 2024-05-24 14:18:13 Outpatient SFA SFA [id number] Ricardo Pena 2024-05-24 00:00:00 2024-05-24 00:00:00 Outpatient Visit SFA [id number] Ricardo Pena 2024-04-23 13:32:59 2024-04-23 13:32:59 Outpatient SFA SFA [id number] Ricardo Pena 2024-04-23 00:00:00 2024-04-23 00:00:00 Outpatient Visit SFA [id number] Ricardo Pena 2024-04-09 13:05:13 2024-04-09 13:05:13 Outpatient SFA SFA [id number] Ricardo Pena 2024-04-09 00:00:00 2024-04-09 00:00:00 Outpatient Visit SFA [id number] Ricardo Pena 2024-03-06 13:50:09 2024-03-06 13:50:09 Outpatient SFA SFA [id number] Ricardo Pena 2023-10-14 16:27:20 2023-10-14 16:27:20 Outpatient SFA SFA [id number] Ricardo Pena 2023-10-14 00:00:00 2023-10-14 00:00:00 Outpatient Visit SFA [id number] Ricardo Pena 2023-07-22 17:28:37 2023-07-22 17:28:37 Outpatient SFA SFA [id number] Ricardo Pena 2023-07-22 00:00:00 2023-07-22 00:00:00 Outpatient Visit SFA [id number] Ricardo Pena 2023-07-05 14:37:00 2023-07-05 17:07:00 Emergency X NICOLASA [facility] [id number] [facility] 2023-07-05 14:37:00 2023-07-05 17:07:00 Emergency RashawnNicolasa [facility] [id number] [facility] 2023-06-25 13:21:31 2023-06-25 13:21:31 Outpatient SFA SFA [id number] Ricardo Pena 2023-06-25 00:00:00 2023-06-25 00:00:00 Outpatient Visit SFA [id number] Ricardo Pena 2023-04-30 08:55:53 2023-04-30 08:55:53 Outpatient SFA SFA [id number] Ricardo Pena 2023-04-01 16:52:15 2023-04-01 16:52:15 Outpatient SFA SFA [id number] Ricardo Pena 2023-03-05 10:01:57 2023-03-05 10:01:57 Outpatient SFA SFA [id number] Ricardo Pena 2023-01-29 09:55:21 2023-01-29 09:55:21 Outpatient SFA SFA [id number] Ricardo Pena 2022-12-31 14:13:08 2022-12-31 14:13:08 Outpatient SFA SFA [id number] Ricardo Pena 2022-12-02 09:43:11 2022-12-02 09:43:11 Outpatient SFA SFA [id number] Ricardo Pena 2022-11-30 17:35:51 2022-11-30 17:35:51 Outpatient SFA SFA [id number] Ricardo Pena 2022-10-29 14:09:39 2022-10-29 14:09:39 Outpatient SFA SFA [id number] Ricardo Pena 2022-10-01 14:22:35 2022-10-01 14:22:35 Outpatient SFA SFA [id number] Ricardo Pena Results Test Description Test Time Test Comments Results Result Co mments Source Ricardo [id number] 00:00:00* Test Item Value Reference Range Interpretation Comme nts TSH (test code = 3016-3) 2.72 mIU/L Ricardo [id number] 00:00:00* Test Item Value Reference Range Interpretation Comme nts TSH (test code = 3016-3) 2.72 mIU/L Ricardo [place] [id number] 00:00:00* Test Item Value Reference Range Interpretation Comme nts TSH (test code = 3016-3) 2.72 mIU/L Ricardo [place] [id number] 00:00:00* Test Item Value Reference Range Interpretation Comme nts TSH (test code = 3016-3) 2.72 mIU/L Ricardo Madrid [facility] [id number] 00:00:00* Test Item Value Reference Range Interpretation Comme nts ADENOVIRUS (test code = 83930-4) Negative SARS-COV-2 (test code = 69553-3) Negative ENTEROVIRUS D68 (test code = 19200-2) Negative PARAINFLUENZA 1-3 (test code = ?42967-1) Negative BORDETELLA PARAPERTUSSIS (te st code = 93337-8) Negative ANTIBIOTIC RESISTANCE MECA ( test code = 35756-0P) Negative RHINOVIRUS/ENTEROVIRUS (test code = 7993-9) Negative BORDETELLA PERTUSSIS (test c ode = 52616-9) Negative CHLAMYDIA PNEUMONIAE (test c ode = 28898-0) Negative CORONAVIRUS (229E) (test cod e = 76500-4) Negative CORONAVIRUS (HKU1) (test cod e = 70530-9) Negative CORONAVIRUS (NL63) (test cod e = 73633-3) Negative CORONAVIRUS (OC43) (test cod e = 49941-2) Negative HAEMOPHILUS INFLUENZAE (test code = 50528-7) Negative HUMAN METAPNEUMOVIRUS A/B (t est code = 98553-7) Negative INFLUENZA A (test code = 93549-3) Positive INFLUENZA B (test code = 29101-3) Negative KLEBSIELLA PNEUMONIAE (test code = 46345-5Z) Negative MORAXELLA CATARRHALIS (test code = 49202-3) Negative MYCOPLASMA PNEUMONIAE (test code = 78597-8) Negative RSV A/RSV B (test code = 28487-7D) Negative STAPHYLOCOCCUS AUREUS (test code = 23867-5Q) Positive STREPTOCOCCUS PNEUMONIAE (te st code = 21135-4) Negative STREPTOCOCCUS PYOGENES (GROU P A) (test code = 826928-3) Negative Ricardo [id number] 00:00:00* Test Item Value Reference Range Interpretation Comme nts TSH (test code = 3016-3) 5.32 mIU/L Ricardo PenaCBC (INCLUDES DIFF/PLT)2024-04-10 00:00:00* Test Item Value Reference Range Interpretation Comme nts WHITE BLOOD CELL COUNT (test code = 6690-2) 4.6 Thousand/uL RED BLOOD CELL COUNT (test code = 789-8) 4.35 Million/uL HEMOGLOBIN (test code = 718-7) 13.4 g/dL HEMATOCRIT (test code = 4544-3) 39.8 % MCV (test code = 787-2) 91.5 fL MCH (test code = 785-6) 30.8 pg MCHC (test code = 786-4) 33.7 g/dL RDW (test code = 788-0) 12.2 % PLATELET COUNT (test code = 777-3) 195 Thousand/uL MPV (test code = 776-5) 10.3 fL ABSOLUTE NEUTROPHILS (test code = 751-8) 3372 cells/uL ABSOLUTE BAND NEUTROPHILS (test code = 21969-3) DNR cells/uL ABSOLUTE METAMYELOCYTES (chata t code = 24670-2) DNR cells/uL ABSOLUTE MYELOCYTES (test code = 89376-4) DNR cells/uL ABSOLUTE PROMYELOCYTES (test code = 49035-0) DNR cells/uL ABSOLUTE LYMPHOCYTES (test code = 731-0) 580 cells/uL ABSOLUTE MONOCYTES (test cod e = 742-7) 612 cells/uL ABSOLUTE EOSINOPHILS (test code = 711-2) 18 cells/uL ABSOLUTE BASOPHILS (test cod e = 704-7) 18 cells/uL ABSOLUTE BLASTS (test code = 49738-8) DNR cells/uL ABSOLUTE NUCLEATED RBC (test code = 07749-7) DNR cells/uL NEUTROPHILS (test code = 770-8) 73.3 % BAND NEUTROPHILS (test code = 764-1) DNR % METAMYELOCYTES (test code = 740-1) DNR % MYELOCYTES (test code = 749-2) DNR % PROMYELOCYTES (test code = 783-1) DNR % LYMPHOCYTES (test code = 736-9) 12.6 % REACTIVE LYMPHOCYTES (test code = 16146-7) DNR % MONOCYTES (test code = 5905-5) 13.3 % EOSINOPHILS (test code = 713-8) 0.4 % BASOPHILS (test code = 706-2) 0.4 % BLASTS (test code = 709-6) DNR % NUCLEATED RBC (test code = 74696-9) DNR /100WBC COMMENT(S) (test code = 8251-1) DNR Ricardo PenaHEMOGLOBIN [id number] 00:00:00* Test Item Value Reference Range Interpretation Comme nts HEMOGLOBIN A1c (test code = 4548-4) 5.4 %oftotalHgb Ricardo Madrid AustinLIPID [id number] 00:00:00* Test Item Value Reference Range Interpretation Comme nts CHOLESTEROL, TOTAL (test cod e = 2093-3) 179 mg/dL HDL CHOLESTEROL (test code = 2085-9) 61 mg/dL TRIGLYCERIDES (test code = 2571-8) 42 mg/dL LDL-CHOLESTEROL (test code = 87080-9) 106 mg/dL(calc) CHOL/HDLC RATIO (test code = 9830-1) 2.9 (calc) NON HDL CHOLESTEROL (test code = 03608-5) 118 mg/dL(calc) Ricardo PenaCOMPREHENSIVE METABOLIC [id number] 00:00:00* Test Item Value Reference Range Interpretation Comme nts GLUCOSE (test code = 2345-7) 88 mg/dL UREA NITROGEN (BUN) (test code = 3094-0) 18 mg/dL CREATININE (test code = 2160-0) 0.86 mg/dL EGFR (test code = 57357-7) 79 mL/min/1.73m2 BUN/CREATININE RATIO (test code = 3097-3) SEE NOTE: (calc) SODIUM (test code = 2951-2) 136 mmol/L POTASSIUM (test code = 2823-3) 4.1 mmol/L CHLORIDE (test code = 2075-0) 101 mmol/L CARBON DIOXIDE (test code = 8-9) 23 mmol/L CALCIUM (test code = 32628-1) 8.9 mg/dL PROTEIN, TOTAL (test code = 2885-2) 7.0 g/dL ALBUMIN (test code = 1751-7) 4.5 g/dL GLOBULIN (test code = 88996-2) 2.5 g/dL(calc) ALBUMIN/GLOBULIN RATIO (test code = 1759-0) 1.8 (calc) BILIRUBIN, TOTAL (test code = 1975-2) 0.5 mg/dL ALKALINE PHOSPHATASE (test code = 6768-6) 79 U/L AST (test code = 1920-8) 23 U/L ALT (test code = 1742-6) 17 U/L Ricardo Madrid SobieskiRespiratory [id number] 00:00:00* Test Item Value Reference Range Interpretation Comme nts ADENOVIRUS (test code = 85022-5) Negative SARS-COV-2 (test code = 24636-2) Negative ENTEROVIRUS D68 (test code = 26995-5) Negative PARAINFLUENZA 1-3 (test code = ?72365-6) Negative BORDETELLA PARAPERTUSSIS (te st code = 15115-3) Negative ANTIBIOTIC RESISTANCE MECA ( test code = 32659-3J) Negative RHINOVIRUS/ENTEROVIRUS (test code = 7993-9) Negative BORDETELLA PERTUSSIS (test c ode = 35540-9) Negative CHLAMYDIA PNEUMONIAE (test c ode = 01875-3) Negative CORONAVIRUS (229E) (test cod e = 72527-4) Negative CORONAVIRUS (HKU1) (test cod e = 64789-4) Negative CORONAVIRUS (NL63) (test cod e = 62889-6) Negative CORONAVIRUS (OC43) (test cod e = 40110-4) Negative HAEMOPHILUS INFLUENZAE (test code = 78466-0) Negative HUMAN METAPNEUMOVIRUS A/B (t est code = 71600-0) Negative INFLUENZA A (test code = 98303-0) Positive INFLUENZA B (test code = 66302-8) Negative KLEBSIELLA PNEUMONIAE (test code = 00789-8W) Negative MORAXELLA CATARRHALIS (test code = 15182-8) Negative MYCOPLASMA PNEUMONIAE (test code = 94748-0) Negative RSV A/RSV B (test code = 77498-8T) Negative STAPHYLOCOCCUS AUREUS (test code = 50123-5K) Positive STREPTOCOCCUS PNEUMONIAE (te st code = 56183-5) Negative STREPTOCOCCUS PYOGENES (GROU P A) (test code = 750821-9) Negative Ricardo [id number] 00:00:00* Test Item Value Reference Range Interpretation Comme nts TSH (test code = 3016-3) 5.32 mIU/L Ricardo Madrid AustinCBC (INCLUDES DIFF/PLT)2024-04-10 00:00:00* Test Item Value Reference Range Interpretation Comme nts WHITE BLOOD CELL COUNT (test code = 6690-2) 4.6 Thousand/uL RED BLOOD CELL COUNT (test code = 789-8) 4.35 Million/uL HEMOGLOBIN (test code = 718-7) 13.4 g/dL HEMATOCRIT (test code = 4544-3) 39.8 % MCV (test code = 787-2) 91.5 fL MCH (test code = 785-6) 30.8 pg MCHC (test code = 786-4) 33.7 g/dL RDW (test code = 788-0) 12.2 % PLATELET COUNT (test code = 777-3) 195 Thousand/uL MPV (test code = 776-5) 10.3 fL ABSOLUTE NEUTROPHILS (test code = 751-8) 3372 cells/uL ABSOLUTE BAND NEUTROPHILS (test code = 83682-2) DNR cells/uL ABSOLUTE METAMYELOCYTES (chata t code = 14936-4) DNR cells/uL ABSOLUTE MYELOCYTES (test code = 36568-2) DNR cells/uL ABSOLUTE PROMYELOCYTES (test code = 21694-8) DNR cells/uL ABSOLUTE LYMPHOCYTES (test code = 731-0) 580 cells/uL ABSOLUTE MONOCYTES (test cod e = 742-7) 612 cells/uL ABSOLUTE EOSINOPHILS (test code = 711-2) 18 cells/uL ABSOLUTE BASOPHILS (test cod e = 704-7) 18 cells/uL ABSOLUTE BLASTS (test code = 16404-0) DNR cells/uL ABSOLUTE NUCLEATED RBC (test code = 63026-8) DNR cells/uL NEUTROPHILS (test code = 770-8) 73.3 % BAND NEUTROPHILS (test code = 764-1) DNR % METAMYELOCYTES (test code = 740-1) DNR % MYELOCYTES (test code = 749-2) DNR % PROMYELOCYTES (test code = 783-1) DNR % LYMPHOCYTES (test code = 736-9) 12.6 % REACTIVE LYMPHOCYTES (test code = 88452-5) DNR % MONOCYTES (test code = 5905-5) 13.3 % EOSINOPHILS (test code = 713-8) 0.4 % BASOPHILS (test code = 706-2) 0.4 % BLASTS (test code = 709-6) DNR % NUCLEATED RBC (test code = 85860-5) DNR /100WBC COMMENT(S) (test code = 8251-1) DNR Ricardo PenaHEMOGLOBIN [id number] 00:00:00* Test Item Value Reference Range Interpretation Comme nts HEMOGLOBIN A1c (test code = 4548-4) 5.4 %oftotalHgb Ricardo Madrid AustinLIPID [id number] 00:00:00* Test Item Value Reference Range Interpretation Comme nts CHOLESTEROL, TOTAL (test cod e = 2093-3) 179 mg/dL HDL CHOLESTEROL (test code = 2085-9) 61 mg/dL TRIGLYCERIDES (test code = 2571-8) 42 mg/dL LDL-CHOLESTEROL (test code = 45817-8) 106 mg/dL(calc) CHOL/HDLC RATIO (test code = 9830-1) 2.9 (calc) NON HDL CHOLESTEROL (test code = 91188-9) 118 mg/dL(calc) Ricardo PenaCOMPREHENSIVE METABOLIC [id number] 00:00:00* Test Item Value Reference Range Interpretation Comme nts GLUCOSE (test code = 2345-7) 88 mg/dL UREA NITROGEN (BUN) (test code = 3094-0) 18 mg/dL CREATININE (test code = 2160-0) 0.86 mg/dL EGFR (test code = 78650-3) 79 mL/min/1.73m2 BUN/CREATININE RATIO (test code = 3097-3) SEE NOTE: (calc) SODIUM (test code = 2951-2) 136 mmol/L POTASSIUM (test code = 2823-3) 4.1 mmol/L CHLORIDE (test code = 2075-0) 101 mmol/L CARBON DIOXIDE (test code = 2027-9) 23 mmol/L CALCIUM (test code = 56259-0) 8.9 mg/dL PROTEIN, TOTAL (test code = 2885-2) 7.0 g/dL ALBUMIN (test code = 1751-7) 4.5 g/dL GLOBULIN (test code = 26765-3) 2.5 g/dL(calc) ALBUMIN/GLOBULIN RATIO (test code = 1759-0) 1.8 (calc) BILIRUBIN, TOTAL (test code = 1975-2) 0.5 mg/dL ALKALINE PHOSPHATASE (test code = 6768-6) 79 U/L AST (test code = 1920-8) 23 U/L ALT (test code = 1742-6) 17 U/L Ricardo PenaRespiratory [id number] 00:00:00* Test Item Value Reference Range Interpretation Comme nts ADENOVIRUS (test code = 69732-0) Negative SARS-COV-2 (test code = 19516-3) Negative ENTEROVIRUS D68 (test code = 07762-2) Negative PARAINFLUENZA 1-3 (test code = ?85966-7) Negative BORDETELLA PARAPERTUSSIS (te st code = 91238-4) Negative ANTIBIOTIC RESISTANCE MECA ( test code = 11015-5P) Negative RHINOVIRUS/ENTEROVIRUS (test code = 7993-9) Negative BORDETELLA PERTUSSIS (test c ode = 56137-3) Negative CHLAMYDIA PNEUMONIAE (test c ode = 66627-9) Negative CORONAVIRUS (229E) (test cod e = 49473-1) Negative CORONAVIRUS (HKU1) (test cod e = 71321-3) Negative CORONAVIRUS (NL63) (test cod e = 15473-6) Negative CORONAVIRUS (OC43) (test cod e = 93139-2) Negative HAEMOPHILUS INFLUENZAE (test code = 43711-7) Negative HUMAN METAPNEUMOVIRUS A/B (t est code = 69708-5) Negative INFLUENZA A (test code = 98584-9) Positive INFLUENZA B (test code = 74891-0) Negative KLEBSIELLA PNEUMONIAE (test code = 36010-4A) Negative MORAXELLA CATARRHALIS (test code = 06838-4) Negative MYCOPLASMA PNEUMONIAE (test code = 21624-7) Negative RSV A/RSV B (test code = 68291-8K) Negative STAPHYLOCOCCUS AUREUS (test code = 71607-3X) Positive STREPTOCOCCUS PNEUMONIAE (te st code = 68978-7) Negative STREPTOCOCCUS PYOGENES (GROU P A) (test code = 482603-5) Negative Ricardo [id number] 00:00:00* Test Item Value Reference Range Interpretation Comme nts TSH (test code = 3016-3) 5.32 mIU/L Ricardo Madrid AustinCBC (INCLUDES DIFF/PLT)2024-04-10 00:00:00* Test Item Value Reference Range Interpretation Comme nts WHITE BLOOD CELL COUNT (test code = 6690-2) 4.6 Thousand/uL RED BLOOD CELL COUNT (test code = 789-8) 4.35 Million/uL HEMOGLOBIN (test code = 718-7) 13.4 g/dL HEMATOCRIT (test code = 4544-3) 39.8 % MCV (test code = 787-2) 91.5 fL MCH (test code = 785-6) 30.8 pg MCHC (test code = 786-4) 33.7 g/dL RDW (test code = 788-0) 12.2 % PLATELET COUNT (test code = 777-3) 195 Thousand/uL MPV (test code = 776-5) 10.3 fL ABSOLUTE NEUTROPHILS (test code = 751-8) 3372 cells/uL ABSOLUTE BAND NEUTROPHILS (test code = 72632-0) DNR cells/uL ABSOLUTE METAMYELOCYTES (chata t code = 61883-6) DNR cells/uL ABSOLUTE MYELOCYTES (test code = 26185-8) DNR cells/uL ABSOLUTE PROMYELOCYTES (test code = 29367-8) DNR cells/uL ABSOLUTE LYMPHOCYTES (test code = 731-0) 580 cells/uL ABSOLUTE MONOCYTES (test cod e = 742-7) 612 cells/uL ABSOLUTE EOSINOPHILS (test code = 711-2) 18 cells/uL ABSOLUTE BASOPHILS (test cod e = 704-7) 18 cells/uL ABSOLUTE BLASTS (test code = 39061-2) DNR cells/uL ABSOLUTE NUCLEATED RBC (test code = 62519-9) DNR cells/uL NEUTROPHILS (test code = 770-8) 73.3 % BAND NEUTROPHILS (test code = 764-1) DNR % METAMYELOCYTES (test code = 740-1) DNR % MYELOCYTES (test code = 749-2) DNR % PROMYELOCYTES (test code = 783-1) DNR % LYMPHOCYTES (test code = 736-9) 12.6 % REACTIVE LYMPHOCYTES (test code = 31499-7) DNR % MONOCYTES (test code = 5905-5) 13.3 % EOSINOPHILS (test code = 713-8) 0.4 % BASOPHILS (test code = 706-2) 0.4 % BLASTS (test code = 709-6) DNR % NUCLEATED RBC (test code = 49273-4) DNR /100WBC COMMENT(S) (test code = 8251-1) DNR Ricardo PenaHEMOGLOBIN [id number] 00:00:00* Test Item Value Reference Range Interpretation Comme nts HEMOGLOBIN A1c (test code = 4548-4) 5.4 %oftotalHgb Ricardo PenaLIPID [id number] 00:00:00* Test Item Value Reference Range Interpretation Comme nts CHOLESTEROL, TOTAL (test cod e = 2093-3) 179 mg/dL HDL CHOLESTEROL (test code = 2085-9) 61 mg/dL TRIGLYCERIDES (test code = 2571-8) 42 mg/dL LDL-CHOLESTEROL (test code = 36232-7) 106 mg/dL(calc) CHOL/HDLC RATIO (test code = 9830-1) 2.9 (calc) NON HDL CHOLESTEROL (test code = 75564-4) 118 mg/dL(calc) Ricardo PenaCOMPREHENSIVE METABOLIC [id number] 00:00:00* Test Item Value Reference Range Interpretation Comme nts GLUCOSE (test code = 2345-7) 88 mg/dL UREA NITROGEN (BUN) (test code = 3094-0) 18 mg/dL CREATININE (test code = 2160-0) 0.86 mg/dL EGFR (test code = 24669-5) 79 mL/min/1.73m2 BUN/CREATININE RATIO (test code = 3097-3) SEE NOTE: (calc) SODIUM (test code = 2951-2) 136 mmol/L POTASSIUM (test code = 2823-3) 4.1 mmol/L CHLORIDE (test code = 2075-0) 101 mmol/L CARBON DIOXIDE (test code = 2027-9) 23 mmol/L CALCIUM (test code = 76673-3) 8.9 mg/dL PROTEIN, TOTAL (test code = 2885-2) 7.0 g/dL ALBUMIN (test code = 1751-7) 4.5 g/dL GLOBULIN (test code = 12150-0) 2.5 g/dL(calc) ALBUMIN/GLOBULIN RATIO (test code = 1759-0) 1.8 (calc) BILIRUBIN, TOTAL (test code = 1975-2) 0.5 mg/dL ALKALINE PHOSPHATASE (test code = 6768-6) 79 U/L AST (test code = 1920-8) 23 U/L ALT (test code = 1742-6) 17 U/L Ricardo [id number] 00:00:00* Test Item Value Reference Range Interpretation Comme nts TSH (test code = 3016-3) 5.32 mIU/L Ricardo PenaRespiratory [id number] 00:00:00* Test Item Value Reference Range Interpretation Comme nts ADENOVIRUS (test code = 72528-7) Negative SARS-COV-2 (test code = 04896-1) Negative ENTEROVIRUS D68 (test code = 88579-3) Negative PARAINFLUENZA 1-3 (test code = ?13008-8) Negative BORDETELLA PARAPERTUSSIS (te st code = 69840-0) Negative ANTIBIOTIC RESISTANCE MECA ( test code = 12931-3B) Negative RHINOVIRUS/ENTEROVIRUS (test code = 7993-9) Negative BORDETELLA PERTUSSIS (test c ode = 81376-1) Negative CHLAMYDIA PNEUMONIAE (test c ode = 18477-9) Negative CORONAVIRUS (229E) (test cod e = 27667-3) Negative CORONAVIRUS (HKU1) (test cod e = 65649-7) Negative CORONAVIRUS (NL63) (test cod e = 39916-6) Negative CORONAVIRUS (OC43) (test cod e = 37304-2) Negative HAEMOPHILUS INFLUENZAE (test code = 52953-3) Negative HUMAN METAPNEUMOVIRUS A/B (t est code = 99014-8) Negative INFLUENZA A (test code = 05327-0) Positive INFLUENZA B (test code = 34430-4) Negative KLEBSIELLA PNEUMONIAE (test code = 62473-2C) Negative MORAXELLA CATARRHALIS (test code = 66192-6) Negative MYCOPLASMA PNEUMONIAE (test code = 38693-8) Negative RSV A/RSV B (test code = 07976-4V) Negative STAPHYLOCOCCUS AUREUS (test code = 64991-6Q) Positive STREPTOCOCCUS PNEUMONIAE (te st code = 22333-6) Negative STREPTOCOCCUS PYOGENES (GROU P A) (test code = 649014-9) Negative Ricardo Madrid AustinCBC (INCLUDES DIFF/PLT)2024-04-10 00:00:00* Test Item Value Reference Range Interpretation Comme nts WHITE BLOOD CELL COUNT (test code = 6690-2) 4.6 Thousand/uL RED BLOOD CELL COUNT (test code = 789-8) 4.35 Million/uL HEMOGLOBIN (test code = 718-7) 13.4 g/dL HEMATOCRIT (test code = 4544-3) 39.8 % MCV (test code = 787-2) 91.5 fL MCH (test code = 785-6) 30.8 pg MCHC (test code = 786-4) 33.7 g/dL RDW (test code = 788-0) 12.2 % PLATELET COUNT (test code = 777-3) 195 Thousand/uL MPV (test code = 776-5) 10.3 fL ABSOLUTE NEUTROPHILS (test code = 751-8) 3372 cells/uL ABSOLUTE BAND NEUTROPHILS (test code = 87815-6) DNR cells/uL ABSOLUTE METAMYELOCYTES (chata t code = 13427-9) DNR cells/uL ABSOLUTE MYELOCYTES (test code = 63233-8) DNR cells/uL ABSOLUTE PROMYELOCYTES (test code = 24552-0) DNR cells/uL ABSOLUTE LYMPHOCYTES (test code = 731-0) 580 cells/uL ABSOLUTE MONOCYTES (test cod e = 742-7) 612 cells/uL ABSOLUTE EOSINOPHILS (test code = 711-2) 18 cells/uL ABSOLUTE BASOPHILS (test cod e = 704-7) 18 cells/uL ABSOLUTE BLASTS (test code = 95203-7) DNR cells/uL ABSOLUTE NUCLEATED RBC (test code = 93677-9) DNR cells/uL NEUTROPHILS (test code = 770-8) 73.3 % BAND NEUTROPHILS (test code = 764-1) DNR % METAMYELOCYTES (test code = 740-1) DNR % MYELOCYTES (test code = 749-2) DNR % PROMYELOCYTES (test code = 783-1) DNR % LYMPHOCYTES (test code = 736-9) 12.6 % REACTIVE LYMPHOCYTES (test code = 41717-8) DNR % MONOCYTES (test code = 5905-5) 13.3 % EOSINOPHILS (test code = 713-8) 0.4 % BASOPHILS (test code = 706-2) 0.4 % BLASTS (test code = 709-6) DNR % NUCLEATED RBC (test code = 58925-5) DNR /100WBC COMMENT(S) (test code = 8251-1) DNR Ricardo PenaHEMOGLOBIN [id number] 00:00:00* Test Item Value Reference Range Interpretation Comme nts HEMOGLOBIN A1c (test code = 4548-4) 5.4 %oftotalHgb Ricardo Madrid AustinLIPID [id number] 00:00:00* Test Item Value Reference Range Interpretation Comme nts CHOLESTEROL, TOTAL (test cod e = 2093-3) 179 mg/dL HDL CHOLESTEROL (test code = 2085-9) 61 mg/dL TRIGLYCERIDES (test code = 2571-8) 42 mg/dL LDL-CHOLESTEROL (test code = 78001-1) 106 mg/dL(calc) CHOL/HDLC RATIO (test code = 9830-1) 2.9 (calc) NON HDL CHOLESTEROL (test code = 43966-6) 118 mg/dL(calc) Ricardo PenaCOMPREHENSIVE METABOLIC [id number] 00:00:00* Test Item Value Reference Range Interpretation Comme nts GLUCOSE (test code = 2345-7) 88 mg/dL UREA NITROGEN (BUN) (test code = 3094-0) 18 mg/dL CREATININE (test code = 2160-0) 0.86 mg/dL EGFR (test code = 94394-7) 79 mL/min/1.73m2 BUN/CREATININE RATIO (test code = 3097-3) SEE NOTE: (calc) SODIUM (test code = 2951-2) 136 mmol/L POTASSIUM (test code = 2823-3) 4.1 mmol/L CHLORIDE (test code = 2075-0) 101 mmol/L CARBON DIOXIDE (test code = 2027-9) 23 mmol/L CALCIUM (test code = 75760-0) 8.9 mg/dL PROTEIN, TOTAL (test code = 2885-2) 7.0 g/dL ALBUMIN (test code = 1751-7) 4.5 g/dL GLOBULIN (test code = 93143-0) 2.5 g/dL(calc) ALBUMIN/GLOBULIN RATIO (test code = 1759-0) 1.8 (calc) BILIRUBIN, TOTAL (test code = 1975-2) 0.5 mg/dL ALKALINE PHOSPHATASE (test code = 6768-6) 79 U/L AST (test code = 1920-8) 23 U/L ALT (test code = 1742-6) 17 U/L Ricardo PenaRespiratory [id number] 00:00:00* Test Item Value Reference Range Interpretation Comme nts ADENOVIRUS (test code = 98712-0) Negative SARS-COV-2 (test code = 89634-9) Negative ENTEROVIRUS D68 (test code = 89148-1) Negative PARAINFLUENZA 1-3 (test code = ?32439-4) Negative BORDETELLA PARAPERTUSSIS (te st code = 65402-1) Negative ANTIBIOTIC RESISTANCE MECA ( test code = 12974-5C) Negative RHINOVIRUS/ENTEROVIRUS (test code = 7993-9) Negative BORDETELLA PERTUSSIS (test c ode = 06004-6) Negative CHLAMYDIA PNEUMONIAE (test c ode = 37029-0) Negative CORONAVIRUS (229E) (test cod e = 38706-8) Negative CORONAVIRUS (HKU1) (test cod e = 59135-2) Negative CORONAVIRUS (NL63) (test cod e = 53194-4) Negative CORONAVIRUS (OC43) (test cod e = 89765-2) Negative HAEMOPHILUS INFLUENZAE (test code = 06370-3) Negative HUMAN METAPNEUMOVIRUS A/B (t est code = 06047-0) Negative INFLUENZA A (test code = 46037-7) Positive INFLUENZA B (test code = 81472-9) Negative KLEBSIELLA PNEUMONIAE (test code = 33124-7W) Negative MORAXELLA CATARRHALIS (test code = 49442-5) Negative MYCOPLASMA PNEUMONIAE (test code = 56191-1) Negative RSV A/RSV B (test code = 05013-6W) Negative STAPHYLOCOCCUS AUREUS (test code = 58346-9S) Positive STREPTOCOCCUS PNEUMONIAE (te st code = 57364-3) Negative STREPTOCOCCUS PYOGENES (GROU P A) (test code = 313153-0) Negative Ricardo [id number] 00:00:00* Test Item Value Reference Range Interpretation Comme nts TSH (test code = 3016-3) 5.32 mIU/L Ricardo PenaCBC (INCLUDES DIFF/PLT)2024-04-10 00:00:00* Test Item Value Reference Range Interpretation Comme nts WHITE BLOOD CELL COUNT (test code = 6690-2) 4.6 Thousand/uL RED BLOOD CELL COUNT (test code = 789-8) 4.35 Million/uL HEMOGLOBIN (test code = 718-7) 13.4 g/dL HEMATOCRIT (test code = 4544-3) 39.8 % MCV (test code = 787-2) 91.5 fL MCH (test code = 785-6) 30.8 pg MCHC (test code = 786-4) 33.7 g/dL RDW (test code = 788-0) 12.2 % PLATELET COUNT (test code = 777-3) 195 Thousand/uL MPV (test code = 776-5) 10.3 fL ABSOLUTE NEUTROPHILS (test code = 751-8) 3372 cells/uL ABSOLUTE BAND NEUTROPHILS (test code = 18296-6) DNR cells/uL ABSOLUTE METAMYELOCYTES (chata t code = 15368-9) DNR cells/uL ABSOLUTE MYELOCYTES (test code = 15976-4) DNR cells/uL ABSOLUTE PROMYELOCYTES (test code = 27707-9) DNR cells/uL ABSOLUTE LYMPHOCYTES (test code = 731-0) 580 cells/uL ABSOLUTE MONOCYTES (test cod e = 742-7) 612 cells/uL ABSOLUTE EOSINOPHILS (test code = 711-2) 18 cells/uL ABSOLUTE BASOPHILS (test cod e = 704-7) 18 cells/uL ABSOLUTE BLASTS (test code = 16312-1) DNR cells/uL ABSOLUTE NUCLEATED RBC (test code = 46911-2) DNR cells/uL NEUTROPHILS (test code = 770-8) 73.3 % BAND NEUTROPHILS (test code = 764-1) DNR % METAMYELOCYTES (test code = 740-1) DNR % MYELOCYTES (test code = 749-2) DNR % PROMYELOCYTES (test code = 783-1) DNR % LYMPHOCYTES (test code = 736-9) 12.6 % REACTIVE LYMPHOCYTES (test code = 36249-6) DNR % MONOCYTES (test code = 5905-5) 13.3 % EOSINOPHILS (test code = 713-8) 0.4 % BASOPHILS (test code = 706-2) 0.4 % BLASTS (test code = 709-6) DNR % NUCLEATED RBC (test code = 43286-4) DNR /100WBC COMMENT(S) (test code = 8251-1) DNR Ricardo PenaHEMOGLOBIN [id number] 00:00:00* Test Item Value Reference Range Interpretation Comme nts HEMOGLOBIN A1c (test code = 4548-4) 5.4 %oftotalHgb Ricardo Madrid AustinLIPID [id number] 00:00:00* Test Item Value Reference Range Interpretation Comme nts CHOLESTEROL, TOTAL (test cod e = 2093-3) 179 mg/dL HDL CHOLESTEROL (test code = 2085-9) 61 mg/dL TRIGLYCERIDES (test code = 2571-8) 42 mg/dL LDL-CHOLESTEROL (test code = 66790-7) 106 mg/dL(calc) CHOL/HDLC RATIO (test code = 9830-1) 2.9 (calc) NON HDL CHOLESTEROL (test code = 59033-6) 118 mg/dL(calc) Ricardo Madrid SobieskiCOMPREHENSIVE METABOLIC [id number] 00:00:00* Test Item Value Reference Range Interpretation Comme nts GLUCOSE (test code = 2345-7) 88 mg/dL UREA NITROGEN (BUN) (test code = 3094-0) 18 mg/dL CREATININE (test code = 2160-0) 0.86 mg/dL EGFR (test code = 94853-7) 79 mL/min/1.73m2 BUN/CREATININE RATIO (test code = 3097-3) SEE NOTE: (calc) SODIUM (test code = 2951-2) 136 mmol/L POTASSIUM (test code = 2823-3) 4.1 mmol/L CHLORIDE (test code = 2075-0) 101 mmol/L CARBON DIOXIDE (test code = 8-9) 23 mmol/L CALCIUM (test code = 00422-4) 8.9 mg/dL PROTEIN, TOTAL (test code = 2885-2) 7.0 g/dL ALBUMIN (test code = 1751-7) 4.5 g/dL GLOBULIN (test code = 20028-2) 2.5 g/dL(calc) ALBUMIN/GLOBULIN RATIO (test code = 1759-0) 1.8 (calc) BILIRUBIN, TOTAL (test code = 1975-2) 0.5 mg/dL ALKALINE PHOSPHATASE (test code = 6768-6) 79 U/L AST (test code = 1920-8) 23 U/L ALT (test code = 1742-6) 17 U/L Ricardo [id number] 00:00:00* Test Item Value Reference Range Interpretation Comme nts TSH (test code = 3016-3) 5.32 mIU/L Ricardo PenaRespiratory [id number] 00:00:00* Test Item Value Reference Range Interpretation Comme nts ADENOVIRUS (test code = 70113-2) Negative SARS-COV-2 (test code = 07096-5) Negative ENTEROVIRUS D68 (test code = 86192-5) Negative PARAINFLUENZA 1-3 (test code = ?23553-1) Negative BORDETELLA PARAPERTUSSIS (te st code = 54554-3) Negative ANTIBIOTIC RESISTANCE MECA ( test code = 91536-8X) Negative RHINOVIRUS/ENTEROVIRUS (test code = 7993-9) Negative BORDETELLA PERTUSSIS (test c ode = 11256-5) Negative CHLAMYDIA PNEUMONIAE (test c ode = 08862-0) Negative CORONAVIRUS (229E) (test cod e = 92815-8) Negative CORONAVIRUS (HKU1) (test cod e = 44336-2) Negative CORONAVIRUS (NL63) (test cod e = 16377-9) Negative CORONAVIRUS (OC43) (test cod e = 90531-0) Negative HAEMOPHILUS INFLUENZAE (test code = 78047-9) Negative HUMAN METAPNEUMOVIRUS A/B (t est code = 46712-7) Negative INFLUENZA A (test code = 89485-0) Positive INFLUENZA B (test code = 68592-3) Negative KLEBSIELLA PNEUMONIAE (test code = 09441-4E) Negative MORAXELLA CATARRHALIS (test code = 65203-4) Negative MYCOPLASMA PNEUMONIAE (test code = 40082-2) Negative RSV A/RSV B (test code = 89917-6V) Negative STAPHYLOCOCCUS AUREUS (test code = 23382-9T) Positive STREPTOCOCCUS PNEUMONIAE (te st code = 96124-8) Negative STREPTOCOCCUS PYOGENES (GROU P A) (test code = 871927-1) Negative Ricardo PenaCBC (INCLUDES DIFF/PLT)2024-04-10 00:00:00* Test Item Value Reference Range Interpretation Comme nts WHITE BLOOD CELL COUNT (test code = 6690-2) 4.6 Thousand/uL RED BLOOD CELL COUNT (test code = 789-8) 4.35 Million/uL HEMOGLOBIN (test code = 718-7) 13.4 g/dL HEMATOCRIT (test code = 4544-3) 39.8 % MCV (test code = 787-2) 91.5 fL MCH (test code = 785-6) 30.8 pg MCHC (test code = 786-4) 33.7 g/dL RDW (test code = 788-0) 12.2 % PLATELET COUNT (test code = 777-3) 195 Thousand/uL MPV (test code = 776-5) 10.3 fL ABSOLUTE NEUTROPHILS (test code = 751-8) 3372 cells/uL ABSOLUTE BAND NEUTROPHILS (test code = 74349-9) DNR cells/uL ABSOLUTE METAMYELOCYTES (chata t code = 21157-2) DNR cells/uL ABSOLUTE MYELOCYTES (test code = 95265-7) DNR cells/uL ABSOLUTE PROMYELOCYTES (test code = 66274-4) DNR cells/uL ABSOLUTE LYMPHOCYTES (test code = 731-0) 580 cells/uL ABSOLUTE MONOCYTES (test cod e = 742-7) 612 cells/uL ABSOLUTE EOSINOPHILS (test code = 711-2) 18 cells/uL ABSOLUTE BASOPHILS (test cod e = 704-7) 18 cells/uL ABSOLUTE BLASTS (test code = 19424-3) DNR cells/uL ABSOLUTE NUCLEATED RBC (test code = 37554-1) DNR cells/uL NEUTROPHILS (test code = 770-8) 73.3 % BAND NEUTROPHILS (test code = 764-1) DNR % METAMYELOCYTES (test code = 740-1) DNR % MYELOCYTES (test code = 749-2) DNR % PROMYELOCYTES (test code = 783-1) DNR % LYMPHOCYTES (test code = 736-9) 12.6 % REACTIVE LYMPHOCYTES (test code = 98066-6) DNR % MONOCYTES (test code = 5905-5) 13.3 % EOSINOPHILS (test code = 713-8) 0.4 % BASOPHILS (test code = 706-2) 0.4 % BLASTS (test code = 709-6) DNR % NUCLEATED RBC (test code = 17387-9) DNR /100WBC COMMENT(S) (test code = 8251-1) DNR Ricardo PenaHEMOGLOBIN [id number] 00:00:00* Test Item Value Reference Range Interpretation Comme nts HEMOGLOBIN A1c (test code = 4548-4) 5.4 %oftotalHgb Ricardo Madrid AustinLIPID [id number] 00:00:00* Test Item Value Reference Range Interpretation Comme nts CHOLESTEROL, TOTAL (test cod e = 2093-3) 179 mg/dL HDL CHOLESTEROL (test code = 2085-9) 61 mg/dL TRIGLYCERIDES (test code = 2571-8) 42 mg/dL LDL-CHOLESTEROL (test code = 99213-3) 106 mg/dL(calc) CHOL/HDLC RATIO (test code = 9830-1) 2.9 (calc) NON HDL CHOLESTEROL (test code = 48102-6) 118 mg/dL(calc) Ricardo Madrid AustinCOMPREHENSIVE METABOLIC [id number] 00:00:00* Test Item Value Reference Range Interpretation Comme nts GLUCOSE (test code = 2345-7) 88 mg/dL UREA NITROGEN (BUN) (test code = 3094-0) 18 mg/dL CREATININE (test code = 2160-0) 0.86 mg/dL EGFR (test code = 20354-5) 79 mL/min/1.73m2 BUN/CREATININE RATIO (test code = 3097-3) SEE NOTE: (calc) SODIUM (test code = 2951-2) 136 mmol/L POTASSIUM (test code = 2823-3) 4.1 mmol/L CHLORIDE (test code = 2075-0) 101 mmol/L CARBON DIOXIDE (test code = 2027-9) 23 mmol/L CALCIUM (test code = 88352-5) 8.9 mg/dL PROTEIN, TOTAL (test code = 2885-2) 7.0 g/dL ALBUMIN (test code = 1751-7) 4.5 g/dL GLOBULIN (test code = 46183-0) 2.5 g/dL(calc) ALBUMIN/GLOBULIN RATIO (test code = 1759-0) 1.8 (calc) BILIRUBIN, TOTAL (test code = 1975-2) 0.5 mg/dL ALKALINE PHOSPHATASE (test code = 6768-6) 79 U/L AST (test code = 1920-8) 23 U/L ALT (test code = 1742-6) 17 U/L Ricardo [id number] 00:00:00* Test Item Value Reference Range Interpretation Comme nts TSH (test code = 3016-3) 5.32 mIU/L Ricardo PenaRespiratory [id number] 00:00:00* Test Item Value Reference Range Interpretation Comme nts ADENOVIRUS (test code = 64757-0) Negative SARS-COV-2 (test code = 89348-5) Negative ENTEROVIRUS D68 (test code = 88594-9) Negative PARAINFLUENZA 1-3 (test code = ?17909-7) Negative BORDETELLA PARAPERTUSSIS (te st code = 76865-9) Negative ANTIBIOTIC RESISTANCE MECA ( test code = 28033-9O) Negative RHINOVIRUS/ENTEROVIRUS (test code = 7993-9) Negative BORDETELLA PERTUSSIS (test c ode = 20262-2) Negative CHLAMYDIA PNEUMONIAE (test c ode = 97628-6) Negative CORONAVIRUS (229E) (test cod e = 97325-0) Negative CORONAVIRUS (HKU1) (test cod e = 98717-6) Negative CORONAVIRUS (NL63) (test cod e = 81361-1) Negative CORONAVIRUS (OC43) (test cod e = 40274-4) Negative HAEMOPHILUS INFLUENZAE (test code = 19959-5) Negative HUMAN METAPNEUMOVIRUS A/B (t est code = 11732-6) Negative INFLUENZA A (test code = 51024-5) Positive INFLUENZA B (test code = 86130-4) Negative KLEBSIELLA PNEUMONIAE (test code = 71644-5S) Negative MORAXELLA CATARRHALIS (test code = 11387-2) Negative MYCOPLASMA PNEUMONIAE (test code = 66598-3) Negative RSV A/RSV B (test code = 32826-3I) Negative STAPHYLOCOCCUS AUREUS (test code = 03252-3J) Positive STREPTOCOCCUS PNEUMONIAE (te st code = 56837-0) Negative STREPTOCOCCUS PYOGENES (GROU P A) (test code = 254966-0) Negative Ricardo Madrid AustinCBC (INCLUDES DIFF/PLT)[id number] 00:00:00* Test Item Value Reference Range Interpretation Comme nts WHITE BLOOD CELL COUNT (test code = 6690-2) 4.6 Thousand/uL RED BLOOD CELL COUNT (test code = 789-8) 4.35 Million/uL HEMOGLOBIN (test code = 718-7) 13.4 g/dL HEMATOCRIT (test code = 4544-3) 39.8 % MCV (test code = 787-2) 91.5 fL MCH (test code = 785-6) 30.8 pg MCHC (test code = 786-4) 33.7 g/dL RDW (test code = 788-0) 12.2 % PLATELET COUNT (test code = 777-3) 195 Thousand/uL MPV (test code = 776-5) 10.3 fL ABSOLUTE NEUTROPHILS (test code = 751-8) 3372 cells/uL ABSOLUTE BAND NEUTROPHILS (test code = 19962-3) DNR cells/uL ABSOLUTE METAMYELOCYTES (chata t code = 86640-6) DNR cells/uL ABSOLUTE MYELOCYTES (test code = 66548-3) DNR cells/uL ABSOLUTE PROMYELOCYTES (test code = 47412-4) DNR cells/uL ABSOLUTE LYMPHOCYTES (test code = 731-0) 580 cells/uL ABSOLUTE MONOCYTES (test cod e = 742-7) 612 cells/uL ABSOLUTE EOSINOPHILS (test code = 711-2) 18 cells/uL ABSOLUTE BASOPHILS (test cod e = 704-7) 18 cells/uL ABSOLUTE BLASTS (test code = 58730-2) DNR cells/uL ABSOLUTE NUCLEATED RBC (test code = 09128-9) DNR cells/uL NEUTROPHILS (test code = 770-8) 73.3 % BAND NEUTROPHILS (test code = 764-1) DNR % METAMYELOCYTES (test code = 740-1) DNR % MYELOCYTES (test code = 749-2) DNR % PROMYELOCYTES (test code = 783-1) DNR % LYMPHOCYTES (test code = 736-9) 12.6 % REACTIVE LYMPHOCYTES (test code = 07096-1) DNR % MONOCYTES (test code = 5905-5) 13.3 % EOSINOPHILS (test code = 713-8) 0.4 % BASOPHILS (test code = 706-2) 0.4 % BLASTS (test code = 709-6) DNR % NUCLEATED RBC (test code = 18921-7) DNR /100WBC COMMENT(S) (test code = 8251-1) DNR Ricardo Madrid AustinHEMOGLOBIN [id number] 00:00:00* Test Item Value Reference Range Interpretation Comme nts HEMOGLOBIN A1c (test code = 4548-4) 5.4 %oftotalHgb Ricardo Madrid AustinLIPID [id number] 00:00:00* Test Item Value Reference Range Interpretation Comme nts CHOLESTEROL, TOTAL (test cod e = 2093-3) 179 mg/dL HDL CHOLESTEROL (test code = 2085-9) 61 mg/dL TRIGLYCERIDES (test code = 2571-8) 42 mg/dL LDL-CHOLESTEROL (test code = 80461-6) 106 mg/dL(calc) CHOL/HDLC RATIO (test code = 9830-1) 2.9 (calc) NON HDL CHOLESTEROL (test code = 94469-4) 118 mg/dL(calc) Ricardo Madrid AustinCOMPREHENSIVE METABOLIC [id number] 00:00:00* Test Item Value Reference Range Interpretation Comme nts GLUCOSE (test code = 2345-7) 88 mg/dL UREA NITROGEN (BUN) (test code = 3094-0) 18 mg/dL CREATININE (test code = 2160-0) 0.86 mg/dL EGFR (test code = 83432-5) 79 mL/min/1.73m2 BUN/CREATININE RATIO (test code = 3097-3) SEE NOTE: (calc) SODIUM (test code = 2951-2) 136 mmol/L POTASSIUM (test code = 2823-3) 4.1 mmol/L CHLORIDE (test code = 5-0) 101 mmol/L CARBON DIOXIDE (test code = 2027-9) 23 mmol/L CALCIUM (test code = 90984-6) 8.9 mg/dL PROTEIN, TOTAL (test code = 2885-2) 7.0 g/dL ALBUMIN (test code = 1751-7) 4.5 g/dL GLOBULIN (test code = 57815-8) 2.5 g/dL(calc) ALBUMIN/GLOBULIN RATIO (test code = 1759-0) 1.8 (calc) BILIRUBIN, TOTAL (test code = 1974-2) 0.5 mg/dL ALKALINE PHOSPHATASE (test code = 6768-6) 79 U/L AST (test code = 1920-8) 23 U/L ALT (test code = 1742-6) 17 U/L Ricardo Abrams THIRD [id number] 00:00:00* Test Item Value Reference Range Interpretation Comme nts TSH, THIRD GENERATION (test code = 2821) 13.800 UIU/ML Ricardo Abrams THIRD [id number] 00:00:00* Test Item Value Reference Range Interpretation Comme nts TSH, THIRD GENERATION (test code = 2821) 13.800 UIU/ML Ricardo Abrams, THIRD [id number] 00:00:00* Test Item Value Reference Range Interpretation Comme nts TSH, THIRD GENERATION (test code = 2821) 13.800 UIU/ML Ricardo Abrams, THIRD [id number] 00:00:00* Test Item Value Reference Range Interpretation Comme nts TSH, THIRD GENERATION (test code = 2821) 13.800 UIU/ML SANDY Ni [id number] 00:00:00* Test Item Value Reference Range Interpretation Comme nts TSH, THIRD GENERATION (test code = 2821) 13.800 UIU/ML Ricardo Abrams, THIRD [id number] 00:00:00* Test Item Value Reference Range Interpretation Comme nts TSH, THIRD GENERATION (test code = 2821) 13.800 UIU/ML Ricardo PenaTSH, THIRD [id number] 00:00:00* Test Item Value Reference Range Interpretation Comme nts TSH, THIRD GENERATION (test code = 2821) 13.800 UIU/ML Ricardo PenaCBC W/AUTO [id number] 00:00:00* Test Item Value Reference Range Interpretation Comme nts WBC (test code = 1001) 5.9 K/UL RBC (test code = 1002) 4.37 M/UL HEMOGLOBIN (test code = 1003) 13.5 G/DL HEMATOCRIT (test code = 1004) 40.1 % MCV (test code = 1005) 91.8 fL MCH (test code = 1006) 30.9 PG MCHC (test code = 1007) 33.7 G/DL RDW (test code = 1038) 12.7 % NEUTROPHILS (test code = 1008) 47.4 % LYMPHOCYTES (test code = 1010) 42.8 % MONOCYTES (test code = 1011) 8.3 % EOSINOPHILS (test code = 1012) 0.7 % BASOPHILS (test code = 1013) 0.5 % IMMATURE GRANULOCYTES (test code = 1036) 0.3 % NUCLEATED RBCS (test code = 1065) 0.0 /100WBC'S PLATELET COUNT (test code = 1015) 214 K/UL ABSOLUTE NEUTROPHILS (test c ode = 1066) 2.81 K/UL ABSOLUTE LYMPHOCYTES (test c ode = 1067) 2.54 K/UL ABSOLUTE MONOCYTES (test cod e = 1068) 0.49 K/UL ABSOLUTE EOSINOPHILS (test c ode = 1040) 0.04 K/UL ABSOLUTE BASOPHILS (test cod e = 1069) 0.03 K/UL ABS IMMATURE GRANULOCYTES (t est code = 1020) 0.02 K/UL ABS NUCLEATED RBCS (test cod e = 21103) 0.00 K/UL Ricardo PenaHEMOGLOBIN [id number] 00:00:00* Test Item Value Reference Range Interpretation Comme nts HEMOGLOBIN A1c (test code = 32859) 5.2 % Ricardo PenaLIPID [id number] 00:00:00* Test Item Value Reference Range Interpretation Comme nts CHOLESTEROL (test code = 2210) 195 MG/DL TRIGLYCERIDES (test code = 2232) 72 MG/DL HDL CHOLESTEROL (test code = 2220) 61 MG/DL CALC LDL CHOL (test code = 2237) 118 MG/DL RISK RATIO LDL/HDL (test cod e = 2238) 1.93 RATIO Ricardo PenaCOMPREHENSIVE METABOLIC [id number] 00:00:00* Test Item Value Reference Range Interpretation Comme nts GLUCOSE (test code = 2217) 88 MG/DL BUN (test code = 2208) 18 MG/DL CREATININE (test code = 2214) 1.07 MG/DL eGFR (2020 CKD-EPI) (test co de = 25990) 61 ML/MIN/1.73 CALC BUN/CREAT (test code = 2235) 17 RATIO SODIUM (test code = 2231) 138 MEQ/L POTASSIUM (test code = 2228) 3.7 MEQ/L CHLORIDE (test code = 2215) 101 MEQ/L CARBON DIOXIDE (test code = 2206) 24 MEQ/L CALCIUM (test code = 2209) 10.2 MG/DL PROTEIN, TOTAL (test code = 2229) 7.1 G/DL ALBUMIN (test code = 2201) 4.6 G/DL CALC GLOBULIN (test code = 2240) 2.5 G/DL CALC A/G RATIO (test code = 2234) 1.8 RATIO BILIRUBIN, TOTAL (test code = 2207) 0.2 MG/DL ALKALINE PHOSPHATASE (test code = 2204) 77 U/L AST (test code = 2218) 22 U/L ALT (test code = 2219) 16 U/L Ricardo aMdrid JeanCBC W/AUTO [id number] 00:00:00* Test Item Value Reference Range Interpretation Comme nts WBC (test code = 1001) 5.9 K/UL RBC (test code = 1002) 4.37 M/UL HEMOGLOBIN (test code = 1003) 13.5 G/DL HEMATOCRIT (test code = 1004) 40.1 % MCV (test code = 1005) 91.8 fL MCH (test code = 1006) 30.9 PG MCHC (test code = 1007) 33.7 G/DL RDW (test code = 1038) 12.7 % NEUTROPHILS (test code = 1008) 47.4 % LYMPHOCYTES (test code = 1010) 42.8 % MONOCYTES (test code = 1011) 8.3 % EOSINOPHILS (test code = 1012) 0.7 % BASOPHILS (test code = 1013) 0.5 % IMMATURE GRANULOCYTES (test code = 1036) 0.3 % NUCLEATED RBCS (test code = 1065) 0.0 /100WBC'S PLATELET COUNT (test code = 1015) 214 K/UL ABSOLUTE NEUTROPHILS (test c ode = 1066) 2.81 K/UL ABSOLUTE LYMPHOCYTES (test c ode = 1067) 2.54 K/UL ABSOLUTE MONOCYTES (test cod e = 1068) 0.49 K/UL ABSOLUTE EOSINOPHILS (test c ode = 1040) 0.04 K/UL ABSOLUTE BASOPHILS (test cod e = 1069) 0.03 K/UL ABS IMMATURE GRANULOCYTES (t est code = 1020) 0.02 K/UL ABS NUCLEATED RBCS (test cod e = 31578) 0.00 K/UL Ricardo PenaHEMOGLOBIN [id number] 00:00:00* Test Item Value Reference Range Interpretation Comme nts HEMOGLOBIN A1c (test code = 73222) 5.2 % Ricardo PenaLIPID [id number] 00:00:00* Test Item Value Reference Range Interpretation Comme nts CHOLESTEROL (test code = 2210) 195 MG/DL TRIGLYCERIDES (test code = 2232) 72 MG/DL HDL CHOLESTEROL (test code = 2220) 61 MG/DL CALC LDL CHOL (test code = 2237) 118 MG/DL RISK RATIO LDL/HDL (test cod e = 2238) 1.93 RATIO Ricardo PenaCOMPREHENSIVE METABOLIC [id number] 00:00:00* Test Item Value Reference Range Interpretation Comme nts GLUCOSE (test code = 2217) 88 MG/DL BUN (test code = 2208) 18 MG/DL CREATININE (test code = 2214) 1.07 MG/DL eGFR (2020 CKD-EPI) (test co de = 04770) 61 ML/MIN/1.73 CALC BUN/CREAT (test code = 2235) 17 RATIO SODIUM (test code = 2231) 138 MEQ/L POTASSIUM (test code = 2228) 3.7 MEQ/L CHLORIDE (test code = 2215) 101 MEQ/L CARBON DIOXIDE (test code = 2206) 24 MEQ/L CALCIUM (test code = 2209) 10.2 MG/DL PROTEIN, TOTAL (test code = 2229) 7.1 G/DL ALBUMIN (test code = 2201) 4.6 G/DL CALC GLOBULIN (test code = 2240) 2.5 G/DL CALC A/G RATIO (test code = 2234) 1.8 RATIO BILIRUBIN, TOTAL (test code = 2207) 0.2 MG/DL ALKALINE PHOSPHATASE (test code = 2204) 77 U/L AST (test code = 2218) 22 U/L ALT (test code = 2219) 16 U/L Ricardo PenaCBC W/AUTO [id number] 00:00:00* Test Item Value Reference Range Interpretation Comme nts WBC (test code = 1001) 5.9 K/UL RBC (test code = 1002) 4.37 M/UL HEMOGLOBIN (test code = 1003) 13.5 G/DL HEMATOCRIT (test code = 1004) 40.1 % MCV (test code = 1005) 91.8 fL MCH (test code = 1006) 30.9 PG MCHC (test code = 1007) 33.7 G/DL RDW (test code = 1038) 12.7 % NEUTROPHILS (test code = 1008) 47.4 % LYMPHOCYTES (test code = 1010) 42.8 % MONOCYTES (test code = 1011) 8.3 % EOSINOPHILS (test code = 1012) 0.7 % BASOPHILS (test code = 1013) 0.5 % IMMATURE GRANULOCYTES (test code = 1036) 0.3 % NUCLEATED RBCS (test code = 1065) 0.0 /100WBC'S PLATELET COUNT (test code = 1015) 214 K/UL ABSOLUTE NEUTROPHILS (test c ode = 1066) 2.81 K/UL ABSOLUTE LYMPHOCYTES (test c ode = 1067) 2.54 K/UL ABSOLUTE MONOCYTES (test cod e = 1068) 0.49 K/UL ABSOLUTE EOSINOPHILS (test c ode = 1040) 0.04 K/UL ABSOLUTE BASOPHILS (test cod e = 1069) 0.03 K/UL ABS IMMATURE GRANULOCYTES (t est code = 1020) 0.02 K/UL ABS NUCLEATED RBCS (test cod e = 69067) 0.00 K/UL Ricardo Julius JeanHEMOGLOBIN [id number] 00:00:00* Test Item Value Reference Range Interpretation Comme nts HEMOGLOBIN A1c (test code = 77922) 5.2 % Ricardo PenaLIPID [id number] 00:00:00* Test Item Value Reference Range Interpretation Comme nts CHOLESTEROL (test code = 2210) 195 MG/DL TRIGLYCERIDES (test code = 2232) 72 MG/DL HDL CHOLESTEROL (test code = 2220) 61 MG/DL CALC LDL CHOL (test code = 2237) 118 MG/DL RISK RATIO LDL/HDL (test cod e = 2238) 1.93 RATIO Ricardo PenaCOMPREHENSIVE METABOLIC [id number] 00:00:00* Test Item Value Reference Range Interpretation Comme nts GLUCOSE (test code = 2217) 88 MG/DL BUN (test code = 2208) 18 MG/DL CREATININE (test code = 2214) 1.07 MG/DL eGFR (2020 CKD-EPI) (test co de = 31510) 61 ML/MIN/1.73 CALC BUN/CREAT (test code = 2235) 17 RATIO SODIUM (test code = 2231) 138 MEQ/L POTASSIUM (test code = 2228) 3.7 MEQ/L CHLORIDE (test code = 2215) 101 MEQ/L CARBON DIOXIDE (test code = 2206) 24 MEQ/L CALCIUM (test code = 2209) 10.2 MG/DL PROTEIN, TOTAL (test code = 2229) 7.1 G/DL ALBUMIN (test code = 2201) 4.6 G/DL CALC GLOBULIN (test code = 2240) 2.5 G/DL CALC A/G RATIO (test code = 2234) 1.8 RATIO BILIRUBIN, TOTAL (test code = 2207) 0.2 MG/DL ALKALINE PHOSPHATASE (test code = 2204) 77 U/L AST (test code = 2218) 22 U/L ALT (test code = 2219) 16 U/L Ricardo PenaCBC W/AUTO [id number] 00:00:00* Test Item Value Reference Range Interpretation Comme nts WBC (test code = 1001) 5.9 K/UL RBC (test code = 1002) 4.37 M/UL HEMOGLOBIN (test code = 1003) 13.5 G/DL HEMATOCRIT (test code = 1004) 40.1 % MCV (test code = 1005) 91.8 fL MCH (test code = 1006) 30.9 PG MCHC (test code = 1007) 33.7 G/DL RDW (test code = 1038) 12.7 % NEUTROPHILS (test code = 1008) 47.4 % LYMPHOCYTES (test code = 1010) 42.8 % MONOCYTES (test code = 1011) 8.3 % EOSINOPHILS (test code = 1012) 0.7 % BASOPHILS (test code = 1013) 0.5 % IMMATURE GRANULOCYTES (test code = 1036) 0.3 % NUCLEATED RBCS (test code = 1065) 0.0 /100WBC'S PLATELET COUNT (test code = 1015) 214 K/UL ABSOLUTE NEUTROPHILS (test c ode = 1066) 2.81 K/UL ABSOLUTE LYMPHOCYTES (test c ode = 1067) 2.54 K/UL ABSOLUTE MONOCYTES (test cod e = 1068) 0.49 K/UL ABSOLUTE EOSINOPHILS (test c ode = 1040) 0.04 K/UL ABSOLUTE BASOPHILS (test cod e = 1069) 0.03 K/UL ABS IMMATURE GRANULOCYTES (t est code = 1020) 0.02 K/UL ABS NUCLEATED RBCS (test cod e = 58940) 0.00 K/UL Ricardo PenaHEMOGLOBIN [id number] 00:00:00* Test Item Value Reference Range Interpretation Comme nts HEMOGLOBIN A1c (test code = 79775) 5.2 % Ricardo PenaLIPID [id number] 00:00:00* Test Item Value Reference Range Interpretation Comme nts CHOLESTEROL (test code = 2210) 195 MG/DL TRIGLYCERIDES (test code = 2232) 72 MG/DL HDL CHOLESTEROL (test code = 2220) 61 MG/DL CALC LDL CHOL (test code = 2237) 118 MG/DL RISK RATIO LDL/HDL (test cod e = 2238) 1.93 RATIO Ricardo PenaCOMPREHENSIVE METABOLIC [id number] 00:00:00* Test Item Value Reference Range Interpretation Comme nts GLUCOSE (test code = 2217) 88 MG/DL BUN (test code = 2208) 18 MG/DL CREATININE (test code = 2214) 1.07 MG/DL eGFR (2020 CKD-EPI) (test co de = 95179) 61 ML/MIN/1.73 CALC BUN/CREAT (test code = 2235) 17 RATIO SODIUM (test code = 2231) 138 MEQ/L POTASSIUM (test code = 2228) 3.7 MEQ/L CHLORIDE (test code = 2215) 101 MEQ/L CARBON DIOXIDE (test code = 2206) 24 MEQ/L CALCIUM (test code = 2209) 10.2 MG/DL PROTEIN, TOTAL (test code = 2229) 7.1 G/DL ALBUMIN (test code = 2201) 4.6 G/DL CALC GLOBULIN (test code = 2240) 2.5 G/DL CALC A/G RATIO (test code = 2234) 1.8 RATIO BILIRUBIN, TOTAL (test code = 2207) 0.2 MG/DL ALKALINE PHOSPHATASE (test code = 2204) 77 U/L AST (test code = 2218) 22 U/L ALT (test code = 2219) 16 U/L [facility] [id number] 00:00:00* Test Item Value Reference Range Interpretation Comme nts WBC (test code = 1001) 5.9 K/UL RBC (test code = 1002) 4.37 M/UL HEMOGLOBIN (test code = 1003) 13.5 G/DL HEMATOCRIT (test code = 1004) 40.1 % MCV (test code = 1005) 91.8 fL MCH (test code = 1006) 30.9 PG MCHC (test code = 1007) 33.7 G/DL RDW (test code = 1038) 12.7 % NEUTROPHILS (test code = 1008) 47.4 % LYMPHOCYTES (test code = 1010) 42.8 % MONOCYTES (test code = 1011) 8.3 % EOSINOPHILS (test code = 1012) 0.7 % BASOPHILS (test code = 1013) 0.5 % IMMATURE GRANULOCYTES (test code = 1036) 0.3 % NUCLEATED RBCS (test code = 1065) 0.0 /100WBC'S PLATELET COUNT (test code = 1015) 214 K/UL ABSOLUTE NEUTROPHILS (test c ode = 1066) 2.81 K/UL ABSOLUTE LYMPHOCYTES (test c ode = 1067) 2.54 K/UL ABSOLUTE MONOCYTES (test cod e = 1068) 0.49 K/UL ABSOLUTE EOSINOPHILS (test c ode = 1040) 0.04 K/UL ABSOLUTE BASOPHILS (test cod e = 1069) 0.03 K/UL ABS IMMATURE GRANULOCYTES (t est code = 1020) 0.02 K/UL ABS NUCLEATED RBCS (test cod e = 55601) 0.00 K/UL Ricardo PenaHEMOGLOBIN [id number] 00:00:00* Test Item Value Reference Range Interpretation Comme nts HEMOGLOBIN A1c (test code = 61346) 5.2 % Ricardo PenaLIPID [id number] 00:00:00* Test Item Value Reference Range Interpretation Comme nts CHOLESTEROL (test code = 2210) 195 MG/DL TRIGLYCERIDES (test code = 2232) 72 MG/DL HDL CHOLESTEROL (test code = 2220) 61 MG/DL CALC LDL CHOL (test code = 2237) 118 MG/DL RISK RATIO LDL/HDL (test cod e = 2238) 1.93 RATIO Ricardo PenaCOMPREHENSIVE METABOLIC [id number] 00:00:00* Test Item Value Reference Range Interpretation Comme nts GLUCOSE (test code = 2217) 88 MG/DL BUN (test code = 2208) 18 MG/DL CREATININE (test code = 2214) 1.07 MG/DL eGFR (2020 CKD-EPI) (test co de = 63135) 61 ML/MIN/1.73 CALC BUN/CREAT (test code = 2235) 17 RATIO SODIUM (test code = 2231) 138 MEQ/L POTASSIUM (test code = 2228) 3.7 MEQ/L CHLORIDE (test code = 2215) 101 MEQ/L CARBON DIOXIDE (test code = 2206) 24 MEQ/L CALCIUM (test code = 2209) 10.2 MG/DL PROTEIN, TOTAL (test code = 2229) 7.1 G/DL ALBUMIN (test code = 2201) 4.6 G/DL CALC GLOBULIN (test code = 2240) 2.5 G/DL CALC A/G RATIO (test code = 2234) 1.8 RATIO BILIRUBIN, TOTAL (test code = 2207) 0.2 MG/DL ALKALINE PHOSPHATASE (test code = 2204) 77 U/L AST (test code = 2218) 22 U/L ALT (test code = 2219) 16 U/L Ricardo PenaCBC W/AUTO [id number] 00:00:00* Test Item Value Reference Range Interpretation Comme nts WBC (test code = 1001) 5.9 K/UL RBC (test code = 1002) 4.37 M/UL HEMOGLOBIN (test code = 1003) 13.5 G/DL HEMATOCRIT (test code = 1004) 40.1 % MCV (test code = 1005) 91.8 fL MCH (test code = 1006) 30.9 PG MCHC (test code = 1007) 33.7 G/DL RDW (test code = 1038) 12.7 % NEUTROPHILS (test code = 1008) 47.4 % LYMPHOCYTES (test code = 1010) 42.8 % MONOCYTES (test code = 1011) 8.3 % EOSINOPHILS (test code = 1012) 0.7 % BASOPHILS (test code = 1013) 0.5 % IMMATURE GRANULOCYTES (test code = 1036) 0.3 % NUCLEATED RBCS (test code = 1065) 0.0 /100WBC'S PLATELET COUNT (test code = 1015) 214 K/UL ABSOLUTE NEUTROPHILS (test c ode = 1066) 2.81 K/UL ABSOLUTE LYMPHOCYTES (test c ode = 1067) 2.54 K/UL ABSOLUTE MONOCYTES (test cod e = 1068) 0.49 K/UL ABSOLUTE EOSINOPHILS (test c ode = 1040) 0.04 K/UL ABSOLUTE BASOPHILS (test cod e = 1069) 0.03 K/UL ABS IMMATURE GRANULOCYTES (t est code = 1020) 0.02 K/UL ABS NUCLEATED RBCS (test cod e = 95364) 0.00 K/UL Ricardo PenaHEMOGLOBIN [id number] 00:00:00* Test Item Value Reference Range Interpretation Comme nts HEMOGLOBIN A1c (test code = 83040) 5.2 % Ricardo PenaLIPID [id number] 00:00:00* Test Item Value Reference Range Interpretation Comme nts CHOLESTEROL (test code = 2210) 195 MG/DL TRIGLYCERIDES (test code = 2232) 72 MG/DL HDL CHOLESTEROL (test code = 2220) 61 MG/DL CALC LDL CHOL (test code = 2237) 118 MG/DL RISK RATIO LDL/HDL (test cod e = 2238) 1.93 RATIO Ricardo PenaCOMPREHENSIVE METABOLIC [id number] 00:00:00* Test Item Value Reference Range Interpretation Comme nts GLUCOSE (test code = 2217) 88 MG/DL BUN (test code = 2208) 18 MG/DL CREATININE (test code = 2214) 1.07 MG/DL eGFR (2020 CKD-EPI) (test co de = 08078) 61 ML/MIN/1.73 CALC BUN/CREAT (test code = 2235) 17 RATIO SODIUM (test code = 2231) 138 MEQ/L POTASSIUM (test code = 2228) 3.7 MEQ/L CHLORIDE (test code = 2215) 101 MEQ/L CARBON DIOXIDE (test code = 2206) 24 MEQ/L CALCIUM (test code = 2209) 10.2 MG/DL PROTEIN, TOTAL (test code = 2229) 7.1 G/DL ALBUMIN (test code = 2201) 4.6 G/DL CALC GLOBULIN (test code = 2240) 2.5 G/DL CALC A/G RATIO (test code = 2234) 1.8 RATIO BILIRUBIN, TOTAL (test code = 2207) 0.2 MG/DL ALKALINE PHOSPHATASE (test code = 2204) 77 U/L AST (test code = 2218) 22 U/L ALT (test code = 2219) 16 U/L [facility] [id number] 00:00:00* Test Item Value Reference Range Interpretation Comme nts WBC (test code = 1001) 5.9 K/UL RBC (test code = 1002) 4.37 M/UL HEMOGLOBIN (test code = 1003) 13.5 G/DL HEMATOCRIT (test code = 1004) 40.1 % MCV (test code = 1005) 91.8 fL MCH (test code = 1006) 30.9 PG MCHC (test code = 1007) 33.7 G/DL RDW (test code = 1038) 12.7 % NEUTROPHILS (test code = 1008) 47.4 % LYMPHOCYTES (test code = 1010) 42.8 % MONOCYTES (test code = 1011) 8.3 % EOSINOPHILS (test code = 1012) 0.7 % BASOPHILS (test code = 1013) 0.5 % IMMATURE GRANULOCYTES (test code = 1036) 0.3 % NUCLEATED RBCS (test code = 1065) 0.0 /100WBC'S PLATELET COUNT (test code = 1015) 214 K/UL ABSOLUTE NEUTROPHILS (test c ode = 1066) 2.81 K/UL ABSOLUTE LYMPHOCYTES (test c ode = 1067) 2.54 K/UL ABSOLUTE MONOCYTES (test cod e = 1068) 0.49 K/UL ABSOLUTE EOSINOPHILS (test c ode = 1040) 0.04 K/UL ABSOLUTE BASOPHILS (test cod e = 1069) 0.03 K/UL ABS IMMATURE GRANULOCYTES (t est code = 1020) 0.02 K/UL ABS NUCLEATED RBCS (test cod e = 29052) 0.00 K/UL Ricardo PenaHEMOGLOBIN [id number] 00:00:00* Test Item Value Reference Range Interpretation Comme nts HEMOGLOBIN A1c (test code = 74370) 5.2 % Ricardo PenaLIPID [id number] 00:00:00* Test Item Value Reference Range Interpretation Comme nts CHOLESTEROL (test code = 2210) 195 MG/DL TRIGLYCERIDES (test code = 2232) 72 MG/DL HDL CHOLESTEROL (test code = 2220) 61 MG/DL CALC LDL CHOL (test code = 2237) 118 MG/DL RISK RATIO LDL/HDL (test cod e = 2238) 1.93 RATIO Ricardo PenaCOMPREHENSIVE METABOLIC [id number] 00:00:00* Test Item Value Reference Range Interpretation Comme nts GLUCOSE (test code = 2217) 88 MG/DL BUN (test code = 2208) 18 MG/DL CREATININE (test code = 2214) 1.07 MG/DL eGFR (2020 CKD-EPI) (test co de = 69132) 61 ML/MIN/1.73 CALC BUN/CREAT (test code = 2235) 17 RATIO SODIUM (test code = 2231) 138 MEQ/L POTASSIUM (test code = 2228) 3.7 MEQ/L CHLORIDE (test code = 2215) 101 MEQ/L CARBON DIOXIDE (test code = 2206) 24 MEQ/L CALCIUM (test code = 2209) 10.2 MG/DL PROTEIN, TOTAL (test code = 2229) 7.1 G/DL ALBUMIN (test code = 2201) 4.6 G/DL CALC GLOBULIN (test code = 2240) 2.5 G/DL CALC A/G RATIO (test code = 2234) 1.8 RATIO BILIRUBIN, TOTAL (test code = 2207) 0.2 MG/DL ALKALINE PHOSPHATASE (test code = 2204) 77 U/L AST (test code = 2218) 22 U/L ALT (test code = 2219) 16 U/L Ricardo PenaCBC W/AUTO [id number] 00:00:00* Test Item Value Reference Range Interpretation Comme nts WBC (test code = 1001) 6.8 K/UL RBC (test code = 1002) 4.50 M/UL HEMOGLOBIN (test code = 1003) 14.2 G/DL HEMATOCRIT (test code = 1004) 40.5 % MCV (test code = 1005) 90.0 fL MCH (test code = 1006) 31.6 PG MCHC (test code = 1007) 35.1 G/DL RDW (test code = 1038) 12.5 % NEUTROPHILS (test code = 1008) 64.7 % LYMPHOCYTES (test code = 1010) 25.6 % MONOCYTES (test code = 1011) 8.4 % EOSINOPHILS (test code = 1012) 0.6 % BASOPHILS (test code = 1013) 0.4 % IMMATURE GRANULOCYTES (test code = 1036) 0.3 % NUCLEATED RBCS (test code = 1065) 0.0 /100WBC'S PLATELET COUNT (test code = 1015) 234 K/UL ABSOLUTE NEUTROPHILS (test c ode = 1066) 4.39 K/UL ABSOLUTE LYMPHOCYTES (test c ode = 1067) 1.74 K/UL ABSOLUTE MONOCYTES (test cod e = 1068) 0.57 K/UL ABSOLUTE EOSINOPHILS (test c ode = 1040) 0.04 K/UL ABSOLUTE BASOPHILS (test cod e = 1069) 0.03 K/UL ABS IMMATURE GRANULOCYTES (t est code = 1020) 0.02 K/UL ABS NUCLEATED RBCS (test cod e = 77445) 0.00 K/UL Ricardo PenaLIPID [id number] 00:00:00* Test Item Value Reference Range Interpretation Comme nts CHOLESTEROL (test code = 2210) 192 MG/DL TRIGLYCERIDES (test code = 2232) 73 MG/DL HDL CHOLESTEROL (test code = 2220) 60 MG/DL CALC LDL CHOL (test code = 2237) 115 MG/DL RISK RATIO LDL/HDL (test cod e = 2238) 1.92 RATIO Ricardo PenaCOMPREHENSIVE METABOLIC [id number] 00:00:00* Test Item Value Reference Range Interpretation Comme nts GLUCOSE (test code = 2217) 76 MG/DL BUN (test code = 2208) 15 MG/DL CREATININE (test code = 2214) 1.08 MG/DL eGFR (2020 CKD-EPI) (test co de = 66215) 61 ML/MIN/1.73 CALC BUN/CREAT (test code = 2235) 14 RATIO SODIUM (test code = 2231) 144 MEQ/L POTASSIUM (test code = 2228) 4.2 MEQ/L CHLORIDE (test code = 2215) 104 MEQ/L CARBON DIOXIDE (test code = 2206) 29 MEQ/L CALCIUM (test code = 2209) 10.0 MG/DL PROTEIN, TOTAL (test code = 2229) 7.1 G/DL ALBUMIN (test code = 2201) 4.6 G/DL CALC GLOBULIN (test code = 2240) 2.5 G/DL CALC A/G RATIO (test code = 2234) 1.8 RATIO BILIRUBIN, TOTAL (test code = 2207) 0.3 MG/DL ALKALINE PHOSPHATASE (test code = 2204) 67 U/L AST (test code = 2218) 25 U/L ALT (test code = 2219) 25 U/L Ricardo SpainH, THIRD [id number] 00:00:00* Test Item Value Reference Range Interpretation Comme nts TSH, THIRD GENERATION (test code = 2821) 2.100 UIU/ML Ricardo PenaCBC W/AUTO [id number] 00:00:00* Test Item Value Reference Range Interpretation Comme nts WBC (test code = 1001) 6.8 K/UL RBC (test code = 1002) 4.50 M/UL HEMOGLOBIN (test code = 1003) 14.2 G/DL HEMATOCRIT (test code = 1004) 40.5 % MCV (test code = 1005) 90.0 fL MCH (test code = 1006) 31.6 PG MCHC (test code = 1007) 35.1 G/DL RDW (test code = 1038) 12.5 % NEUTROPHILS (test code = 1008) 64.7 % LYMPHOCYTES (test code = 1010) 25.6 % MONOCYTES (test code = 1011) 8.4 % EOSINOPHILS (test code = 1012) 0.6 % BASOPHILS (test code = 1013) 0.4 % IMMATURE GRANULOCYTES (test code = 1036) 0.3 % NUCLEATED RBCS (test code = 1065) 0.0 /100WBC'S PLATELET COUNT (test code = 1015) 234 K/UL ABSOLUTE NEUTROPHILS (test c ode = 1066) 4.39 K/UL ABSOLUTE LYMPHOCYTES (test c ode = 1067) 1.74 K/UL ABSOLUTE MONOCYTES (test cod e = 1068) 0.57 K/UL ABSOLUTE EOSINOPHILS (test c ode = 1040) 0.04 K/UL ABSOLUTE BASOPHILS (test cod e = 1069) 0.03 K/UL ABS IMMATURE GRANULOCYTES (t est code = 1020) 0.02 K/UL ABS NUCLEATED RBCS (test cod e = 60148) 0.00 K/UL Ricardo Madrid AustinLIPID [id number] 00:00:00* Test Item Value Reference Range Interpretation Comme nts CHOLESTEROL (test code = 2210) 192 MG/DL TRIGLYCERIDES (test code = 2232) 73 MG/DL HDL CHOLESTEROL (test code = 2220) 60 MG/DL CALC LDL CHOL (test code = 2237) 115 MG/DL RISK RATIO LDL/HDL (test cod e = 2238) 1.92 RATIO Ricardo PenaCOMPREHENSIVE METABOLIC [id number] 00:00:00* Test Item Value Reference Range Interpretation Comme nts GLUCOSE (test code = 2217) 76 MG/DL BUN (test code = 2208) 15 MG/DL CREATININE (test code = 2214) 1.08 MG/DL eGFR (2020 CKD-EPI) (test co de = 70116) 61 ML/MIN/1.73 CALC BUN/CREAT (test code = 2235) 14 RATIO SODIUM (test code = 2231) 144 MEQ/L POTASSIUM (test code = 2228) 4.2 MEQ/L CHLORIDE (test code = 2215) 104 MEQ/L CARBON DIOXIDE (test code = 2206) 29 MEQ/L CALCIUM (test code = 2209) 10.0 MG/DL PROTEIN, TOTAL (test code = 2229) 7.1 G/DL ALBUMIN (test code = 2201) 4.6 G/DL CALC GLOBULIN (test code = 2240) 2.5 G/DL CALC A/G RATIO (test code = 2234) 1.8 RATIO BILIRUBIN, TOTAL (test code = 2207) 0.3 MG/DL ALKALINE PHOSPHATASE (test code = 2204) 67 U/L AST (test code = 2218) 25 U/L ALT (test code = 2219) 25 U/L Ricardo Abrams, THIRD [id number] 00:00:00* Test Item Value Reference Range Interpretation Comme nts TSH, THIRD GENERATION (test code = 2821) 2.100 UIU/ML Ricardo PenaCBC W/AUTO [id number] 00:00:00* Test Item Value Reference Range Interpretation Comme nts WBC (test code = 1001) 6.8 K/UL RBC (test code = 1002) 4.50 M/UL HEMOGLOBIN (test code = 1003) 14.2 G/DL HEMATOCRIT (test code = 1004) 40.5 % MCV (test code = 1005) 90.0 fL MCH (test code = 1006) 31.6 PG MCHC (test code = 1007) 35.1 G/DL RDW (test code = 1038) 12.5 % NEUTROPHILS (test code = 1008) 64.7 % LYMPHOCYTES (test code = 1010) 25.6 % MONOCYTES (test code = 1011) 8.4 % EOSINOPHILS (test code = 1012) 0.6 % BASOPHILS (test code = 1013) 0.4 % IMMATURE GRANULOCYTES (test code = 1036) 0.3 % NUCLEATED RBCS (test code = 1065) 0.0 /100WBC'S PLATELET COUNT (test code = 1015) 234 K/UL ABSOLUTE NEUTROPHILS (test c ode = 1066) 4.39 K/UL ABSOLUTE LYMPHOCYTES (test c ode = 1067) 1.74 K/UL ABSOLUTE MONOCYTES (test cod e = 1068) 0.57 K/UL ABSOLUTE EOSINOPHILS (test c ode = 1040) 0.04 K/UL ABSOLUTE BASOPHILS (test cod e = 1069) 0.03 K/UL ABS IMMATURE GRANULOCYTES (t est code = 1020) 0.02 K/UL ABS NUCLEATED RBCS (test cod e = 15480) 0.00 K/UL Ricardo PenaLIPID [id number] 00:00:00* Test Item Value Reference Range Interpretation Comme nts CHOLESTEROL (test code = 2210) 192 MG/DL TRIGLYCERIDES (test code = 2232) 73 MG/DL HDL CHOLESTEROL (test code = 2220) 60 MG/DL CALC LDL CHOL (test code = 2237) 115 MG/DL RISK RATIO LDL/HDL (test cod e = 2238) 1.92 RATIO Ricardo PenaCOMPREHENSIVE METABOLIC [id number] 00:00:00* Test Item Value Reference Range Interpretation Comme nts GLUCOSE (test code = 2217) 76 MG/DL BUN (test code = 2208) 15 MG/DL CREATININE (test code = 2214) 1.08 MG/DL eGFR (2020 CKD-EPI) (test co de = 53559) 61 ML/MIN/1.73 CALC BUN/CREAT (test code = 2235) 14 RATIO SODIUM (test code = 2231) 144 MEQ/L POTASSIUM (test code = 2228) 4.2 MEQ/L CHLORIDE (test code = 2215) 104 MEQ/L CARBON DIOXIDE (test code = 2206) 29 MEQ/L CALCIUM (test code = 2209) 10.0 MG/DL PROTEIN, TOTAL (test code = 2229) 7.1 G/DL ALBUMIN (test code = 2201) 4.6 G/DL CALC GLOBULIN (test code = 2240) 2.5 G/DL CALC A/G RATIO (test code = 2234) 1.8 RATIO BILIRUBIN, TOTAL (test code = 2207) 0.3 MG/DL ALKALINE PHOSPHATASE (test code = 2204) 67 U/L AST (test code = 2218) 25 U/L ALT (test code = 2219) 25 U/L Ricardo PenaTSH, THIRD [id number] 00:00:00* Test Item Value Reference Range Interpretation Comme nts TSH, THIRD GENERATION (test code = 2821) 2.100 UIU/ML Ricardo PenaCBC W/AUTO [id number] 00:00:00* Test Item Value Reference Range Interpretation Comme nts WBC (test code = 1001) 6.8 K/UL RBC (test code = 1002) 4.50 M/UL HEMOGLOBIN (test code = 1003) 14.2 G/DL HEMATOCRIT (test code = 1004) 40.5 % MCV (test code = 1005) 90.0 fL MCH (test code = 1006) 31.6 PG MCHC (test code = 1007) 35.1 G/DL RDW (test code = 1038) 12.5 % NEUTROPHILS (test code = 1008) 64.7 % LYMPHOCYTES (test code = 1010) 25.6 % MONOCYTES (test code = 1011) 8.4 % EOSINOPHILS (test code = 1012) 0.6 % BASOPHILS (test code = 1013) 0.4 % IMMATURE GRANULOCYTES (test code = 1036) 0.3 % NUCLEATED RBCS (test code = 1065) 0.0 /100WBC'S PLATELET COUNT (test code = 1015) 234 K/UL ABSOLUTE NEUTROPHILS (test c ode = 1066) 4.39 K/UL ABSOLUTE LYMPHOCYTES (test c ode = 1067) 1.74 K/UL ABSOLUTE MONOCYTES (test cod e = 1068) 0.57 K/UL ABSOLUTE EOSINOPHILS (test c ode = 1040) 0.04 K/UL ABSOLUTE BASOPHILS (test cod e = 1069) 0.03 K/UL ABS IMMATURE GRANULOCYTES (t est code = 1020) 0.02 K/UL ABS NUCLEATED RBCS (test cod e = 56474) 0.00 K/UL Ricardo Madrid SobieskiLIPID [id number] 00:00:00* Test Item Value Reference Range Interpretation Comme nts CHOLESTEROL (test code = 2210) 192 MG/DL TRIGLYCERIDES (test code = 2232) 73 MG/DL HDL CHOLESTEROL (test code = 2220) 60 MG/DL CALC LDL CHOL (test code = 2237) 115 MG/DL RISK RATIO LDL/HDL (test cod e = 2238) 1.92 RATIO Ricardo PenaCOMPREHENSIVE METABOLIC [id number] 00:00:00* Test Item Value Reference Range Interpretation Comme nts GLUCOSE (test code = 2217) 76 MG/DL BUN (test code = 2208) 15 MG/DL CREATININE (test code = 2214) 1.08 MG/DL eGFR (2020 CKD-EPI) (test co de = 65568) 61 ML/MIN/1.73 CALC BUN/CREAT (test code = 2235) 14 RATIO SODIUM (test code = 2231) 144 MEQ/L POTASSIUM (test code = 2228) 4.2 MEQ/L CHLORIDE (test code = 2215) 104 MEQ/L CARBON DIOXIDE (test code = 2206) 29 MEQ/L CALCIUM (test code = 2209) 10.0 MG/DL PROTEIN, TOTAL (test code = 2229) 7.1 G/DL ALBUMIN (test code = 2201) 4.6 G/DL CALC GLOBULIN (test code = 2240) 2.5 G/DL CALC A/G RATIO (test code = 2234) 1.8 RATIO BILIRUBIN, TOTAL (test code = 2207) 0.3 MG/DL ALKALINE PHOSPHATASE (test code = 2204) 67 U/L AST (test code = 2218) 25 U/L ALT (test code = 2219) 25 U/L Ricardo SpainH, THIRD [id number] 00:00:00* Test Item Value Reference Range Interpretation Comme nts TSH, THIRD GENERATION (test code = 2821) 2.100 UIU/ML Rciardo PenaCBC W/AUTO [id number] 00:00:00* Test Item Value Reference Range Interpretation Comme nts WBC (test code = 1001) 6.8 K/UL RBC (test code = 1002) 4.50 M/UL HEMOGLOBIN (test code = 1003) 14.2 G/DL HEMATOCRIT (test code = 1004) 40.5 % MCV (test code = 1005) 90.0 fL MCH (test code = 1006) 31.6 PG MCHC (test code = 1007) 35.1 G/DL RDW (test code = 1038) 12.5 % NEUTROPHILS (test code = 1008) 64.7 % LYMPHOCYTES (test code = 1010) 25.6 % MONOCYTES (test code = 1011) 8.4 % EOSINOPHILS (test code = 1012) 0.6 % BASOPHILS (test code = 1013) 0.4 % IMMATURE GRANULOCYTES (test code = 1036) 0.3 % NUCLEATED RBCS (test code = 1065) 0.0 /100WBC'S PLATELET COUNT (test code = 1015) 234 K/UL ABSOLUTE NEUTROPHILS (test c ode = 1066) 4.39 K/UL ABSOLUTE LYMPHOCYTES (test c ode = 1067) 1.74 K/UL ABSOLUTE MONOCYTES (test cod e = 1068) 0.57 K/UL ABSOLUTE EOSINOPHILS (test c ode = 1040) 0.04 K/UL ABSOLUTE BASOPHILS (test cod e = 1069) 0.03 K/UL ABS IMMATURE GRANULOCYTES (t est code = 1020) 0.02 K/UL ABS NUCLEATED RBCS (test cod e = 20322) 0.00 K/UL Ricardo PenaLIPID [id number] 00:00:00* Test Item Value Reference Range Interpretation Comme nts CHOLESTEROL (test code = 2210) 192 MG/DL TRIGLYCERIDES (test code = 2232) 73 MG/DL HDL CHOLESTEROL (test code = 2220) 60 MG/DL CALC LDL CHOL (test code = 2237) 115 MG/DL RISK RATIO LDL/HDL (test cod e = 2238) 1.92 RATIO Ricardo PenaCOMPREHENSIVE METABOLIC [id number] 00:00:00* Test Item Value Reference Range Interpretation Comme nts GLUCOSE (test code = 2217) 76 MG/DL BUN (test code = 2208) 15 MG/DL CREATININE (test code = 2214) 1.08 MG/DL eGFR (2020 CKD-EPI) (test co de = 05835) 61 ML/MIN/1.73 CALC BUN/CREAT (test code = 2235) 14 RATIO SODIUM (test code = 2231) 144 MEQ/L POTASSIUM (test code = 2228) 4.2 MEQ/L CHLORIDE (test code = 2215) 104 MEQ/L CARBON DIOXIDE (test code = 2206) 29 MEQ/L CALCIUM (test code = 2209) 10.0 MG/DL PROTEIN, TOTAL (test code = 2229) 7.1 G/DL ALBUMIN (test code = 2201) 4.6 G/DL CALC GLOBULIN (test code = 2240) 2.5 G/DL CALC A/G RATIO (test code = 2234) 1.8 RATIO BILIRUBIN, TOTAL (test code = 2207) 0.3 MG/DL ALKALINE PHOSPHATASE (test code = 2204) 67 U/L AST (test code = 2218) 25 U/L ALT (test code = 2219) 25 U/L Ricardo PenaTSH, THIRD [id number] 00:00:00* Test Item Value Reference Range Interpretation Comme nts TSH, THIRD GENERATION (test code = 2821) 2.100 UIU/ML Ricardo PenaCBC W/AUTO [id number] 00:00:00* Test Item Value Reference Range Interpretation Comme nts WBC (test code = 1001) 6.8 K/UL RBC (test code = 1002) 4.50 M/UL HEMOGLOBIN (test code = 1003) 14.2 G/DL HEMATOCRIT (test code = 1004) 40.5 % MCV (test code = 1005) 90.0 fL MCH (test code = 1006) 31.6 PG MCHC (test code = 1007) 35.1 G/DL RDW (test code = 1038) 12.5 % NEUTROPHILS (test code = 1008) 64.7 % LYMPHOCYTES (test code = 1010) 25.6 % MONOCYTES (test code = 1011) 8.4 % EOSINOPHILS (test code = 1012) 0.6 % BASOPHILS (test code = 1013) 0.4 % IMMATURE GRANULOCYTES (test code = 1036) 0.3 % NUCLEATED RBCS (test code = 1065) 0.0 /100WBC'S PLATELET COUNT (test code = 1015) 234 K/UL ABSOLUTE NEUTROPHILS (test c ode = 1066) 4.39 K/UL ABSOLUTE LYMPHOCYTES (test c ode = 1067) 1.74 K/UL ABSOLUTE MONOCYTES (test cod e = 1068) 0.57 K/UL ABSOLUTE EOSINOPHILS (test c ode = 1040) 0.04 K/UL ABSOLUTE BASOPHILS (test cod e = 1069) 0.03 K/UL ABS IMMATURE GRANULOCYTES (t est code = 1020) 0.02 K/UL ABS NUCLEATED RBCS (test cod e = 53123) 0.00 K/UL Ricardo Julius AustinLIPID [id number] 00:00:00* Test Item Value Reference Range Interpretation Comme nts CHOLESTEROL (test code = 2210) 192 MG/DL TRIGLYCERIDES (test code = 2232) 73 MG/DL HDL CHOLESTEROL (test code = 2220) 60 MG/DL CALC LDL CHOL (test code = 2237) 115 MG/DL RISK RATIO LDL/HDL (test cod e = 2238) 1.92 RATIO Ricardo PenaCOMPREHENSIVE METABOLIC [id number] 00:00:00* Test Item Value Reference Range Interpretation Comme nts GLUCOSE (test code = 2217) 76 MG/DL BUN (test code = 2208) 15 MG/DL CREATININE (test code = 2214) 1.08 MG/DL eGFR (2020 CKD-EPI) (test co de = 21808) 61 ML/MIN/1.73 CALC BUN/CREAT (test code = 2235) 14 RATIO SODIUM (test code = 2231) 144 MEQ/L POTASSIUM (test code = 2228) 4.2 MEQ/L CHLORIDE (test code = 2215) 104 MEQ/L CARBON DIOXIDE (test code = 2206) 29 MEQ/L CALCIUM (test code = 2209) 10.0 MG/DL PROTEIN, TOTAL (test code = 2229) 7.1 G/DL ALBUMIN (test code = 2201) 4.6 G/DL CALC GLOBULIN (test code = 2240) 2.5 G/DL CALC A/G RATIO (test code = 2234) 1.8 RATIO BILIRUBIN, TOTAL (test code = 2207) 0.3 MG/DL ALKALINE PHOSPHATASE (test code = 2204) 67 U/L AST (test code = 2218) 25 U/L ALT (test code = 2219) 25 U/L Ricardo PenaBARBARA, THIRD [id number] 00:00:00* Test Item Value Reference Range Interpretation Comme nts TSH, THIRD GENERATION (test code = 2821) 2.100 UIU/ML Ricardo PenaCBC W/AUTO [id number] 00:00:00* Test Item Value Reference Range Interpretation Comme nts WBC (test code = 1001) 6.8 K/UL RBC (test code = 1002) 4.50 M/UL HEMOGLOBIN (test code = 1003) 14.2 G/DL HEMATOCRIT (test code = 1004) 40.5 % MCV (test code = 1005) 90.0 fL MCH (test code = 1006) 31.6 PG MCHC (test code = 1007) 35.1 G/DL RDW (test code = 1038) 12.5 % NEUTROPHILS (test code = 1008) 64.7 % LYMPHOCYTES (test code = 1010) 25.6 % MONOCYTES (test code = 1011) 8.4 % EOSINOPHILS (test code = 1012) 0.6 % BASOPHILS (test code = 1013) 0.4 % IMMATURE GRANULOCYTES (test code = 1036) 0.3 % NUCLEATED RBCS (test code = 1065) 0.0 /100WBC'S PLATELET COUNT (test code = 1015) 234 K/UL ABSOLUTE NEUTROPHILS (test c ode = 1066) 4.39 K/UL ABSOLUTE LYMPHOCYTES (test c ode = 1067) 1.74 K/UL ABSOLUTE MONOCYTES (test cod e = 1068) 0.57 K/UL ABSOLUTE EOSINOPHILS (test c ode = 1040) 0.04 K/UL ABSOLUTE BASOPHILS (test cod e = 1069) 0.03 K/UL ABS IMMATURE GRANULOCYTES (t est code = 1020) 0.02 K/UL ABS NUCLEATED RBCS (test cod e = 79869) 0.00 K/UL Ricardo PenaLIPID [id number] 00:00:00* Test Item Value Reference Range Interpretation Comme nts CHOLESTEROL (test code = 2210) 192 MG/DL TRIGLYCERIDES (test code = 2232) 73 MG/DL HDL CHOLESTEROL (test code = 2220) 60 MG/DL CALC LDL CHOL (test code = 2237) 115 MG/DL RISK RATIO LDL/HDL (test cod e = 2238) 1.92 RATIO Ricardo PenaCOMPREHENSIVE METABOLIC [id number] 00:00:00* Test Item Value Reference Range Interpretation Comme nts GLUCOSE (test code = 2217) 76 MG/DL BUN (test code = 2208) 15 MG/DL CREATININE (test code = 2214) 1.08 MG/DL eGFR (2020 CKD-EPI) (test co de = 41982) 61 ML/MIN/1.73 CALC BUN/CREAT (test code = 2235) 14 RATIO SODIUM (test code = 2231) 144 MEQ/L POTASSIUM (test code = 2228) 4.2 MEQ/L CHLORIDE (test code = 2215) 104 MEQ/L CARBON DIOXIDE (test code = 2206) 29 MEQ/L CALCIUM (test code = 2209) 10.0 MG/DL PROTEIN, TOTAL (test code = 2229) 7.1 G/DL ALBUMIN (test code = 2201) 4.6 G/DL CALC GLOBULIN (test code = 2240) 2.5 G/DL CALC A/G RATIO (test code = 2234) 1.8 RATIO BILIRUBIN, TOTAL (test code = 2207) 0.3 MG/DL ALKALINE PHOSPHATASE (test code = 2204) 67 U/L AST (test code = 2218) 25 U/L ALT (test code = 2219) 25 U/L Ricardo PenaTSH, THIRD [id number] 00:00:00* Test Item Value Reference Range Interpretation Comme nts TSH, THIRD GENERATION (test code = 2821) 2.100 UIU/ML Ricardo PenaCBC W/AUTO [id number] 00:00:00* Test Item Value Reference Range Interpretation Comme nts WBC (test code = 1001) 6.8 K/UL RBC (test code = 1002) 4.50 M/UL HEMOGLOBIN (test code = 1003) 14.2 G/DL HEMATOCRIT (test code = 1004) 40.5 % MCV (test code = 1005) 90.0 fL MCH (test code = 1006) 31.6 PG MCHC (test code = 1007) 35.1 G/DL RDW (test code = 1038) 12.5 % NEUTROPHILS (test code = 1008) 64.7 % LYMPHOCYTES (test code = 1010) 25.6 % MONOCYTES (test code = 1011) 8.4 % EOSINOPHILS (test code = 1012) 0.6 % BASOPHILS (test code = 1013) 0.4 % IMMATURE GRANULOCYTES (test code = 1036) 0.3 % NUCLEATED RBCS (test code = 1065) 0.0 /100WBC'S PLATELET COUNT (test code = 1015) 234 K/UL ABSOLUTE NEUTROPHILS (test c ode = 1066) 4.39 K/UL ABSOLUTE LYMPHOCYTES (test c ode = 1067) 1.74 K/UL ABSOLUTE MONOCYTES (test cod e = 1068) 0.57 K/UL ABSOLUTE EOSINOPHILS (test c ode = 1040) 0.04 K/UL ABSOLUTE BASOPHILS (test cod e = 1069) 0.03 K/UL ABS IMMATURE GRANULOCYTES (t est code = 1020) 0.02 K/UL ABS NUCLEATED RBCS (test cod e = 82943) 0.00 K/UL Ricardo PenaLIPID [id number] 00:00:00* Test Item Value Reference Range Interpretation Comme nts CHOLESTEROL (test code = 2210) 192 MG/DL TRIGLYCERIDES (test code = 2232) 73 MG/DL HDL CHOLESTEROL (test code = 2220) 60 MG/DL CALC LDL CHOL (test code = 2237) 115 MG/DL RISK RATIO LDL/HDL (test cod e = 2238) 1.92 RATIO Ricardo PenaCOMPREHENSIVE METABOLIC [id number] 00:00:00* Test Item Value Reference Range Interpretation Comme nts GLUCOSE (test code = 2217) 76 MG/DL BUN (test code = 2208) 15 MG/DL CREATININE (test code = 2214) 1.08 MG/DL eGFR (2020 CKD-EPI) (test co de = 40870) 61 ML/MIN/1.73 CALC BUN/CREAT (test code = 2235) 14 RATIO SODIUM (test code = 2231) 144 MEQ/L POTASSIUM (test code = 2228) 4.2 MEQ/L CHLORIDE (test code = 2215) 104 MEQ/L CARBON DIOXIDE (test code = 2206) 29 MEQ/L CALCIUM (test code = 2209) 10.0 MG/DL PROTEIN, TOTAL (test code = 2229) 7.1 G/DL ALBUMIN (test code = 2201) 4.6 G/DL CALC GLOBULIN (test code = 2240) 2.5 G/DL CALC A/G RATIO (test code = 2234) 1.8 RATIO BILIRUBIN, TOTAL (test code = 2207) 0.3 MG/DL ALKALINE PHOSPHATASE (test code = 2204) 67 U/L AST (test code = 2218) 25 U/L ALT (test code = 2219) 25 U/L Ricardo SpainH, THIRD [id number] 00:00:00* Test Item Value Reference Range Interpretation Comme nts TSH, THIRD GENERATION (test code = 2821) 2.100 UIU/ML Ricardo PenaCBC W/AUTO [id number] 00:00:00* Test Item Value Reference Range Interpretation Comme nts WBC (test code = 1001) 6.8 K/UL RBC (test code = 1002) 4.50 M/UL HEMOGLOBIN (test code = 1003) 14.2 G/DL HEMATOCRIT (test code = 1004) 40.5 % MCV (test code = 1005) 90.0 fL MCH (test code = 1006) 31.6 PG MCHC (test code = 1007) 35.1 G/DL RDW (test code = 1038) 12.5 % NEUTROPHILS (test code = 1008) 64.7 % LYMPHOCYTES (test code = 1010) 25.6 % MONOCYTES (test code = 1011) 8.4 % EOSINOPHILS (test code = 1012) 0.6 % BASOPHILS (test code = 1013) 0.4 % IMMATURE GRANULOCYTES (test code = 1036) 0.3 % NUCLEATED RBCS (test code = 1065) 0.0 /100WBC'S PLATELET COUNT (test code = 1015) 234 K/UL ABSOLUTE NEUTROPHILS (test c ode = 1066) 4.39 K/UL ABSOLUTE LYMPHOCYTES (test c ode = 1067) 1.74 K/UL ABSOLUTE MONOCYTES (test cod e = 1068) 0.57 K/UL ABSOLUTE EOSINOPHILS (test c ode = 1040) 0.04 K/UL ABSOLUTE BASOPHILS (test cod e = 1069) 0.03 K/UL ABS IMMATURE GRANULOCYTES (t est code = 1020) 0.02 K/UL ABS NUCLEATED RBCS (test cod e = 51288) 0.00 K/UL Ricardo Madrid JeanLIPID [id number] 00:00:00* Test Item Value Reference Range Interpretation Comme nts CHOLESTEROL (test code = 2210) 192 MG/DL TRIGLYCERIDES (test code = 2232) 73 MG/DL HDL CHOLESTEROL (test code = 2220) 60 MG/DL CALC LDL CHOL (test code = 2237) 115 MG/DL RISK RATIO LDL/HDL (test cod e = 2238) 1.92 RATIO Ricardo PenaCOMPREHENSIVE METABOLIC [id number] 00:00:00* Test Item Value Reference Range Interpretation Comme nts GLUCOSE (test code = 2217) 76 MG/DL BUN (test code = 2208) 15 MG/DL CREATININE (test code = 2214) 1.08 MG/DL eGFR (2020 CKD-EPI) (test co de = 03474) 61 ML/MIN/1.73 CALC BUN/CREAT (test code = 2235) 14 RATIO SODIUM (test code = 2231) 144 MEQ/L POTASSIUM (test code = 2228) 4.2 MEQ/L CHLORIDE (test code = 2215) 104 MEQ/L CARBON DIOXIDE (test code = 2206) 29 MEQ/L CALCIUM (test code = 2209) 10.0 MG/DL PROTEIN, TOTAL (test code = 2229) 7.1 G/DL ALBUMIN (test code = 2201) 4.6 G/DL CALC GLOBULIN (test code = 2240) 2.5 G/DL CALC A/G RATIO (test code = 2234) 1.8 RATIO BILIRUBIN, TOTAL (test code = 2207) 0.3 MG/DL ALKALINE PHOSPHATASE (test code = 2204) 67 U/L AST (test code = 2218) 25 U/L ALT (test code = 2219) 25 U/L Ricardo Abrams, THIRD [id number] 00:00:00* Test Item Value Reference Range Interpretation Comme nts TSH, THIRD GENERATION (test code = 2821) 2.100 UIU/ML Ricardo PenaCBC W/AUTO [id number] 00:00:00* Test Item Value Reference Range Interpretation Comme nts WBC (test code = 1001) 6.8 K/UL RBC (test code = 1002) 4.50 M/UL HEMOGLOBIN (test code = 1003) 14.2 G/DL HEMATOCRIT (test code = 1004) 40.5 % MCV (test code = 1005) 90.0 fL MCH (test code = 1006) 31.6 PG MCHC (test code = 1007) 35.1 G/DL RDW (test code = 1038) 12.5 % NEUTROPHILS (test code = 1008) 64.7 % LYMPHOCYTES (test code = 1010) 25.6 % MONOCYTES (test code = 1011) 8.4 % EOSINOPHILS (test code = 1012) 0.6 % BASOPHILS (test code = 1013) 0.4 % IMMATURE GRANULOCYTES (test code = 1036) 0.3 % NUCLEATED RBCS (test code = 1065) 0.0 /100WBC'S PLATELET COUNT (test code = 1015) 234 K/UL ABSOLUTE NEUTROPHILS (test c ode = 1066) 4.39 K/UL ABSOLUTE LYMPHOCYTES (test c ode = 1067) 1.74 K/UL ABSOLUTE MONOCYTES (test cod e = 1068) 0.57 K/UL ABSOLUTE EOSINOPHILS (test c ode = 1040) 0.04 K/UL ABSOLUTE BASOPHILS (test cod e = 1069) 0.03 K/UL ABS IMMATURE GRANULOCYTES (t est code = 1020) 0.02 K/UL ABS NUCLEATED RBCS (test cod e = 08731) 0.00 K/UL Ricardo PenaLIPID [id number] 00:00:00* Test Item Value Reference Range Interpretation Comme nts CHOLESTEROL (test code = 2210) 192 MG/DL TRIGLYCERIDES (test code = 2232) 73 MG/DL HDL CHOLESTEROL (test code = 2220) 60 MG/DL CALC LDL CHOL (test code = 2237) 115 MG/DL RISK RATIO LDL/HDL (test cod e = 2238) 1.92 RATIO Ricardo PenaCOMPREHENSIVE METABOLIC [id number] 00:00:00* Test Item Value Reference Range Interpretation Comme nts GLUCOSE (test code = 2217) 76 MG/DL BUN (test code = 2208) 15 MG/DL CREATININE (test code = 2214) 1.08 MG/DL eGFR (2020 CKD-EPI) (test co de = 47633) 61 ML/MIN/1.73 CALC BUN/CREAT (test code = 2235) 14 RATIO SODIUM (test code = 2231) 144 MEQ/L POTASSIUM (test code = 2228) 4.2 MEQ/L CHLORIDE (test code = 2215) 104 MEQ/L CARBON DIOXIDE (test code = 2206) 29 MEQ/L CALCIUM (test code = 2209) 10.0 MG/DL PROTEIN, TOTAL (test code = 2229) 7.1 G/DL ALBUMIN (test code = 2201) 4.6 G/DL CALC GLOBULIN (test code = 2240) 2.5 G/DL CALC A/G RATIO (test code = 2234) 1.8 RATIO BILIRUBIN, TOTAL (test code = 2207) 0.3 MG/DL ALKALINE PHOSPHATASE (test code = 2204) 67 U/L AST (test code = 2218) 25 U/L ALT (test code = 2219) 25 U/L Ricardo PenaTSH, THIRD [id number] 00:00:00* Test Item Value Reference Range Interpretation Comme nts TSH, THIRD GENERATION (test code = 2821) 2.100 UIU/ML Ricardo PenaTHYROID II PROFILE (TU, T4, T7, TSH)2022-07-17 00:00:00* Test Item Value Reference Range Interpretation Comme nts T-UPTAKE (test code = 2817) 24.3 % THYROX. BIND. CAPAC. (test c ode = 23934) 1.3 T4 (THYROXINE) (test code = 2819) 6.4 UG/DL CORRECTED T4 (FTI) (test cod e = 2820) 4.9 UG/DL TSH, THIRD GENERATION (test code = 2821) 5.480 UIU/ML Ricardo F AustinTHYROID II PROFILE (TU, T4, T7, TSH)2022-07-17 00:00:00* Test Item Value Reference Range Interpretation Comme nts T-UPTAKE (test code = 2817) 24.3 % THYROX. BIND. CAPAC. (test c ode = 43684) 1.3 T4 (THYROXINE) (test code = 2819) 6.4 UG/DL CORRECTED T4 (FTI) (test cod e = 2820) 4.9 UG/DL TSH, THIRD GENERATION (test code = 2821) 5.480 UIU/ML Ricardo Madrid AustinTHYROID II PROFILE (TU, T4, T7, TSH)2022-07-17 00:00:00* Test Item Value Reference Range Interpretation Comme nts T-UPTAKE (test code = 2817) 24.3 % THYROX. BIND. CAPAC. (test c ode = 99754) 1.3 T4 (THYROXINE) (test code = 2819) 6.4 UG/DL CORRECTED T4 (FTI) (test cod e = 2820) 4.9 UG/DL TSH, THIRD GENERATION (test code = 2821) 5.480 UIU/ML Ricardo AustinTHYROID II PROFILE (TU, T4, T7, TSH)2022-07-17 00:00:00* Test Item Value Reference Range Interpretation Comme nts T-UPTAKE (test code = 2817) 24.3 % THYROX. BIND. CAPAC. (test c ode = 17796) 1.3 T4 (THYROXINE) (test code = 2819) 6.4 UG/DL CORRECTED T4 (FTI) (test cod e = 2820) 4.9 UG/DL TSH, THIRD GENERATION (test code = 2821) 5.480 UIU/ML Ricardo AustinTHYROID II PROFILE (TU, T4, T7, TSH)2022-07-17 00:00:00* Test Item Value Reference Range Interpretation Comme nts T-UPTAKE (test code = 2817) 24.3 % THYROX. BIND. CAPAC. (test c ode = 67735) 1.3 T4 (THYROXINE) (test code = 2819) 6.4 UG/DL CORRECTED T4 (FTI) (test cod e = 2820) 4.9 UG/DL TSH, THIRD GENERATION (test code = 2821) 5.480 UIU/ML Ricardo Madrid AustinTHYROID II PROFILE (TU, T4, T7, TSH)2022-07-17 00:00:00* Test Item Value Reference Range Interpretation Comme nts T-UPTAKE (test code = 2817) 24.3 % THYROX. BIND. CAPAC. (test c ode = 15732) 1.3 T4 (THYROXINE) (test code = 2819) 6.4 UG/DL CORRECTED T4 (FTI) (test cod e = 2820) 4.9 UG/DL TSH, THIRD GENERATION (test code = 2821) 5.480 UIU/ML Ricardo Madrid AustinTHYROID II PROFILE (TU, T4, T7, TSH)2022-07-17 00:00:00* Test Item Value Reference Range Interpretation Comme nts T-UPTAKE (test code = 2817) 24.3 % THYROX. BIND. CAPAC. (test c ode = 80563) 1.3 T4 (THYROXINE) (test code = 2819) 6.4 UG/DL CORRECTED T4 (FTI) (test cod e = 2820) 4.9 UG/DL TSH, THIRD GENERATION (test code = 2821) 5.480 UIU/ML Ricardo Madrid AustinTHYROID II PROFILE (TU, T4, T7, TSH)2022-07-17 00:00:00* Test Item Value Reference Range Interpretation Comme nts T-UPTAKE (test code = 2817) 24.3 % THYROX. BIND. CAPAC. (test c ode = 98832) 1.3 T4 (THYROXINE) (test code = 2819) 6.4 UG/DL CORRECTED T4 (FTI) (test cod e = 2820) 4.9 UG/DL TSH, THIRD GENERATION (test code = 2821) 5.480 UIU/ML Ricardo AustinTHYROID II PROFILE (TU, T4, T7, TSH)2022-07-17 00:00:00* Test Item Value Reference Range Interpretation Comme nts T-UPTAKE (test code = 2817) 24.3 % THYROX. BIND. CAPAC. (test c ode = 02104) 1.3 T4 (THYROXINE) (test code = 2819) 6.4 UG/DL CORRECTED T4 (FTI) (test cod e = 2820) 4.9 UG/DL TSH, THIRD GENERATION (test code = 2821) 5.480 UIU/ML Ricardo PenaTHYROID II PROFILE (TU, T4, T7, TSH)2022-07-17 00:00:00* Test Item Value Reference Range Interpretation Comme nts T-UPTAKE (test code = 2817) 24.3 % THYROX. BIND. CAPAC. (test c ode = 96059) 1.3 T4 (THYROXINE) (test code = 2819) 6.4 UG/DL CORRECTED T4 (FTI) (test cod e = 2820) 4.9 UG/DL TSH, THIRD GENERATION (test code = 2821) 5.480 UIU/ML Ricardo Ordoñez, [id number] 11:47:32SPECIMEN NUMBER: [id number] CULTURE, URINE SPECIMEN NUMBER: [id number] SPECIMEN COMMENT: URINE SOURCE: URINE REPORT STATUS: FINAL ISOLATE NUMBER 1: ORGANISM: 09/05/2021 10-50,000 CFU/ML GRAM NEGATIVE BACILLI IDENTIFICATION: 09/06/2021 ESCHERICHIA COLI ADDITIONAL OBSERVATIONS: 09/07/2021 <10,000 CFU/ML UROGENITAL SUNITA PRESENT NO COMMON PATHOGENS E. COLI AMOXICILLIN/CA SENSITIVE <=8/4AMPICILLIN RESISTANT >16CEFAZOLIN SENSITIVE <=2CEFTRIAXONE SENSITIVE <=1CIPROFLOXACIN SENSITIVE <=1LEVOFLOXACIN SENSITIVE <=2NITROFURANTOIN SENSITIVE <=32PIP/TAZOBAC SENSITIVE <=16TETRACYCLINE RESISTANT >8TOBRAMYCIN SENSITIVE <=4TRIMETH/SULFA SENSITIVE <=2/38 NOTE: NUMBERS DISPLAYED REPRESENT MINIMUM INHIBITORY CONCENTRATION (REYNA) WHICH IS EXPRESSED IN MCG/ML.CULTURE, [id number] 00:00:00* Test Item Value Reference Range Interpretation Comme nts CULTURE, URINE (test code = 46614) SPECIMEN NUMBER: [id number] Ricardo Ordoñez, [id number] 00:00:00* Test Item Value Reference Range Interpretation Comme nts CULTURE, URINE (test code = 40194) SPECIMEN NUMBER: [id number] Ricardo Ordoñez, [id number] 00:00:00* Test Item Value Reference Range Interpretation Comme nts CULTURE, URINE (test code = 49781) SPECIMEN NUMBER: [id number] Ricardo Ordoñez, [id number] 00:00:00* Test Item Value Reference Range Interpretation Comme nts CULTURE, URINE (test code = 59479) SPECIMEN NUMBER: [id number] Ricardo Ordoñez, [id number] 00:00:00* Test Item Value Reference Range Interpretation Comme nts CULTURE, URINE (test code = 34440) SPECIMEN NUMBER: [id number] Ricardo Ordoñez, [id number] 00:00:00* Test Item Value Reference Range Interpretation Comme nts CULTURE, URINE (test code = 12266) SPECIMEN NUMBER: [id number] Ricardo BayLTREGINALDO, [id number] 00:00:00* Test Item Value Reference Range Interpretation Comme nts CULTURE, URINE (test code = 91763) SPECIMEN NUMBER: [id number] Ricardo Ordoñez, [id number] 00:00:00* Test Item Value Reference Range Interpretation Comme nts CULTURE, URINE (test code = 12492) SPECIMEN NUMBER: [id number] Ricardo Ordoñez, [id number] 00:00:00* Test Item Value Reference Range Interpretation Comme nts CULTURE, URINE (test code = 04889) SPECIMEN NUMBER: [id number] Ricardo Ordoñez, [id number] 00:00:00* Test Item Value Reference Range Interpretation Comme nts CULTURE, URINE (test code = 17196) SPECIMEN NUMBER: [id number] Ricardo PenaPAP TEST, THINPREP, [id number] 10:20:54* Test Item Value Reference Range Interpretation Comme nts SOURCE: (test code = 8001) Cervical/Endoce rvical SLIDES: (test code = 8011) 1 LMP: (test code = 8021) 02/14/2013 SPECIMEN ADEQUACY: (test code = 58505) (NOTE) Satisfactory for evaluation. Endocervical cells/transformation zone component not identified. INTERPRETATION: (test code = 09712) NILM/NO EPITH. ABNORMALITY;SEE BELOW --- - NEGATIVE FOR INTRAEPITHELIAL LESION OR MALIGNANCY (NILM) ---- TITLE PROCESSOR : (test code = 8101) CONSTANZA Sal (ASCP) LOCATION: (test code = 66754) (NOTE) Specimens proces sed and interpreted at [facility], [address] [place] [address], , CLIA: [id number] CPT: (test code = 8140) (NOTE) 79278 UNLESS OTH ERWISE INDICATED, COMPUTER AIDED AND TITLE PROCESSOR SCREENING PERFORMED. The Pap test is a screening test with an inherent, but low probability of error. Your patient should be reminded to consult you immediately if she experiences any suspicious signs or symptoms, regardless of her Pap test result. An alternate report format containing images or consolidated prior Pap history is available as applicable. PAP TEST, THINPREP, [id number] 00:00:00* Test Item Value Reference Range Interpretation Comme nts SOURCE: (test code = 8001) Cervical/Endocervical SLIDES: (test code = 8011) 1 LMP: (test code = 8021) 02/14/2013 SPECIMEN ADEQUACY: (test code = 99329) (NOTE) INTERPRETATION: (test code = 04914) NILM/NO EPITH. ABNORMALITY;SEE BELOW TITLE PROCESSOR: (test code = 8101) CONSTANZA Sal (ASCP) LOCATION: (test code = 44289) (NOTE) CPT: (test code = 8140) (NOTE) Ricardo YangP TEST, THINPREP, [id number] 00:00:00* Test Item Value Reference Range Interpretation Comme nts SOURCE: (test code = 8001) Cervical/Endocervical SLIDES: (test code = 8011) 1 LMP: (test code = 8021) 02/14/2013 SPECIMEN ADEQUACY: (test code = 81041) (NOTE) INTERPRETATION: (test code = 54306) NILM/NO EPITH. ABNORMALITY;SEE BELOW TITLE PROCESSOR: (test code = 8101) Leonila Kimble CT (ASCP) LOCATION: (test code = 58535) (NOTE) CPT: (test code = 8140) (NOTE) Ricardo PenaPAP TEST, THINPREP, [id number] 00:00:00* Test Item Value Reference Range Interpretation Comme nts SOURCE: (test code = 8001) Cervical/Endocervical SLIDES: (test code = 8011) 1 LMP: (test code = 8021) 02/14/2013 SPECIMEN ADEQUACY: (test code = 40322) (NOTE) INTERPRETATION: (test code = 83923) NILM/NO EPITH. ABNORMALITY;SEE BELOW TITLE PROCESSOR: (test code = 8101) Leonila Kimble MA (ASCP) LOCATION: (test code = 62174) (NOTE) CPT: (test code = 8140) (NOTE) Ricardo YangP TEST, THINPREP, [id number] 00:00:00* Test Item Value Reference Range Interpretation Comme nts SOURCE: (test code = 8001) Cervical/Endocervical SLIDES: (test code = 8011) 1 LMP: (test code = 8021) 02/14/2013 SPECIMEN ADEQUACY: (test code = 14683) (NOTE) INTERPRETATION: (test code = 67715) NILM/NO EPITH. ABNORMALITY;SEE BELOW TITLE PROCESSOR: (test code = 8101) Leonila Kimble MA (ASCP) LOCATION: (test code = 71795) (NOTE) CPT: (test code = 8140) (NOTE) Ricardo PenaPAP TEST, THINPREP, [id number] 00:00:00* Test Item Value Reference Range Interpretation Comme nts SOURCE: (test code = 8001) Cervical/Endocervical SLIDES: (test code = 8011) 1 LMP: (test code = 8021) 02/14/2013 SPECIMEN ADEQUACY: (test code = 82176) (NOTE) INTERPRETATION: (test code = 75986) NILM/NO EPITH. ABNORMALITY;SEE BELOW TITLE PROCESSOR: (test code = 8101) Leonila Ochoa Kimble, CT (ASCP) LOCATION: (test code = 81926) (NOTE) CPT: (test code = 8140) (NOTE) Ricardo YangP TEST, THINPREP, [id number] 00:00:00* Test Item Value Reference Range Interpretation Comme nts SOURCE: (test code = 8001) Cervical/Endocervical SLIDES: (test code = 8011) 1 LMP: (test code = 8021) 02/14/2013 SPECIMEN ADEQUACY: (test code = 71100) (NOTE) INTERPRETATION: (test code = 83058) NILM/NO EPITH. ABNORMALITY;SEE BELOW TITLE PROCESSOR: (test code = 8101) Leonila Ochoa Kimble CT (ASCP) LOCATION: (test code = 80408) (NOTE) CPT: (test code = 8140) (NOTE) Ricardo PenaPAP TEST, THINPREP, [id number] 00:00:00* Test Item Value Reference Range Interpretation Comme nts SOURCE: (test code = 8001) Cervical/Endocervical SLIDES: (test code = 8011) 1 LMP: (test code = 8021) 02/14/2013 SPECIMEN ADEQUACY: (test code = 22104) (NOTE) INTERPRETATION: (test code = 98090) NILM/NO EPITH. ABNORMALITY;SEE BELOW TITLE PROCESSOR: (test code = 8101) Leonila Beryl Lamin, CT (ASCP) LOCATION: (test code = 04408) (NOTE) CPT: (test code = 8140) (NOTE) Ricardo YangP TEST, THINPREP, [id number] 00:00:00* Test Item Value Reference Range Interpretation Comme nts SOURCE: (test code = 8001) Cervical/Endocervical SLIDES: (test code = 8011) 1 LMP: (test code = 8021) 02/14/2013 SPECIMEN ADEQUACY: (test code = 10292) (NOTE) INTERPRETATION: (test code = 02068) NILM/NO EPITH. ABNORMALITY;SEE BELOW TITLE PROCESSOR: (test code = 8101) Leonila Beryl Lamin, CT (ASCP) LOCATION: (test code = 41375) (NOTE) CPT: (test code = 8140) (NOTE) Ricardo PenaPAP TEST, THINPREP, [id number] 00:00:00* Test Item Value Reference Range Interpretation Comme nts SOURCE: (test code = 8001) Cervical/Endocervical SLIDES: (test code = 8011) 1 LMP: (test code = 8021) 02/14/2013 SPECIMEN ADEQUACY: (test code = 61997) (NOTE) INTERPRETATION: (test code = 92752) NILM/NO EPITH. ABNORMALITY;SEE BELOW TITLE PROCESSOR: (test code = 8101) CONSTANZA Sal (ASCP) LOCATION: (test code = 52694) (NOTE) CPT: (test code = 8140) (NOTE) Ricardo PenaPAP TEST, THINPREP, [id number] 00:00:00* Test Item Value Reference Range Interpretation Comme nts SOURCE: (test code = 8001) Cervical/Endocervical SLIDES: (test code = 8011) 1 LMP: (test code = 8021) 02/14/2013 SPECIMEN ADEQUACY: (test code = 30990) (NOTE) INTERPRETATION: (test code = 08558) NILM/NO EPITH. ABNORMALITY;SEE BELOW TITLE PROCESSOR: (test code = 8101) CONSTANZA Sal (ASCP) LOCATION: (test code = 46724) (NOTE) CPT: (test code = 8140) (NOTE) Ricardo PenaHPV HIGH RISK WITH GENOTYPE, [id number] 17:39:19* Test Item Value Reference Range Interpretation Comme nts HPV HIGH RISK INTERP (test code = 73458) NEGATIVE NEGATIVE HPV 16 (test code = 50652) NEGATIVE HPV 18 (test code = 61595) NEGATIVE HPV, HR, OTHER GENOTYPES (test code = 82534) NEGATIVE Testing methodol ogy is real-time PCR [...] error. UNLESS OTHERWISE INDICATED, ALL TESTING PERFORMED [employer] [facility] [employer] [address] [place] [address] ROLE PLAYER: REBECA MARC M.D. CLIA NUMBER [id number] [place]. [id number] VAGINAL PATHOGENS DNA [id number] 15:53:00* Test Item Value Reference Range Interpretation Comme nts ALTA SPECIES (test code = ) NEGATIVE NEGATIVE G. VAGINALIS (test code = 32772) NEGATIVE NEGATIVE T. VAGINALIS (test code = 10299) NEGATIVE NEGATIVE UNLESS OTHERWISE INDICATED, ALL TESTING PERFORMED [employer] [address] [place] [address] ROLE PLAYER: Miller STEVENSONIA NUMBER [id number] [place]. [id number] VAGINAL PATHOGENS DNA [id number] 00:00:00* Test Item Value Reference Range Interpretation Comme nts ALTA SPECIES (test code = ) NEGATIVE G. VAGINALIS (test code = 02268) NEGATIVE T. VAGINALIS (test code = ) NEGATIVE Ricardo F AustinHPV HIGH RISK WITH GENOTYPE, [id number] 00:00:00* Test Item Value Reference Range Interpretation Comme nts HPV HIGH RISK INTERP (test c ode = 19485) NEGATIVE HPV 16 (test code = 89678) NEGATIVE HPV 18 (test code = 33513) NEGATIVE HPV, HR, OTHER GENOTYPES (te st code = 11884) NEGATIVE Ricardo F AustinVAGINAL PATHOGENS DNA [id number] 00:00:00* Test Item Value Reference Range Interpretation Comme nts ALTA SPECIES (test code = ) NEGATIVE G. VAGINALIS (test code = 62849) NEGATIVE T. VAGINALIS (test code = 13663) NEGATIVE Ricardo F AustinHPV HIGH RISK WITH GENOTYPE, [id number] 00:00:00* Test Item Value Reference Range Interpretation Comme nts HPV HIGH RISK INTERP (test c ode = 23109) NEGATIVE HPV 16 (test code = 41352) NEGATIVE HPV 18 (test code = 53492) NEGATIVE HPV, HR, OTHER GENOTYPES (te st code = 32992) NEGATIVE Ricardo F AustinVAGINAL PATHOGENS DNA [id number] 00:00:00* Test Item Value Reference Range Interpretation Comme nts ALTA SPECIES (test code = 88580) NEGATIVE G. VAGINALIS (test code = 64508) NEGATIVE T. VAGINALIS (test code = ) NEGATIVE Ricardo F AustinHPV HIGH RISK WITH GENOTYPE, [id number] 00:00:00* Test Item Value Reference Range Interpretation Comme nts HPV HIGH RISK INTERP (test c ode = 85151) NEGATIVE HPV 16 (test code = 78740) NEGATIVE HPV 18 (test code = 37812) NEGATIVE HPV, HR, OTHER GENOTYPES (te st code = 26510) NEGATIVE Ricardo F AustinVAGINAL PATHOGENS DNA [id number] 00:00:00* Test Item Value Reference Range Interpretation Comme nts ALTA SPECIES (test code = ) NEGATIVE G. VAGINALIS (test code = 73282) NEGATIVE T. VAGINALIS (test code = ) NEGATIVE Ricardo F AustinHPV HIGH RISK WITH GENOTYPE, [id number] 00:00:00* Test Item Value Reference Range Interpretation Comme nts HPV HIGH RISK INTERP (test c ode = 98770) NEGATIVE HPV 16 (test code = 62726) NEGATIVE HPV 18 (test code = 54428) NEGATIVE HPV, HR, OTHER GENOTYPES (te st code = 62285) NEGATIVE Ricardo F AustinVAGINAL PATHOGENS DNA [id number] 00:00:00* Test Item Value Reference Range Interpretation Comme nts ALTA SPECIES (test code = ) NEGATIVE G. VAGINALIS (test code = ) NEGATIVE T. VAGINALIS (test code = ) NEGATIVE Ricardo F AustinHPV HIGH RISK WITH GENOTYPE, [id number] 00:00:00* Test Item Value Reference Range Interpretation Comme nts HPV HIGH RISK INTERP (test c ode = 32459) NEGATIVE HPV 16 (test code = 01701) NEGATIVE HPV 18 (test code = 67912) NEGATIVE HPV, HR, OTHER GENOTYPES (te st code = 14815) NEGATIVE Ricardo F AustinVAGINAL PATHOGENS DNA [id number] 00:00:00* Test Item Value Reference Range Interpretation Comme nts ALTA SPECIES (test code = ) NEGATIVE G. VAGINALIS (test code = 66756) NEGATIVE T. VAGINALIS (test code = 17193) NEGATIVE Ricardo F AustinHPV HIGH RISK WITH GENOTYPE, [id number] 00:00:00* Test Item Value Reference Range Interpretation Comme nts HPV HIGH RISK INTERP (test c ode = 58842) NEGATIVE HPV 16 (test code = 63777) NEGATIVE HPV 18 (test code = 65844) NEGATIVE HPV, HR, OTHER GENOTYPES (te st code = 23826) NEGATIVE Ricardo F AustinVAGINAL PATHOGENS DNA [id number] 00:00:00* Test Item Value Reference Range Interpretation Comme nts ALTA SPECIES (test code = ) NEGATIVE G. VAGINALIS (test code = 69372) NEGATIVE T. VAGINALIS (test code = 69035) NEGATIVE Ricardo F AustinHPV HIGH RISK WITH GENOTYPE, [id number] 00:00:00* Test Item Value Reference Range Interpretation Comme nts HPV HIGH RISK INTERP (test c ode = 66565) NEGATIVE HPV 16 (test code = 89592) NEGATIVE HPV 18 (test code = 44781) NEGATIVE HPV, HR, OTHER GENOTYPES (te st code = 35769) NEGATIVE Ricardo F AustinVAGINAL PATHOGENS DNA [id number] 00:00:00* Test Item Value Reference Range Interpretation Comme nts ALTA SPECIES (test code = ) NEGATIVE G. VAGINALIS (test code = ) NEGATIVE T. VAGINALIS (test code = ) NEGATIVE Ricardo F AustinHPV HIGH RISK WITH GENOTYPE, [id number] 00:00:00* Test Item Value Reference Range Interpretation Comme nts HPV HIGH RISK INTERP (test c ode = 39014) NEGATIVE HPV 16 (test code = 05859) NEGATIVE HPV 18 (test code = 77513) NEGATIVE HPV, HR, OTHER GENOTYPES (te st code = 09086) NEGATIVE Ricardo F AustinVAGINAL PATHOGENS DNA [id number] 00:00:00* Test Item Value Reference Range Interpretation Comme nts ALTA SPECIES (test code = ) NEGATIVE G. VAGINALIS (test code = 37095) NEGATIVE T. VAGINALIS (test code = ) NEGATIVE Ricardo F AustinHPV HIGH RISK WITH GENOTYPE, [id number] 00:00:00* Test Item Value Reference Range Interpretation Comme nts HPV HIGH RISK INTERP (test c ode = 62817) NEGATIVE HPV 16 (test code = 01796) NEGATIVE HPV 18 (test code = 73451) NEGATIVE HPV, HR, OTHER GENOTYPES (te st code = 51027) NEGATIVE Ricardo PenaVAGINAL PATHOGENS DNA [id number] 00:00:00* Test Item Value Reference Range Interpretation Comme nts ATLA SPECIES (test code = 82686) NEGATIVE G. VAGINALIS (test code = 55889) NEGATIVE T. VAGINALIS (test code = 22639) NEGATIVE Ricardo PenaHPV HIGH RISK WITH GENOTYPE, [id number] 00:00:00* Test Item Value Reference Range Interpretation Comme nts HPV HIGH RISK INTERP (test c ode = 29621) NEGATIVE HPV 16 (test code = 42048) NEGATIVE HPV 18 (test code = 67133) NEGATIVE HPV, HR, OTHER GENOTYPES (te st code = 30729) NEGATIVE Ricardo Pena Notes Date/Time Note Provider Source Ricardo Olmstead [facility]2025-07-11 00:00:00 Ricardo Gregoria [facility]2025-06-12 00:00:00 [facility]2025-05-12 00:00:00 Ricardo Gregorai [facility]2025-04-10 00:00:00 Ricardo Gregoria [facility]2025-03-10 00:00:00 [facility]2024-05-21 17:06:43 Patient dc home. Take rx as prescribed. Follow up with pcp. Verbalized understanding. Chapin Carroll [id number] 14:33:14 Patient reports that she had diarrhea yesterday and this AM she began to have extreme abdominal pain in the lower right side of her abdomen at 0430. States that she vomited and then she squeezed the area and was able to go back to sleep. Patient with a history of appendectomy and ovarian cysts. States that she is post menopausal. Patient reports that the pain is better now however has not fully gone away. [facility] - [id number] 00:00:00 Ricardo F. [facility]
[2024-10-31] MEDS ORDERED: KETOROLAC 30 MG/ML INJ ONE (14:05)
[2024-10-31] MEDS ORDERED: NA CHLORIDE 0.9% 1,000 ML ONE (14:05)
[2024-10-31] MEDS ORDERED: ONDANSETRON 4 MG/2 ML VIAL ONE (14:05)
[2024-10-31 14:17] LABS: Sqamous Epithelial None Seen /HPF (None Seen); Urine Crystals Unidentified Few /HPF (None Seen); Urine Culture Reflex Order REFLEXED; Urine Microscopic Reflex YN ORDER UMIC; Urine WBC Clump Few /HPF (None Seen); Urine Yeast (Budding) Many /HPF (None Seen)
[2024-10-31 14:20] LABS: Absolute Lymphocytes (CBC) 1.6 K/uL (0.7-4.9); Hematocrit 40.0 % (36.0-45.0); Hemoglobin 13.7 g/dL (12.0-15.0); MCH 30.6 pg (27.0-35.0); MCHC 34.2 g/dL (32.0-36.0); MCV 89.3 fL (80-100); MPV 7.2 fL (7.6-11.3); Nucleated RBC Absolute Count 0.0 (0-0); Nucleated Red Blood Cells % 0.0 % (0-0); RBC Red Blood Cell Count 4.48 M/uL (3.86-4.86); White Blood Count 4.80 thou/uL (4.3-10.9)
[2024-10-31 14:38] LABS: ALT/SGPT 25.0 U/L (13-56); AST/SGOT 24.0 U/L (15-37); Albumin 3.8 g/dL (3.4-5.0); Albumin/Globulin Ratio 1.1 (1.1-1.8); Alkaline Phosphatase 79.0 U/L (45-117); Anion Gap 9.7 mEq/L (5.0-15.0); BUN Blood Urea Nitrogen 19.0 mg/dL (7-18); Globulin 3.6 g/dL (2.3-3.5); Glucose Level 116.0 mg/dL (74-106); Lipase 57.0 U/L (13-75); Potassium 3.7 mEq/L (3.5-5.1)
--- NOTE | 2024-10-31 14:45 | RAD REPORT ---
EXAMINATION: Abdomen Pelvis W Contrast CLINICAL INDICATION: Female, 59 years old.LLQ abd pain;Abd pain TECHNIQUE: CT abdomen and pelvis was performed, after the administration of IV contrast, as per [facility]. Axial, sagittal and coronal reconstructions were obtained. One or more of the following dose reduction techniques were used: Automated exposure control, adjustment of the mA and/o r kV according to patient size, and/or iterative reconstruction. Unless otherwise specified, incidental findings do not require dedicated imaging follow-up. [id number]. COMPARISON: 12/22/2022 FINDINGS: LOWER CHEST: No acute process identified.No significant pericardial effusion. Small hiatal hernia. UPPER GI: No significant abnormality. LIVER: Hepatic steatosis, but otherwise unremarkable. GALLBLADDER/BILE DUCTS: No biliary ductal dilatation.? PANCREAS: No mass, ductal dilation, or goyo-pancreatic fluid. SPLEEN: Unremarkable. ADRENALS: No adrenal masses. KIDNEYS AND URETERS: Mild left-sided hydroureteronephrosis secondary to a 3 mm stone in the left dist al ureter..No suspicious renal mass.No renal calculi.No ureteral calculi. ABDOMINAL AORTA AND OTHER VESSELS: Normal caliber aorta and IVC. PERITONEUM: No abnormal free fluid. No free air. LYMPH NODES: No pathologic lymphadenopathy. ABDOMINAL WALL: Unremarkable SMALL BOWEL/COLON: Small bowel has normal course and caliber. No colonic wall thickening or pericolon ic inflammatory changes.Appendectomy. URINARY BLADDER: Underdistended but grossly unremarkable. REPRODUCTIVE ORGANS: No pathologic process. MUSCULOSKELETAL: No acute or suspicious osseous abnormality. ADDITIONAL FINDINGS: None. IMPRESSION: Mild left-sided hydroureteronephrosis secondary to a 3 mm stone in the left distal ureter.
[2024-10-31] MEDS ORDERED: Levofloxacin500mg IV 500 MG/100 ML BAG IV ONE (15:32)
--- NOTE | 2024-10-31 15:34 | EDPHYS ---
Physician Documentation [facility] Name: Demetria Salazar Age: 59 yrs Sex: Female : 1965 Arrival Date: 10/31/2024 Time: 13:41 Bed 5 Private MD: ED Physician Eliu Ruelas HPI: 10/31 15:27 This 59 yrs old Female presents to ER via Ambulatory with complaints of Left lower sp3 quadrant abd pain. 15:27 59-year-old female with history of hypothyroidism, status post appendectomy and sp3 , and history of renal insufficiency now presents to the ED with left lower quadrant abdominal pain that started abruptly early this morning. Patient states that pain comes and goes. She denies any other symptoms including fever, chest pain, shortness of breath, back pain, flank pain, dysuria, gross visualized hematuria, vomiting, diarrhea but does endorse nausea. Remainder of ROS negative. Patient has never had a kidney stone in the past.. Historical: - Allergies: 14:00 Aspirin; hb 14:00 Codeine; hb - PMHx: 14:00 Hypothyroidism; hb - PSHx: 14:00 Appendectomy; section; hb - Immunization history:: Adult Immunizations unknown. - Infectious Disease History:: Denies. - Social history:: Smoking status: unknown. ROS: 15:28 Constitutional: Negative for fever, chills, and weight loss, Eyes: Negative for injury, sp3 pain, redness, and discharge, Neck: Negative for injury, pain, and swelling, Cardiovascular: Negative for chest pain, palpitations, and edema, Respiratory: Negative for shortness of breath, cough, wheezing, and pleuritic chest pain, Back: Negative for injury and pain, MS/Extremity: Negative for injury and deformity, Skin: Negative for injury, rash, and discoloration, Neuro: Negative for headache, weakness, numbness, tingling, and seizure, Psych: Negative for depression, anxiety, suicide ideation, homicidal ideation, and hallucinations, Allergy/Immunology: Negative for hives, rash, and allergies, Endocrine: Negative for neck swelling, polydipsia, polyuria, polyphagia, and marked weight changes, Hematologic/Lymphatic: Negative for swollen nodes, abnormal bleeding, and unusual bruising, 15:28 All other systems are negative, Exam: 15:28 Constitutional: This is a well developed, well nourished patient who is awake, alert, sp3 and in no acute distress. Head/Face: Normocephalic, atraumatic. Eyes: Pupils equal round and reactive to light, extra-ocular motions intact. Lids and lashes normal. Conjunctiva and sclera are non-icteric and not injected. Cornea within normal limits. Periorbital areas with no swelling, redness, or edema. Neck: Trachea midline, no thyromegaly or masses palpated, and no cervical lymphadenopathy. Supple, full range of motion without nuchal rigidity, or vertebral point tenderness. No Meningismus. Chest/axilla: Normal chest wall appearance and motion. Nontender with no deformity. No lesions are appreciated. Cardiovascular: Regular rate and rhythm with a normal S1 and S2. No gallops, murmurs, or rubs. Normal PMI, no JVD. No pulse deficits. Respiratory: Lungs have equal breath sounds bilaterally, clear to auscultation and percussion. No rales, rhonchi or wheezes noted. No increased work of breathing, no retractions or nasal flaring. Back: No spinal tenderness. No costovertebral tenderness. Full range of motion. Skin: Warm, dry with normal turgor. Normal color with no rashes, no lesions, and no evidence of cellulitis. MS/ Extremity: Pulses equal, no cyanosis. Neurovascular intact. Full, normal range of motion. Neuro: Awake and alert, GCS 15, oriented to person, place, time, and situation. Cranial nerves II-XII grossly intact. Motor strength 5/5 in all extremities. Sensory grossly intact. Cerebellar exam normal. Normal gait. Psych: Awake, alert, with orientation to person, place and time. Behavior, mood, and affect are within normal limits. 15:28 Abdomen/GI: Left lower quadrant abdominal pain to palpation without peritoneal signs, rebound or guarding., Vital Signs: 13:59 BP 128 / 84; Pulse 75; Resp 16; Temp 98; Pulse Ox 100% on R/A; Pain 7/10; hb 14:08 BP 101 / 69; Pulse 61; Resp 16; Pulse Ox 100% on R/A; db 15:30 BP 115 / 85; Pulse 61; Resp 16; Pulse Ox 99% on R/A; db 16:00 BP 107 / 74; Pulse 63; Resp 16; Pulse Ox 98% on R/A; db 13:59 Pain Scale: Adult hb MDM: 13:59 Medical Screening Exam initiated sp3 15:28 Data reviewed: vital signs, nurses notes, lab test result(s), radiologic studies. ED sp3 course: 59-year-old female with left lower quadrant abdominal pain. Differential diagnosis includes diverticulitis, colitis, kidney stone, UTI/pyelonephritis spectrum, CLAY WASHER pathology, musculoskeletal, among others. Workup will include CT scan of the abdomen pelvis with IV contrast, UA, general labs and treatment with ketorolac and IV fluids since patient will be driving and she declined any narcotic pain medications. CT demonstrates 3 mm stone in the distal left ureter. UA demonstrates infection. Patient's creatinine at 1.4. Unknown if this is baseline or due to backflow. Hydronephrosis is small. Stone is only 3 mm and I do not believe is the culprit of patient's renal insufficiency. I have offered patient transfer to [facility] for admission and urology consultation and IV antibiotics but patient declined stating that she does not want to be transferred anywhere. She states she wants to be treated at home and understands the risks. I told her she may return at any time if she changes her mind. We will give her 1 dose of IV Levaquin here in the ED and discharged her on p.o. Levaquin, Flomax and pain medications. She knows she may return at any time if she changes her mind. This will be an informed discharge and treated like an AGAINST MEDICAL ADVICE as well.. 10/31 14:00 Order name: CBC with Diff; Complete Time: 14:54 sp3 10/31 14:00 Order name: CMP; Complete Time: 14:54 sp3 10/31 14:00 Order name: Lipase; Complete Time: 14:54 sp3 10/31 14:00 Order name: UA Rfx Jose Cult if indicated; Complete Time: 14:54 sp3 10/31 14:21 Order name: Urine Culture EDWY 10/31 14:00 Order name: CT Abd/Pelvis - IV Contrast Only; Complete Time: 14:54 sp3 10/31 14:00 Order name: IV Saline Lock; Complete Time: 14:14 sp3 10/31 14:00 Order name: Labs collected and sent; Complete Time: 14:14 sp3 Administered Medications: 14:15 Drug: TORadol - Ketorolac IVP 15 mg IVP once Route: IVP; Site: left antecubital; db 16:43 Follow up: Response: No adverse reaction db 14:15 Drug: Ondansetron IVP 4 mg IVP once; over 2 minutes Route: IVP; Site: left antecubital; db 16:43 Follow up: Response: No adverse reaction db 14:15 Drug: NS 0.9% IV 1000 ml IV at 1 bolus Per protocol; to be given as a bolus over 60 db minutes Route: IV; Rate: 1 bolus; Site: right antecubital; 16:43 Follow up: Response: No adverse reaction; IV Status: Completed infusion; IV Intake: db 1000ml 15:37 Drug: levofloxacin IVPB 500 mg 100 ml IVPB once over 60 mins Volume: 100 ml; Route: db IVPB; Infused Over: 60 mins; Site: right antecubital; 16:43 Follow up: Response: No adverse reaction; IV Status: Completed infusion; IV Intake: db 100ml Disposition Summary: 10/31/24 15:34 Discharge Ordered Notes: Location: Home sp3 Condition: Stable sp3 Diagnosis - Ureterolithiasis, kidney stone, UTI, renal insufficiency, informed sp3 discharge/AGAINST MEDICAL ADVICE Followup: sp3 - With: Aldair Maria MD - When: Upon discharge from the Emergency Department - Reason: Continuance of care Discharge Instructions: - Discharge Summary Sheet sp3 - Kidney Stones sp3 - Urinary Tract Infection, Adult sp3 Forms: - Medication Reconciliation Form sp3 - Antibiotic Education sp3 - Prescription Opioid Use sp3 - Patient Portal Instructions sp3 - Leadership Thank You Letter sp3 - Work release form db Prescriptions: - Flomax 0.4 mg Oral capsule - take 1 capsule ORAL route daily; 7 capsule; Refills: 0, Product Selection sp3 Permitted - Diclofenac Sodium 75 mg Oral Tablet Sustained Release - take 1 tablet ORAL route 2 times per day; 30 tablet; Refills: 0, Product sp3 Selection Permitted - Tramadol 50 mg Oral Tablet - take 1 tablet ORAL route every 8 hours as needed; 12 tablet; Refills: 0, sp3 Product Selection Permitted - levofloxacin 500 mg Oral tablet - take 1 tablet ORAL route once daily for 7 days; 7 tablet; Refills: 0, Product sp3 Selection Permitted Signatures: Dispatcher [employer] EDMS Genoveva Dejesus, RN RN hb Eliu Ruelas MD MD sp3 Kindra Chung RN RN db Corrections: (The following items were deleted from the chart) 14: 14:01 CBC+H.LAB.BRZ ordered. EDMS EDMS 14: 14:01 COMPREHENSIVE METABOLIC PANEL+C.LAB.BRZ ordered. EDMS EDMS 14: 14:01 LIPASE+C.LAB.BRZ ordered. EDMS EDMS 14: 14:01 UA Rfx Jose Cult if indicated+U.LAB.BRZ ordered. EDMS EDMS
--- NOTE | 2024-10-31 15:34 | ER ---
Nurse's Notes [facility] Name: Demetria Salazar Age: 59 yrs Sex: Female : 1965 Arrival Date: 10/31/2024 Time: 13:41 Bed 5 Private MD: Diagnosis: Ureterolithiasis, kidney stone, UTI, renal insufficiency, informed discharge/AGAINST MEDICAL ADVICE Presentation: 10/31 13:59 Chief complaint: Sharp left sided abdominal pain x 2 hours. Coronavirus screen: At this hb time, the client does not indicate any symptoms associated with coronavirus-19. Ebola Screen: No symptoms or risks identified at this time. Initial Sepsis Screen: Does the patient meet any 2 criteria? No. Patient's initial sepsis screen is negative. Does the patient have a suspected source of infection? No. Patient's initial sepsis screen is negative. Risk Assessment: Do you want to hurt yourself or someone else? Patient reports no desire to harm self or others. Onset of symptoms was October 31, 2024. 13:59 Method Of Arrival: Ambulatory hb 13:59 Acuity: EBONY 3 hb Historical: - Allergies: 14:00 Aspirin; hb 14:00 Codeine; hb - PMHx: 14:00 Hypothyroidism; hb - PSHx: 14:00 Appendectomy; section; hb - Immunization history:: Adult Immunizations unknown. - Infectious Disease History:: Denies. - Social history:: Smoking status: unknown. Screenin:40 [facility] ED Fall Risk Assessment (Adult) History of falling in the last 3 months, db including since admission No falls in past 3 months (0 pts) Confusion or Disorientation No (0 pts) Intoxicated or Sedated No (0 pts) Impaired Gait No (0 pts) Mobility Assist Device Used No (0 pt) Altered Elimination No (0 pt) Score/Fall Risk Level 0 - 2 = Low Risk Oriented to surroundings, Maintained a safe environment. Abuse screen: Denies threats or abuse. Denies injuries from another. Nutritional screening: No deficits noted. Tuberculosis screening: No symptoms or risk factors identified. Assessment: 14:05 Reassessment: Patient appears in no apparent distress at this time. Patient and/or db family updated on plan of care and expected duration. Pain level reassessed. Patient is alert, oriented x 3, equal unlabored respirations, skin warm/dry/pink. General: Appears in no apparent distress. comfortable, Behavior is calm, cooperative. Neuro: Level of Consciousness is awake, alert, obeys commands, Oriented to person, place, time, situation. Respiratory: Airway is patent Respiratory effort is even, unlabored, Respiratory pattern is regular, symmetrical. 15:41 Reassessment: PT OFFERED TO BE TRANSFERRED FOR CONTINUED CARE. REFUSED TRANSFER STATES db DOES NOT WANT TO BE ADMITTED AND REQUESTS O BE TREATED AND SENT HOME. PROVIDER AWARE. 15:42 Reassessment: Patient appears in no apparent distress at this time. Patient and/or db family updated on plan of care and expected duration. Pain level reassessed. Patient is alert, oriented x 3, equal unlabored respirations, skin warm/dry/pink. 16:39 Reassessment: Patient appears in no apparent distress at this time. Patient and/or db family updated on plan of care and expected duration. Pain level reassessed. Patient is alert, oriented x 3, equal unlabored respirations, skin warm/dry/pink. General: Appears in no apparent distress. comfortable, Behavior is calm, cooperative. Pain: Complains of pain in abdomen. Vital Signs: 13:59 BP 128 / 84; Pulse 75; Resp 16; Temp 98; Pulse Ox 100% on R/A; Pain 7/10; hb 14:08 BP 101 / 69; Pulse 61; Resp 16; Pulse Ox 100% on R/A; db 15:30 BP 115 / 85; Pulse 61; Resp 16; Pulse Ox 99% on R/A; db 16:00 BP 107 / 74; Pulse 63; Resp 16; Pulse Ox 98% on R/A; db 13:59 Pain Scale: Adult hb ED Course: 13:43 Patient arrived in ED. al6 13:50 Eliu Ruelas MD is Attending Physician. sp3 13:59 Triage completed. hb 14:01 Kindra Chung, RN is Primary Nurse. db 14:14 Initial lab(s) drawn, by me, sent to lab. Inserted saline lock: 20 gauge in right rk3 antecubital area, using aseptic technique. Blood collected. Flushed with 10 mL NS. 14:21 CT Abd/Pelvis - IV Contrast Only In Process Unspecified. EDMS 15:30 Aldair Maria MD is Referral Physician. sp3 15:40 Patient has correct armband on for positive identification. Bed in low position. Call db light in reach. Side rails up X 1. Pulse ox on. NIBP on. Warm blanket given. Pillow given. 16:39 No provider procedures requiring assistance completed. IV discontinued, intact, db bleeding controlled, No redness/swelling at site. 16:39 Provided Education on: DISCHARGE AND FOLLOWUP. db 16:43 Arm band placed on. db Administered Medications: 14:15 Drug: TORadol - Ketorolac IVP 15 mg IVP once Route: IVP; Site: left antecubital; db 16:43 Follow up: Response: No adverse reaction db 14:15 Drug: Ondansetron IVP 4 mg IVP once; over 2 minutes Route: IVP; Site: left antecubital; db 16:43 Follow up: Response: No adverse reaction db 14:15 Drug: NS 0.9% IV 1000 ml IV at 1 bolus Per protocol; to be given as a bolus over 60 db minutes Route: IV; Rate: 1 bolus; Site: right antecubital; 16:43 Follow up: Response: No adverse reaction; IV Status: Completed infusion; IV Intake: db 1000ml 15:37 Drug: levofloxacin IVPB 500 mg 100 ml IVPB once over 60 mins Volume: 100 ml; Route: db IVPB; Infused Over: 60 mins; Site: right antecubital; 16:43 Follow up: Response: No adverse reaction; IV Status: Completed infusion; IV Intake: db 100ml Medication: 16:39 VIS not applicable for this client. db Intake: 16:43 IV: 100ml; Total: 100ml. db 16:43 IV: 1000ml; Total: 1100ml. db Outcome: 15:34 Discharge ordered by sp3 16:39 Discharged to home ambulatory, db 16:39 Condition: stable 16:39 Discharge instructions given to patient, Instructed on discharge instructions, follow up and referral plans. Prescriptions given X 4, 16:43 Patient left the ED. db Signatures: Dispatcher [employer] EDGenoveva Nino, RN RN Eliu Larson MD MD sp3 Kindra Chung RN RN db Katelin Navarro al6 Juan F Barnes rk3
[2024-10-31 17:17] VITALS: TEMP 98
[2024-10-31 17:21] VITALS: BP 107/74; O2SAT 98
== END 2024-10-31 16:43 | disposition home or self-care (01) ==
LOC: ER 13:41
DX: N20.2 Calculus of kidney with calculus of ureter (principal); N39.0 Urinary tract infection, site not specified; N28.9 Disorder of kidney and ureter, unspecified
CPT/HCPCS: 96365; 96361; 87088; 85025; 81001; 87086; 36415; 83690; 80053; 74177; 96375; 99284; Q9967; J2405; J7030

== ENCOUNTER 2024-12-09 14:29 | Emergency (ER) | payer OTHER ==
[2024-12-09 15:17] LABS: Influenza A Ag Negative; Influenza B Ag Negative; SARS-CoV-2 Antigen Rapid Res Negative (Negative)
--- NOTE | 2024-12-09 15:27 | ER ---
Nurse's Notes [facility] Name: Demetria Salazar Age: 59 yrs Sex: Female : 1965 Arrival Date: 12/09/2024 Time: 14:29 Bed 9 Private MD: Diagnosis: Pain in throat Presentation: 12/09 14:37 Chief complaint: Patient states: L sided ear ache and sore throat started today. Had ll1 tooth pulled this past week. Coronavirus screen: Client denies travel out of the [place] in the last 14 days. At this time, the client does not indicate any symptoms associated with coronavirus-19. Ebola Screen: Patient denies travel to an Ebola-affected area in the 21 days before illness onset. Initial Sepsis Screen: Does the patient meet any 2 criteria? No. Patient's initial sepsis screen is negative. Does the patient have a suspected source of infection? No. Patient's initial sepsis screen is negative. Risk Assessment: Do you want to hurt yourself or someone else? Patient reports no desire to harm self or others. 14:37 Method Of Arrival: Ambulatory [facility] 14:37 Acuity: EBONY 4 ll1 14:37 Onset of symptoms was December 09, 2024. 1 Triage Assessment: 14:38 General: Appears uncomfortable, Behavior is calm, cooperative, appropriate for age. ll1 Pain: Complains of pain in L ear Pain radiates to L side of throat. EENT: Reports pain in left ear when swallowing. Neuro: No deficits noted. Cardiovascular: No deficits noted. Respiratory: No deficits noted. Historical: - Allergies: 14:38 Aspirin; ll1 14:38 Codeine; ll1 - PMHx: 14:38 Hypothyroidism; ll1 - PSHx: 14:38 Appendectomy; section; ll1 - Immunization history:: Adult Immunizations up to date. - Infectious Disease History:: Denies. - Social history:: Smoking status: Patient denies any tobacco usage or history of. Screenin:04 [facility] ED Fall Risk Assessment (Adult) History of falling in the last 3 months, kj2 including since admission No falls in past 3 months (0 pts) Confusion or Disorientation No (0 pts) Intoxicated or Sedated No (0 pts) Impaired Gait No (0 pts) Mobility Assist Device Used No (0 pt) Altered Elimination No (0 pt) Score/Fall Risk Level 0 - 2 = Low Risk Maintained a safe environment, Hourly rounding (assess needs \T\ fall precautionary measures) done. Abuse screen: Denies threats or abuse. Denies injuries from another. Nutritional screening: No deficits noted. Tuberculosis screening: No symptoms or risk factors identified. Assessment: 15:03 General: Appears in no apparent distress. Behavior is cooperative. Pain: Complains of kj2 pain in left ear and upper left third molar Pain currently is 6 out of 10 on a pain scale. Neuro: Level of Consciousness is awake, alert, obeys commands, Oriented to person, place, time, situation. Cardiovascular: Patient's skin is warm and dry. Respiratory: Airway Respiratory effort is unlabored. GI: No signs and/or symptoms were reported involving the gastrointestinal system. : No signs and/or symptoms were reported regarding the genitourinary system. EENT: Reports pain in left ear. 15:46 Reassessment: Patient appears in no apparent distress at this time. Patient and/or kj2 family updated on plan of care and expected duration. Pain level reassessed. Patient is alert, oriented x 3, equal unlabored respirations, skin warm/dry/pink. Vital Signs: 14:37 BP 123 / 80; Pulse 78; Resp 16; Temp 97.3; Pulse Ox 100% ; Weight 64.86 kg; Height 5 ll1 ft. 2 in. ; Pain 8/10; 14:37 Body Mass Index 26.15 (64.86 kg, 157.48 cm) ll1 14:37 Pain Scale: Adult ll1 ED Course: 14:31 Patient arrived in ED. im 14:33 Nicole Lopez FNP-C is PHCP. kb 14:33 Dk Silver MD is Attending Physician. kb 14:37 Triage completed. ll1 14:42 Arm band placed on Patient placed in an exam room, on a stretcher. ll1 15:00 Provided Education on: ER procedures and process. ll1 15:00 Warm blanket given. ll1 15:00 Report received from GOMEZ Freedman. kj2 15:02 Alka Griggs RN is Primary Nurse. kj2 15:05 Patient has correct armband on for positive identification. Bed in low position. Call kj2 light in reach. Side rails up X 1. 15:06 No provider procedures requiring assistance completed. kj2 15:47 Patient did not have IV access during this emergency room visit. kj2 Administered Medications: No medications were administered Medication: 15:05 VIS not applicable for this client. kj2 Outcome: 15:27 Discharge ordered by . kb 15:46 Discharged to home ambulatory, kj2 15:46 Condition: stable 15:46 Discharge instructions given to patient, Instructed on discharge instructions, follow up and referral plans. Demonstrated understanding of instructions, medications, 15:49 Patient left the ED. kj2 Signatures: Nicole Lopez, ASSOCIATE TEAM PHYSICIAN-C ASSOCIATE TEAM PHYSICIAN-CkTano Adam, RN RN ll1 Yelena Simmons Krystal, RN RN kj2 Corrections: (The following items were deleted from the chart) 14:42 14:37 Chief complaint: Patient states: L sided ear ache and sore throat for 2 days. Had ll1 tooth pulled this past week ll1 14:42 14:37 64.86 kg; Height 5 ft. 2 in.; BMI: 26.1; Pain 8/10, Adult; ll1 ll1
--- NOTE | 2024-12-09 15:27 | EDPHYS ---
Physician Documentation [facility] Name: Demetria Salazar Age: 59 yrs Sex: Female : 1965 Arrival Date: 12/09/2024 Time: 14:29 Bed 9 Private MD: ED Physician Dk Silver HPI: 12/09 14:41 This 59 yrs old Female presents to ER via Ambulatory with complaints of Ear Pain, Sore kb Throat. 14:41 Pt is a 59 year old female who presents for left ear pain and sore throat that started kb this morning. Denies fever. States she had a tooth extracted 5 days ago from left upper jaw. . Historical: - Allergies: 14:38 Aspirin; ll1 14:38 Codeine; ll1 - PMHx: 14:38 Hypothyroidism; ll1 - PSHx: 14:38 Appendectomy; section; ll1 - Immunization history:: Adult Immunizations up to date. - Infectious Disease History:: Denies. - Social history:: Smoking status: Patient denies any tobacco usage or history of. ROS: 14:44 Constitutional: As per HPI kb Exam: 14:44 Constitutional: This is a well developed, well nourished patient who is awake, alert, kb and in no acute distress. Head/Face: Normocephalic, atraumatic. ENT: Moist Mucous membranes Cardiovascular: Regular rate Respiratory: Respirations even and unlabored. No increased work of breathing. Talking in full sentences Skin: Warm, dry with normal turgor. Normal color. MS/ Extremity: Pulses equal, no cyanosis. Neurovascular intact. Full, normal range of motion. Neuro: Awake and alert, GCS 15, oriented to person, place, time, and situation. 14:44 ENT: External ear(s): are unremarkable, Ear canal(s): are normal, TM's: are normal, Mouth: Gums: reddened, on the upper left third molar, Posterior pharynx: Airway: normal, Tonsils: bilaterally enlarged, with erythema, swelling, that is mild, erythema, that is mild, Vital Signs: 14:37 BP 123 / 80; Pulse 78; Resp 16; Temp 97.3; Pulse Ox 100% ; Weight 64.86 kg; Height 5 ll1 ft. 2 in. ; Pain 8/10; 14:37 Body Mass Index 26.15 (64.86 kg, 157.48 cm) ll1 14:37 Pain Scale: Adult ll1 MDM: 14:33 Medical Screening Exam initiated kb 15:25 Differential diagnosis: otitis media, otitis externa, ruptured TM, foreign body, acute kb otalgia, strep, dental infection. Data reviewed: vital signs, nurses notes. Counseling: I had a detailed discussion with the patient and/or guardian regarding the historical points, exam findings, and any diagnostic results supporting the discharge/admit diagnosis, lab results, the need for outpatient follow up, a dentist, a family practitioner, to return to the emergency department if symptoms worsen or persist or if there are any questions or concerns that arise at home. ED course: Pt has amoxicillin that was prescribed by dentist to take if needed. Recommended she take the antibiotic and follow up with dentist due to pain and erythema to extraction site. 12/09 14:41 Order name: COVID-19 Ag + Flu A+B Ag; Complete Time: 15:25 kb 12/09 14:41 Order name: Group A Streptococcus Rapid; Complete Time: 15:25 kb 12/09 15:20 Order name: Throat Culture EDMS Administered Medications: No medications were administered Disposition: 17:55 Co-signature as Attending Physician, Dk Silver MD I reviewed the patient's care rn provided by the Advanced Practice Provider and agree with the diagnosis and treatment plan. Disposition Summary: 12/09/24 15:27 Discharge Ordered Notes: Location: Home kb Condition: Stable kb Diagnosis - Pain in throat kb Followup: kb - With: Emergency Department - When: - Reason: Worsening of condition Followup: kb - With: Private Physician - When: 2 - 3 days - Reason: Recheck today's complaints, Continuance of care, Re-evaluation by your physician Discharge Instructions: - Discharge Summary Sheet kb - Sore Throat, [id number] kb Forms: - Medication Reconciliation Form kb - Antibiotic Education kb - Prescription Opioid Use kb - Patient Portal Instructions kb - Leadership Thank You Letter kb Signatures: Dispatcher [employer] EDMS Nicole Lopez FNP-C FNP-Dk Oneal MD MD rn Lewis, Lynsay RN RN ll1 Alka Griggs RN RN kj2
[2024-12-09 16:52] VITALS: BP 123/80; TEMP 97.3; O2SAT 100
== END 2024-12-09 15:49 | disposition home or self-care (01) ==
LOC: ER 14:29
DX: R07.0 Pain in throat (principal); H92.02 Otalgia, left ear; Z98.818 Other dental procedure status; Z11.52 Encounter for screening for COVID-19
CPT/HCPCS: 36415; 87070; 87428; 99282

== ENCOUNTER 2024-12-12 14:51 | Emergency (ER) | payer OTHER ==
[2024-12-12 16:21] LABS: Absolute Lymphocytes (CBC) 1.9 K/uL (0.7-4.9); Hematocrit 38.1 % (36.0-45.0); Hemoglobin 13.0 g/dL (12.0-15.0); MCH 30.6 pg (27.0-35.0); MCHC 34.1 g/dL (32.0-36.0); MCV 89.5 fL (80-100); MPV 7.4 fL (7.6-11.3); Nucleated RBC Absolute Count 0.0 (0-0); Nucleated Red Blood Cells % 0.0 % (0-0); RBC Red Blood Cell Count 4.26 M/uL (3.86-4.86); White Blood Count 10.20 thou/uL (4.3-10.9)
[2024-12-12 16:37] LABS: Anion Gap 8.5 mEq/L (5.0-15.0); BUN Blood Urea Nitrogen 18.0 mg/dL (7-18); Glucose Level 99.0 mg/dL (74-106); Potassium 4.5 mEq/L (3.5-5.1)
--- NOTE | 2024-12-12 17:43 | RAD REPORT ---
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 Sagittal and coronal reformations wer e generated. This exam was performed according to our departmental dose-optimization program, which includes automated exposure control, adjustment of the mA and/or kV according to patient size and/or use of iterative reconstruction technique. COMPARISON: No prior exams FINDINGS: Aerodigestive Tract Structures: Enhancing fluid collection at the left tonsillar fossa measuring 16 x 15 x 17 mm. This results in some narrowing of the airway. Pharyngeal enhancement is noted. Lymph Nodes: Left cervical chain adenopathy which is probably reactive. A left level 2 cervical chain lymph node measures 11 mm. Parotid Glands: Normal Submandibular Glands: Normal Thyroid Gland: Normal Included Intracranial Structures: Normal Included Orbits: Normal Paranasal Sinuses: Predominantly clear Tympanomastoid Cavities: Normal Vascular Structures: Normal Osseous Structures: No acute osseous abnormality. Included Lung Apices: Normal IMPRESSION: Left tonsillar abscess measuring up to 1.7 cm. No critical narrowing of the airway. Left cervical henri in lymph nodes which are mildly enlarged and are probably reactive. Clinical follow-up is recommended to exclude a neoplasm.
--- NOTE | 2024-12-12 17:59 | EDPHYS ---
Physician Documentation [facility] Name: Demetria Salazar Age: 59 yrs Sex: Female : 1965 Arrival Date: 12/12/2024 Time: 14:51 Bed 20 Private MD: ED Physician Jesus Olivia HPI: 12/12 16:38 This 59 yrs old Female presents to ER via Ambulatory with complaints of Allergic ms3 Reaction, Hives. 16:38 59-year-old female past medical history of hypothyroidism presents to the emergency ms3 department for throat pain. Patient states she was seen December 10 and given Solu-Medrol IM Bicillin LA. Patient took amoxicillin on December 10 and December 12 and developed hives after her third dose. Patient states she took Benadryl 50 mg without change. Patient states her hives have resolved at time of interview. Patient notes she is having difficulty swallowing and was told she had a mass in the back of her throat. Patient states she is having moderate to throat discomfort. She denies any alleviating factors. Patient states pain is worse with swallowing. Historical: - Allergies: 16:18 Aspirin; kj2 16:18 Codeine; kj2 - PMHx: 16:18 Hypothyroidism; kj2 - PSHx: 16:18 Appendectomy; section; kj2 - Immunization history:: Adult Immunizations unknown. - Infectious Disease History:: Denies. - Social history:: Smoking status: Patient/guardian denies using tobacco products. ROS: 16:38 Constitutional: Negative for fever, and chills. Cardiovascular: Negative for chest ms3 pain, and palpitations. Respiratory: Negative for shortness of breath, cough, wheezing, and pleuritic chest pain, 16:38 MS/Extremity: Negative for injury and deformity, Skin: Negative for injury, rash, and discoloration, 16:38 ENT: Positive for sore throat, Exam: 16:38 Constitutional: This is a well developed, well nourished patient who is awake, alert, ms3 and in no acute distress. Cardiovascular: Regular rate and rhythm with a normal S1 and S2. No gallops, murmurs, or rubs. Normal PMI, no JVD. No pulse deficits. Respiratory: Lungs have equal breath sounds bilaterally, clear to auscultation and percussion. No rales, rhonchi or wheezes noted. No increased work of breathing, no retractions or nasal flaring. Abdomen/GI: Soft, non-tender, with normal bowel sounds. No distension or tympany. No guarding or rebound. No evidence of tenderness throughout. Skin: Warm, dry with normal turgor. Normal color with no rashes, no lesions, and no evidence of cellulitis. MS/ Extremity: Pulses equal, no cyanosis. Neurovascular intact. Full, normal range of motion. 16:38 ENT: Posterior pharynx: Tonsils: bilaterally enlarged, with erythema, Uvula: midline, non-edematous, no erythema, swelling, that is mild, Vital Signs: 16:15 BP 123 / 77; Pulse 83; Resp 18; Pulse Ox 100% ; Weight 64.41 kg; Height 5 ft. 2 in. 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 ms3 17:57 Management of patient was discussed with the following: Professor Of Criminal Justice: Dr Silva. Place ms3 patient on Clindamycin, give Dexamethasone. Patient to follow up in clinic at 12 pm tomorrow for drainage.. 17:59 Data reviewed: vital signs, nurses notes, lab test result(s), radiologic studies, and ms3 as a result, I will discharge patient. I considered the following discharge prescriptions or medication management in the emergency department Medications were administered in the Emergency Department. See MAR. Counseling: I had a detailed discussion with the patient and/or guardian regarding the historical points, exam findings, and any diagnostic results supporting the discharge/admit diagnosis, lab results, radiology results, the need for outpatient follow up, to return to the emergency department if symptoms worsen or persist or if there are any questions or concerns that arise at home. Special discussion: I discussed with the patient/guardian in detail that at this point there is no indication for admission to the hospital. It is understood, however, that if the symptoms persist or worsen the patient needs to return immediately for re-evaluation. ED course: Discussed CT findings with the patient showing 1.7 cm tonsillar abscess. Discussed my conversation with Dr. Silva with patient. Patient to follow-up with Dr. Silva at 12 PM tomorrow for tonsillar abscess drainage. Discussed prescription for clindamycin with patient. Patient to understands and agrees with plan. All questions were answered. Return precautions were discussed include shortness of breath, worsening symptoms, or any other concerns.. 18:01 Independent interpretation of the following test(s) in the Emergency Department CT ms3 Scan: My interpretation is CT soft tissue neck reviewed by me shows left sided abscess. 12/12 15:13 Order name: CBC with Diff; Complete Time: 16:38 ms3 12/12 15:13 Order name: BMP; Complete Time: 16:38 ms3 12/12 15:13 Order name: CT Soft Tissue Neck W/contr; Complete Time: 17:47 ms3 Administered Medications: 18:21 Drug: Clindamycin PO 300 mg PO once Route: PO; kj2 18:21 Follow up: Response: Medication administered at discharge. kj2 18:21 Drug: Decadron - Dexamethasone IVP 10 mg IVP once Route: IVP; Site: left antecubital; kj2 18:21 Follow up: Response: Medication administered at discharge. kj2 Disposition Summary: 12/12/24 17:58 Discharge Ordered Notes: Location: Home ms3 Condition: Stable ms3 Diagnosis - Tonsillar abscess ms3 Followup: ms3 - With: Anum Silva MD - When: Tomorrow - Reason: Continuance of care Discharge Instructions: - Discharge Summary Sheet ms3 - Peritonsillar Abscess, [id number] ms3 Forms: - Medication Reconciliation Form ms3 - Antibiotic Education ms3 - Prescription Opioid Use ms3 - Patient Portal Instructions ms3 - Leadership Thank You Letter ms3 Prescriptions: - Clindamycin HCl 300 mg Oral Capsule - take 1 capsule ORAL route every 6 hours for 10 days; 40 capsule; Refills: 0, ms3 Product Selection Permitted Signatures: Dispatcher [employer] EDMS Jesus Olivia DO DO ms3 Alka Griggs RN RN kj2 Corrections: (The following items were deleted from the chart) 15:13 15:13 Soft Tissue Neck W/Contr+CT.RAD.BRZ ordered. EDMS EDMS
--- NOTE | 2024-12-12 17:59 | ER ---
Nurse's Notes [facility] Name: Demetria Salazar Age: 59 yrs Sex: Female : 1965 Arrival Date: 12/12/2024 Time: 14:51 Bed 20 Private MD: Diagnosis: Tonsillar abscess Presentation: 12/12 16:15 Chief complaint: Patient states: throat is sore when swallowing and told by her doctor kj2 she has a cyst on her throat. Coronavirus screen: Client denies travel out of the [place] in the last 14 days. Ebola Screen: No symptoms or risks identified at this time. Onset: The symptoms/episode began/occurred last week. Anaphylaxis evaluation, the patient reports or I have noted the following symptoms which indicate a significant risk of anaphylaxis: lump in the throat which may suggest laryngeal edema. Initial Sepsis Screen: Does the patient meet any 2 criteria? No. Patient's initial sepsis screen is negative. Does the patient have a suspected source of infection? No. Patient's initial sepsis screen is negative. Risk Assessment: Do you want to hurt yourself or someone else? Patient reports no desire to harm self or others. Onset of symptoms was December 07, 2024. 16:15 Method Of Arrival: Ambulatory [facility] 16:15 Acuity: EBONY 3 kj2 Triage Assessment: 16:19 General: Appears in no apparent distress. Behavior is calm, cooperative. Pain: kj2 Complains of pain in right aspect of thyroid and left aspect of thyroid Pain currently is 0 out of 10 on a pain scale. EENT: Reports pain when swallowing. Neuro: Level of Consciousness is awake, alert, Oriented to person, place, time, situation. Cardiovascular: Patient's skin is warm and dry. Respiratory: Airway is patent Respiratory effort is unlabored. GI: No signs and/or symptoms were reported involving the gastrointestinal system. : No signs and/or symptoms were reported regarding the genitourinary system. Historical: - Allergies: 16:18 Aspirin; kj2 16:18 Codeine; kj2 - PMHx: 16:18 Hypothyroidism; kj2 - PSHx: 16:18 Appendectomy; section; kj2 - Immunization history:: Adult Immunizations unknown. - Infectious Disease History:: Denies. - Social history:: Smoking status: Patient/guardian denies using tobacco products. Screenin:21 [facility] ED Fall Risk Assessment (Adult) History of falling in the last 3 months, kj2 including since admission No falls in past 3 months (0 pts) Confusion or Disorientation No (0 pts) Intoxicated or Sedated No (0 pts) Impaired Gait No (0 pts) Mobility Assist Device Used No (0 pt) Altered Elimination No (0 pt) Score/Fall Risk Level 0 - 2 = Low Risk Maintained a safe environment, Hourly rounding (assess needs \T\ fall precautionary measures) done. Abuse screen: Denies threats or abuse. Denies injuries from another. Nutritional screening: No deficits noted. Tuberculosis screening: No symptoms or risk factors identified. Assessment: 16:20 Respiratory: Airway is patent Respiratory effort is unlabored, Breath sounds are clear. kj2 16:21 General: see triage assessment. kj2 17:21 Reassessment: Patient appears in no apparent distress at this time. Patient and/or kj2 family updated on plan of care and expected duration. Pain level reassessed. Patient is alert, oriented x 3, equal unlabored respirations, skin warm/dry/pink. 18:05 Reassessment: Patient appears in no apparent distress at this time. kj2 Vital Signs: 16:15 BP 123 / 77; Pulse 83; Resp 18; Pulse Ox 100% ; Weight 64.41 kg; Height 5 ft. 2 in. ; kj2 Pain 0/10; 17:21 BP 113 / 68; Pulse 91; Resp 18; Pulse Ox 100% ; kj2 18:22 BP 116 / 70; Pulse 88; Resp 20; Temp 98; Pulse Ox 100% on R/A; kj2 16:15 Body Mass Index 25.97 (64.41 kg, 157.48 cm) kj2 16:15 Pain Scale: Adult kj2 ED Course: 14:55 Patient arrived in ED. im 14:55 Jesus Olivia DO is Attending Physician. ms3 15:25 Radiology exam delayed due to lab results not completed at this time. IV insertion jc4 attempt and/or patient not having appropriate IV at this time. 15:44 Alka Griggs, RN is Primary Nurse. kj2 15:57 Radiology exam delayed due to lab results not completed at this time. (BUN/Creatinine) nj IV insertion attempt and/or patient not having appropriate IV at this time. 16:05 Inserted saline lock: 22 gauge in left antecubital area, using aseptic technique. Blood kj2 collected. Flushed with 10 mL NS. 16:18 Triage completed. kj2 16:22 Patient has correct armband on for positive identification. Bed in low position. Call kj2 light in reach. Side rails up X 1. Provided Education on: call light. 16:22 Arm band placed on Patient placed. kj2 17:22 CT Soft Tissue Neck W/contr In Process Unspecified. EDMS 17:58 Anum Silva MD is Referral Physician. ms3 18:06 No provider procedures requiring assistance completed. IV discontinued, intact, kj2 bleeding controlled, No redness/swelling at site. Pressure dressing applied. Administered Medications: 18:21 Drug: Clindamycin PO 300 mg PO once Route: PO; kj2 18:21 Follow up: Response: Medication administered at discharge. kj2 18:21 Drug: Decadron - Dexamethasone IVP 10 mg IVP once Route: IVP; Site: left antecubital; kj2 18:21 Follow up: Response: Medication administered at discharge. kj2 Medication: 16:22 VIS not applicable for this client. kj2 Outcome: 17:58 Discharge ordered by . ms3 18:08 Discharged to home ambulatory, kj2 18:08 Condition: stable 18:08 Discharge instructions given to patient, Instructed on discharge instructions, follow up and referral plans. Demonstrated understanding of instructions, follow-up care, medications, 18:22 Patient left the ED. kj2 Signatures: Dispatcher [employer] EDJalen Corral Marcus, DO DO ms3 Yelena Simmons Justin jc4 Alka Griggs, RN RN kj2
[2024-12-12 18:27] VITALS: O2SAT 100
[2024-12-12 18:29] VITALS: BP 116/70; TEMP 98
== END 2024-12-12 18:22 | disposition home or self-care (01) ==
LOC: ER 14:51
DX: J36 Peritonsillar abscess (principal)
CPT/HCPCS: 85025; 80048; 36415; 70491; 96374; 99284; Q9967; J1100